=== PATIENT | female | born 1960 | race Caucasian/White ===

== ENCOUNTER 2018-10-07 10:12 | Outpatient (REF) | payer OTHER, SELFPAY ==
--- NOTE | 2018-10-07 09:00 | PAPFT_PTH ---
PATIENT: Manasa Albert LOC: [facility] U#:[id number] AGE/SX: 58/F ROOM: RE10/07/[address]: SAMARA Calvo : 1960 BED: DIS: 10/07/2018 SPEC #: [id number] RECD: 10/07/18 13:11 STATUS: JUANI RICO #: [id number] KRISHAN: 10/07/18 09:[address]: Khadijah Polanco DEPT: FA Cytology RECD BY: Ary Palmer ENTERED: 10/07/18 13:12 SP TYPE: PAPFT OTHR DR: Frank Gonsalez MD Tissues: 1 - CX/ENDOCX FOR PAP SMEARS Procedures: PAP THIN PREP/UVM Screening HPV DNA PROBE Comments: [id number]
== END 2018-10-07 10:32 ==
LOC: LBN 10:12
PROVIDERS: PCP Family Medicine; Visit Provider Nurse Practitioner Family
DX: N89.8 Other specified noninflammatory disorders of vagina (principal); Z12.4 Encounter for screening for malignant neoplasm of cervix; Z11.51 Encounter for screening for human papillomavirus (HPV)
CPT/HCPCS: 88142; 87480; 87510; 87624; 87660

== ENCOUNTER 2018-11-26 07:25 | Emergency (ER) | payer OTHER, SELFPAY ==
[2018-11-26] VITALS (16 sets, daily range): BP systolic 124–138; BP diastolic 73–84; PULSE 87–107; RESP 4–88; TEMP 37; O2SAT 90–98
--- NOTE | 2018-11-26 07:36 | W.ED.GENAD ---
Discharge Plan Disposition Patient Disposition: [facility] Discharge Details Chief Complaint: RespSymp Clinical Impression: Pneumonia, Asthma Primary Care Provider: Frank Gonsalez ED Provider: Monroe Carnes Home Meds and New Rx's Prescriptions: No Action acyclovir 800 mg tablet 800 mg PO Q4H Qty: 35 RF: 0 hydrocodone-homatropine [Hydromet] 5-1.5 mg/5 mL syrup 5 ml PO Q6H MDD 10 ml PRN (Reason: cough) Qty: 100 RF: 0 Aerochamber Plus Flow-Vu,S Msk 1 EACH spacer 1 ea Miscellaneous QID PRNRF: 0 Triumeq 1 EACH tablet 1 tab PO DAILY RF: 0 Prezcobix 1 EACH tablet 1 tab PO DAILY RF: 0 albuterol sulfate [ProAir HFA] 8.5 GM HFA aerosol inhaler 2 puff Inhalation Q4H PRN Qty: 3 RF: 1 zolpidem [Ambien] 5 MG tablet 5 mg PO HS PRNQty: 30 RF: 0 Metoprolol Succinate 50 MG TAB.ER.24H 50 mg PO DAILY Qty: 90 RF: 3 hydrochlorothiazide 25 MG tablet 1 tab PO DAILY Qty: 90 RF: 3 aspirin 325 MG tablet 325 mg PO DAILY RF: 0 Discharge Data Discharge Date/Time-TO BE ENTERED AT DEPARTURE: 11/26/18 12:03 Medical Decision Making <Calvin Babin MD - Last Filed: 11/28/18 15:17> Patient presenting with 1 week of worsening shortness of breath, wheezing. She had fever yesterday. She has history of asthma and HIV. She is not febrile here. She is hypoxic on room air with mild respiratory distress. She has been started on a DuoNeb. We will continue with [address] IV and give Solu-Medrol. She is complaining of some chest tightness which is likely all related to an asthma exacerbation. However, we will obtain EKG and troponin. Will need chest x-ray. Very likely will need admission but can re-evaluate after nebs and studies. Patient will be signed out to on coming physician, Dr. Carnes. <Monroe Carnes MD - Last Filed: 12/01/18 20:50> 8:15 -- Care signed out to me by Dr. Babin with plan to follow-up on labs, ECG, chest x-ray and reassess patient for disposition. Please see Dr. Camp's documentation regarding initial ED presentation and course. 9:45 -- Reviewed and interpreted by radiology: Mild opacities in the lower lobes may represent atelectasis or pneumonia. ECG reviewed and interpreted by me: Normal sinus rhythm 97 bpm, normal axis, no STEMI. Labs reviewed and leukocytosis noted. Hypokalemia noted. I will give K-Dur 20meq. Patient reassessed and remains with shortness of breath, tachypnea and wheeze despite 3 albuterol neb treatments. Patient notes albuterol is not helping. She did receive Solu-Medrol earlier. Decision to obtain outside hospital records. I obtained outside hospital records and reviewed CD4 count from 10/24/2018 that was noted to be 188. HIV viral load was noted to be 43 copies. Return for possible PCP pneumonia. I will initiate treatment with Bactrim IV. Patient does have a history of DVT. She is not anticoagulated. Given presentation with tachycardia, hypoxia and shortness of breath I am worried about potential PE in addition to infectious process. Will CT chest. Call placed to [facility] to request transfer. 10:21 -- Spoke with critical care at [facility]. Recommend checking abg. Agrees with CT. Recommends calling back after results for possible transfer. 10:53 -- Spoke with Dr. Irving who will accept patient in transfer. 11:20 -- Bed noted to be available. Medic called for transfer. CT of the chest interpreted by radiology:IMPRESSION: 1. No definite pulmonary embolism is seen to the level of the lobar pulmonary arterial branches bilaterally. The heterogeneous or decreased density of some small segmental and subsegmental pulmonary arterial branches may reflect inadequate enhancement, beam hardening, or motion, flow, or partial volume averaging artifact. One or more small segmental or subsegmental pulmonary emboli cannot be excluded. 2. Mild opacities in lobe right middle lobe and lingula and both lower lobes may represent atelectasis or pneumonia. Labs reviewed - ABG: pO2 63mmHg on 4L O2. pCO2 43mmHg. Will increase oxygen to 6L. -- Patient to continue bactrim en route to [facility] to receive total trimethoprim 508mg dose. HPI <Calvin Babin MD - Last Filed: 11/28/18 15:17> General Date/Time Provider Initiated Documentation: 11/26/18 07:34. Limitations to Documentation: no limitations. Information obtained by: patient. HPI Narrative: Patient presents to ED with complaints of difficulty breathing, chest tightness, wheezing. Patient does have a history of asthma. It has not bothered her for some time. She came down with a cold about a week ago. Her breathing has got progressively worse. She is been using her inhaler more recently a friend nebulizer. She is to the point where she is extremely short of breath especially with exertion, wheezing persistently, cough productive of whitish-yellow sputum. She describes tightness in her chest but not pain. She had a fever yesterday. She has nausea but no vomiting or abdominal pain. She does have a history of HIV. Counts have been good. She has had PCP pneumonia in the very distant past. She has been HIV positive since the . Related Data Home Medications Medication Instructions Recorded Confirmed Aerochamber Plus Flow-Vu,S Msk 01/04/13 10/21/18 aspirin 325 mg PO DAILY 06/24/13 11/26/18 Prezcobix 1 tab PO DAILY 10/26/16 11/26/18 Triumeq 1 tab PO DAILY 10/26/16 11/26/18 albuterol sulfate [ProAir HFA] 2 puff INHALATION Q4H PRN #3 10/26/16 11/26/18 inhaler zolpidem [Ambien] 5 mg PO HS PRN #30 tab 10/26/16 11/26/18 hydrochlorothiazide 1 tab PO DAILY #90 tab 01/25/18 11/26/18 acyclovir 800 mg tablet 800 mg PO Q4H #35 tab 10/21/18 11/26/18 hydrocodone-homatropine 5 mg-1.5 5 ml PO Q6H PRN #100 ml MDD 10 ml 10/21/18 11/26/18 mg/5 mL oral syrup Previous Rx's Medication Instructions Recorded hydrochlorothiazide 1 tab PO DAILY #90 tab 01/25/18 acyclovir 800 mg tablet 800 mg PO Q4H #35 tab 10/21/18 hydrocodone-homatropine 5 mg-1.5 5 ml PO Q6H PRN #100 ml MDD 10 ml 10/21/18 mg/5 mL oral syrup Allergies Allergy/AdvReac Type Severity Reaction Status Date / Time clindamycin Allergy Severe Verified 11/26/18 09:31 clarithromycin Allergy Mild Verified 11/26/18 09:31 halothane Allergy Mild Verified 11/26/18 09:31 Penicillins Allergy Unknown Verified 11/26/18 09:31 Opioids - Morphine Analogues AdvReac Severe Nausea Verified 11/26/18 09:31 tramadol AdvReac Severe NAUSEA, Verified 11/26/18 09:31 VOMITING diazepam AdvReac Mild HALLUCINATI Verified 11/26/18 09:31 ONS skintastic Allergy Uncoded 11/26/18 09:31 Review of Systems <Calvin Babin MD - Last Filed: 11/28/18 15:17> Review of Systems 05/22 Review of Systems completed and is negative except as stated above in HPI (Systems reviewed: Const, Eyes, ENT, Resp, CV, GI, , MSK, Skin, Neuro) PFSH <Calvin Babin MD - Last Filed: 11/28/18 15:17> Medical History HIV positive (Chronic) Hypertension (Chronic) Morbid obesity (Chronic) Mild intermittent asthma (Chronic) Surgical History Total replacement of hip (Chronic) section (Inactive) HERNIA REPAIR (Inactive) Open Carpal Tunnel release (Inactive) PROCEDURES (Inactive) Family History Mother Essential hypertension Heart disease Father Heart disease Sister No problems noted. Brother Essential hypertension Heart disease Hyperlipidemia Son Depression Asthma Daughter Depression Brother Substance abuse Grandfather Substance abuse Social History Smoking/Tobacco Use Status: Never Drug use: Never Do you feel safe in your relationship?: Yes Exam <Calvin Babin MD - Last Filed: 11/28/18 15:17> Narrative Exam Narrative: Vitals: Afebrile. Tachycardic. Room air pulse oximetry in the high 80s. On 2 L nasal cannula 97. Const: Obese female mild respiratory distress. HEENT: NC/AT. Normal facial exam. OP clear. Eyes: Normal conjunctiva and sclera. Neck: Supple. Trachea midline. Lungs: Mild respiratory distress with diffuse wheezing throughout. Cor: RRR without murmur/gallop. Good radial pulses. Tachycardic. GI: Soft, non-distended. Neuro: A+O x 3. CN grossly in tact. Good strength and no focal deficit. Ext: No C/C/E. No deformity or tenderness. Skin: Warm and dry. Sign Out <Calvin Babin MD - Last Filed: 11/28/18 15:17> Sign Out Data: Sign Out Comment: Signed out to Dr. Carnes pending labs, CXR, EKG and re-evaluation after nebs. Last updated by Calvin Babin MD at 11/26/18 08:10
[2018-11-26] MEDS: Albuterol/Ipratropium 3 ML UPD VIAL (07:38)
--- NOTE | 2018-11-26 07:45 | DI.RAD_ITS ---
SYMPTOM/DIAGNOSIS: COUGH, SOB PA AND LATERAL CHEST: Comparison is made with November 2010 The heart size is normal. There is a question of bilateral patchy opacities. No focal consolidation is seen. There is no evidence of an effusion. IMPRESSION: Question of patchy bilateral infiltrates.
--- NOTE | 2018-11-26 07:45 | ED.GENADUL_ITS ---
Discharge Plan Disposition Patient Disposition: [facility] Discharge Details Chief Complaint: RespSymp Clinical Impression: Pneumonia, Asthma Primary Care Provider: Frank Gonsalez ED Provider: Monroe Carnes Home Meds and New Rx's Prescriptions: No Action acyclovir 800 mg tablet 800 mg PO Q4H Qty: 35 RF: 0 hydrocodone-homatropine [Hydromet] 5-1.5 mg/5 mL syrup 5 ml PO Q6H MDD 10 ml PRN (Reason: cough) Qty: 100 RF: 0 Aerochamber Plus Flow-Vu,S Msk 1 EACH spacer 1 ea Miscellaneous QID PRNRF: 0 Triumeq 1 EACH tablet 1 tab PO DAILY RF: 0 Prezcobix 1 EACH tablet 1 tab PO DAILY RF: 0 albuterol sulfate [ProAir HFA] 8.5 GM HFA aerosol inhaler 2 puff Inhalation Q4H PRN Qty: 3 RF: 1 zolpidem [Ambien] 5 MG tablet 5 mg PO HS PRNQty: 30 RF: 0 Metoprolol Succinate 50 MG TAB.ER.24H 50 mg PO DAILY Qty: 90 RF: 3 hydrochlorothiazide 25 MG tablet 1 tab PO DAILY Qty: 90 RF: 3 aspirin 325 MG tablet 325 mg PO DAILY RF: 0 Discharge Data Discharge Date/Time-TO BE ENTERED AT DEPARTURE: 11/26/18 12:03 Medical Decision Making <Calvin Babin MD - Last Filed: 11/28/18 15:17> Patient presenting with 1 week of worsening shortness of breath, wheezing. She had fever yesterday. She has history of asthma and HIV. She is not febrile here. She is hypoxic on room air with mild respiratory distress. She has been started on a DuoNeb. We will continue with [address] IV and give Solu-Medrol. She is complaining of some chest tightness which is likely all related to an asthma exacerbation. However, we will obtain EKG and troponin. Will need chest x-ray. Very likely will need admission but can re- evaluate after nebs and studies. Patient will be signed out to on coming physician, Dr. Carnes. <Monroe Carnes MD - Last Filed: 12/01/18 20:50> 8:15 -- Care signed out to me by Dr. Babin with plan to follow-up on labs, ECG, chest x-ray and reassess patient for disposition. Please see Dr. Camp's documentation regarding initial ED presentation and course. 9:45 -- Reviewed and interpreted by radiology: Mild opacities in the lower lobes may represent atelectasis or pneumonia. ECG reviewed and interpreted by me: Normal sinus rhythm 97 bpm, normal axis, no STEMI. Labs reviewed and leukocytosis noted. Hypokalemia noted. I will give K-Dur 20meq. Patient reassessed and remains with shortness of breath, tachypnea and wheeze despite 3 albuterol neb treatments. Patient notes albuterol is not helping. She did receive Solu-Medrol earlier. Decision to obtain outside hospital records. I obtained outside hospital records and reviewed CD4 count from 10/24/2018 that was noted to be 188. HIV viral load was noted to be 43 copies. Return for possible PCP pneumonia. I will initiate treatment with Bactrim IV. Patient does have a history of DVT. She is not anticoagulated. Given presentation with tachycardia, hypoxia and shortness of breath I am worried about potential PE in addition to infectious process. Will CT chest. Call placed to [facility] to request transfer. 10:21 -- Spoke with critical care at [facility]. Recommend checking abg. Agrees with CT. Recommends calling back after results for possible transfer. 10:53 -- Spoke with Dr. Irving who will accept patient in transfer. 11:20 -- Bed noted to be available. Medic called for transfer. CT of the chest interpreted by radiology:IMPRESSION: 1. No definite pulmonary embolism is seen to the level of the lobar pulmonary arterial branches bilaterally. The heterogeneous or decreased density of some small segmental and subsegmental pulmonary arterial branches may reflect inadequate enhancement, beam hardening, or motion, flow, or partial volume averaging artifact. One or more small segmental or subsegmental pulmonary emboli cannot be excluded. 2. Mild opacities in lobe right middle lobe and lingula and both lower lobes may represent atelectasis or pneumonia. Labs reviewed - ABG: pO2 63mmHg on 4L O2. pCO2 43mmHg. Will increase oxygen to 6L. -- Patient to continue bactrim en route to [facility] to receive total trimethoprim 508mg dose. HPI <Calvin Babin MD - Last Filed: 11/28/18 15:17> General Date/Time Provider Initiated Documentation: 11/26/18 07:34 . Limitations to Documentation: no limitations . Information obtained by: patient . HPI Narrative: Patient presents to ED with complaints of difficulty breathing, chest tightness, wheezing. Patient does have a history of asthma. It has not bothered her for some time. She came down with a cold about a week ago. Her breathing has got progressively worse. She is been using her inhaler more recently a friend nebulizer. She is to the point where she is extremely short of breath especia lly with exertion, wheezing persistently, cough productive of whitish-yellow sputum. She describes tightness in her chest but not pain. She had a fever yesterday. She has nausea but no vomiting or abdominal pain. She does have a history of HIV. Counts have been good. She has had PCP pneumonia in the very distant past. She has been HIV positive since the . Related Data Home Medications Medication Instructions Recorded Confirmed Aerochamber Plus Flow-Vu,S Msk 01/04/13 10/21/18 aspirin 325 mg PO DAILY 06/24/13 11/26/18 Prezcobix 1 tab PO DAILY 10/26/16 11/26/18 Triumeq 1 tab PO DAILY 10/26/16 11/26/18 albuterol sulfate [ProAir HFA] 2 puff INHALATION Q4H PRN #3 10/26/16 11/26/18 inhaler zolpidem [Ambien] 5 mg PO HS PRN #30 tab 10/26/16 11/26/18 hydrochlorothiazide 1 tab PO DAILY #90 tab 01/25/18 11/26/18 acyclovir 800 mg tablet 800 mg PO Q4H #35 tab 10/21/18 11/26/18 hydrocodone-homatropine 5 mg-1.5 5 ml PO Q6H PRN #100 ml MDD 10 ml 10/21/18 11/26/18 mg/5 mL oral syrup Previous Rx's Medication Instructions Recorded hydrochlorothiazide 1 tab PO DAILY #90 tab 01/25/18 acyclovir 800 mg tablet 800 mg PO Q4H #35 tab 10/21/18 hydrocodone-homatropine 5 mg-1.5 5 ml PO Q6H PRN #100 ml MDD 10 ml 10/21/18 mg/5 mL oral syrup Allergies Allergy/AdvReac Type Severity Reaction Status Date / Time clindamycin Allergy Severe Verified 11/26/18 09:31 clarithromycin Allergy Mild Verified 11/26/18 09:31 halothane Allergy Mild Verified 11/26/18 09:31 Penicillins Allergy Unknown Verified 11/26/18 09:31 Opioids - Morphine Analogues AdvReac Severe Nausea Verified 11/26/18 09:31 tramadol AdvReac Severe NAUSEA, Verified 11/26/18 09:31 VOMITING diazepam AdvReac Mild HALLUCINATI Verified 11/26/18 09:31 ONS skintastic Allergy Uncoded 11/26/18 09:31 Review of Systems <Calvin Babin MD - Last Filed: 11/28/18 15:17> Review of Systems 05/22 Review of Systems completed and is negative except as stated above in HPI (Systems reviewed: Const, Eyes, ENT, Resp, CV, GI, , MSK, Skin, Neuro) PFSH <Calvin Babin MD - Last Filed: 11/28/18 15:17> Medical History HIV positive (Chronic) Hypertension (Chronic) Morbid obesity (Chronic) Mild intermittent asthma (Chronic) Surgical History Total replacement of hip (Chronic) section (Inactive) HERNIA REPAIR (Inactive) Open Carpal Tunnel release (Inactive) PROCEDURES (Inactive) Family History Mother Essential hypertension Heart disease Father Heart disease Sister No problems noted. Brother Essential hypertension Heart disease Hyperlipidemia Son Depression Asthma Daughter Depression Brother Substance abuse Grandfather Substance abuse Social History Smoking/Tobacco Use Status: Never Drug use: Never Do you feel safe in your relationship?: Yes Exam <Calvin Babin MD - Last Filed: 11/28/18 15:17> Narrative Exam Narrative: Vitals: Afebrile. Tachycardic. Room air pulse oximetry in the high 80s. On 2 L nasal cannula 97. Const: Obese female mild respiratory distress. HEENT: NC/AT. Normal facial exam. OP clear. Eyes: Normal conjunctiva and sclera. Neck: Supple. Trachea midline. Lungs: Mild respiratory distress with diffuse wheezing throughout. Cor: RRR without murmur/gallop. Good radial pulses. Tachycardic. GI: Soft, non-distended. Neuro: A+O x 3. CN grossly in tact. Good strength and no focal deficit. Ext: No C/C/E. No deformity or tenderness. Skin: Warm and dry. Sign Out <Calvin Babin MD - Last Filed: 11/28/18 15:17> Sign Out Data: Sign Out Comment: Signed out to Dr. Carnes pending labs, CXR, EKG and re- evaluation after nebs. Last updated by Calvin Babin MD at 11/26/18 08:10
[2018-11-26] MEDS: methylPREDNISolone SUCC 125 MG VIAL IVP (08:10)
[2018-11-26 08:13] LABS: Abs Immature Grans 0.04 k/cumm (0.0-0.09); Absolute Basophil Count 0.02 k/cumm (0.0-0.2); Absolute Eosinophil Count 0.02 k/cumm (0.0-0.7); Absolute Lymphocyte Count 3.69 k/cumm (1.2-3.4); Absolute Monocyte Count 1.08 k/cumm (0.11-0.7); Basophils % 0.2; Eosinophils % 0.2; HGB 13.2 g/dL (12.0-15.5); Immature Grans % 0.4; Lymphocytes % 32.3; Mean Corp. HGB Concentration 32.2 g/dL (32.0-36.0); Mean Corpuscular Hemoglobin 28.1 pg (27.0-33.0); Mean Corpuscular Volume 87.2 fL (80-95); Mean Platelet Volume 11.4 fL (8.0-11.0); Monocytes % 9.5; Neutrophils % 57.4; Platelet Count 149 x1000/uL (130-400); White Blood Cell Count 11.42 k/cumm (4.4-10.8)
[2018-11-26 08:18] LABS: Absolute Neutrophil Count 6.56 k/cumm (1.2-6.7)
[2018-11-26] MEDS: Albuterol 2.5 MG/3 ML INH SOLN VIAL UPD ×2 (08:20→08:50)
[2018-11-26 08:25] LABS: ALT 39 U/L (12-78); AST 35 U/L (15-37); Albumin 3.1 g/dL (3.4-5.0); Alkaline Phosphatase 99 U/L (46-116); Anion Gap 10.4 mmol/L (3-11); BUN 12 mg/dL (7-18); Bilirubin, Total 0.9 mg/dL (0.2-1.0); CO2 26.6 mmol/L (21.0-32.0); CREATININE 0.91 mg/dL (0.55-1.02); Calcium 8.3 mg/dL (8.5-10.1); Chloride 94 mmol/L (98-107); Glucose 108 mg/dL (70-100); Potassium 3.3 mmol/L (3.5-5.1); Sodium 131 mmol/L (136-145); Total Protein 8.6 g/dL (6.4-8.2)
[2018-11-26 08:27] LABS: Magnesium 1.8 mg/dL (1.8-2.4)
[2018-11-26 08:32] LABS: Troponin I < 0.02 ng/mL (0.00-0.06)
[2018-11-26 08:36] LABS: Diff Comment Agrees w/ Instrument
[2018-11-26 08:56] LABS: D-Dimer 4709 ng/mlFEU (<500)
--- NOTE | 2018-11-26 09:07 | DI.VRAD_ITS ---
EXAM: XR Chest, 2 Views EXAM DATE/TIME: 11/26/2018 7:51 AM CLINICAL HISTORY: 58 years old, female; Signs and symptoms; Cough and shortness of breath; Cough with hemorrhage TECHNIQUE: Imaging protocol: XR of the chest, 2 views. COMPARISON: CR RIGHT RIBS PA CXR-3 VIEWS 03/27/2015 10:03 PM FINDINGS: Lungs: Mild opacities in the lower lobes may represent atelectasis or pneumonia. Pleural space: Unremarkable. No pleural effusion. No pneumothorax. Heart/Mediastinum: Stable cardiac silhouette Bones/joints: Osseous structures are stable IMPRESSION: Mild opacities in the lower lobes may represent atelectasis or pneumonia. Dictated and Authenticated by: Gina Gallegos MD. Ordering:FREDDY Simpson MD
[2018-11-26] MEDS: Potassium Chloride 10 MEQ TABCR 20 MEQ PO (09:16)
--- NOTE | 2018-11-26 09:34 | DI.CT_ITS ---
SYMPTOM/DIAGNOSIS: SHORTNESS OF BREATH, TACHY, HYPOXIC, CD4 LOW CHEST CT FOR PULMONARY EMBOLISM: CT angiography was performed with multi slice acquisition and multi planar and 3D reconstruction. The exam is limited by patient body habitus and respiratory motion greater at the lung bases. No pulmonary emboli are identified however, small emboli at the lung bases cannot be entirely excluded. There are no pleural or pericardial effusions or evidence of adenopathy. There are mild patchy areas of increased density seen greatest in the left upper lobe. Additional patchy densities are seen in the left lower and right lower lobes. There is a patchy infiltrate in the medial right upper lobe. IMPRESSION: Bilateral pneumonia. No evidence of pulmonary emboli
[2018-11-26] MEDS: Omnipaque 350 MG/ML 100 ML BTL IJ (10:01)
--- NOTE | 2018-11-26 10:22 | DI.VRAD_ITS ---
EXAM: CT Angiography Chest With Contrast EXAM DATE/TIME: 11/26/2018 9:35 AM CLINICAL HISTORY: 58 years old, female; Signs and symptoms; Cough and shortness of breath; Cough with hemorrhage; Patient HX: Tachycardia, hypoxia. TECHNIQUE: Imaging protocol: Axial computed tomographic angiography images of the chest with intravenous contrast using CT angiography protocol. Coronal and sagittal reformatted images were created and reviewed. 3D rendering: MIP reconstructed images were created and reviewed. Radiation optimization: All CT scans at this facility use at least one of these dose optimization techniques: automated exposure control; mA and/or kV adjustment per patient size (includes targeted exams where dose is matched to clinical indication); or iterative reconstruction. Contrast material: OMNIPAQUE 350; Contrast volume: 100 ml; Contrast route: IV; COMPARISON: CR XR CHEST 2V PA LATERAL 11/26/2018 8:42 AM FINDINGS: Pulmonary arteries: No definite pulmonary embolism is seen to the level of the lobar pulmonary arterial branches bilaterally. The heterogeneous or decreased density of some small segmental and subsegmental pulmonary arterial branches may reflect inadequate enhancement, beam hardening, or motion, flow, or partial volume averaging artifact. One or more small segmental or subsegmental pulmonary emboli cannot be excluded. Aorta: Normal. No aortic aneurysm. No aortic dissection. Lungs: Mild opacities in lobe right middle lobe and lingula and both lower lobes may represent atelectasis or pneumonia. Pleural space: Normal. No pneumothorax. No pleural effusion. Heart: Normal. No cardiomegaly. No pericardial effusion. Lymph nodes: Unremarkable. No enlarged lymph nodes. Bones/joints: Unremarkable. No acute fracture. Soft tissues: Unremarkable. IMPRESSION: 1. No definite pulmonary embolism is seen to the level of the lobar pulmonary arterial branches bilaterally. The heterogeneous or decreased density of some small segmental and subsegmental pulmonary arterial branches may reflect inadequate enhancement, beam hardening, or motion, flow, or partial volume averaging artifact. One or more small segmental or subsegmental pulmonary emboli cannot be excluded. 2. Mild opacities in lobe right middle lobe and lingula and both lower lobes may represent atelectasis or pneumonia. Dictated and Authenticated by: Gina Gallegos MD. Ordering:FILI Childress MD
[2018-11-26 11:05] LABS: BE 2.2 mmol/L (-3-3); HCO3 27 mmol/L (22-28); pCO2 43 mmHg (34-47); pH 7.41 (7.35-7.45); pO2 63 mmHg (83-108); sO2 93 % (94-98); tCO2 24 mmol/L (22-29)
[2018-11-26 11:06] LABS: FIO2L 4 L; Site Right Radial
[2018-11-26 11:07] LABS: LDH 266 U/L (81-234)
--- NOTE | 2018-11-26 12:32 | NUR.NOTE ---
2nd bag of bactirm hanging for transport to [facility]. 3rd bag given to medic to hang when 2nd bag complete.Nursing Note:
== END 2018-11-26 12:03 | disposition short-term general hospital (02) ==
PROVIDERS: Emergency Medicine; Emergency Provider Student in an Organized Health Care Education/Training Program; PCP Family Medicine
DX: J18.9 Pneumonia, unspecified organism (principal); J45.909 Unspecified asthma, uncomplicated
CPT/HCPCS: 36415; 71275; 80053; 82805; 87040; 93005; 96365; 96375; 99285; 36600; 71046; 83605; 83615; 83735; 84484; 85025; 85379; 93010; J2930; J3490; J7613; J7620

== ENCOUNTER 2019-03-07 15:06 | Outpatient (CLI) | payer OTHER, SELFPAY ==
[2019-03-07 17:56] LABS: Abs Immature Grans 0.01 k/cumm (0.0-0.09); Absolute Basophil Count 0.01 k/cumm (0.0-0.2); Absolute Eosinophil Count 0.09 k/cumm (0.0-0.7); Absolute Monocyte Count 0.48 k/cumm (0.11-0.7); Absolute Neutrophil Count 2.24 k/cumm (1.2-6.7); Basophils % 0.2; Eosinophils % 1.8; HCT 41.6 % (36.0-46.0); HGB 12.8 g/dL (12.0-15.5); Immature Grans % 0.2; Lymphocytes % 43.7; Mean Corp. HGB Concentration 30.8 g/dL (32.0-36.0); Mean Corpuscular Hemoglobin 28.9 pg (27.0-33.0); Mean Corpuscular Volume 93.9 fL (80-95); Mean Platelet Volume 11.2 fL (8.0-11.0); Monocytes % 9.5; Neutrophils % 44.6; Platelet Count 190 x1000/uL (130-400); RBC 4.43 m/cumm (4.00-5.20); RBC Distribution Width 14.8 % (11.7-14.6); White Blood Cell Count 5.03 k/cumm (4.4-10.8)
[2019-03-07 18:05] LABS: Ferritin 84 ng/mL (8-388); TSH (W/Ref FT4) 2.62 uIU/mL (0.36-3.74)
[2019-03-07 18:16] LABS: Iron 29 ug/dL (50-175)
[2019-03-09 10:36] LABS: CD3 77 % (62-87); CD4 11 % (35-63); CD8 65 % (10-35)
[2019-03-09 14:57] LABS: HIV-1 RNA Quantification <20 copies/mL (UNDECT)
== END 2019-03-07 15:26 ==
PROVIDERS: Nurse Practitioner; PCP Family Medicine; Visit Provider Internal Medicine Infectious Disease
DX: L65.9 Nonscarring hair loss, unspecified (principal); L67.9 Hair color and hair shaft abnormality, unspecified; B20 Human immunodeficiency virus [HIV] disease
CPT/HCPCS: 36415; 87536; 82728; 83540; 84443; 85025; 86359; 86360

== ENCOUNTER 2019-09-18 21:55 | Emergency (ER) | payer OTHER, SELFPAY ==
[2019-09-18] VITALS (16 sets, daily range): BP systolic 64–152; BP diastolic 32–115; PULSE 70–155; RESP 8–42; O2SAT 86–100
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
[2019-09-18] MEDS: Normal Saline 1,000 ML 1000 ML IV (22:05)
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
[2019-09-18] MEDS: fentaNYL 100 MCG/2 ML VIAL IVP ×2 (22:32→23:44)
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
[2019-09-18 22:35] LABS: Abs Immature Grans 0.16 k/cumm (0.0-0.09); HGB 10.9 g/dL (12.0-15.5); Mean Corp. HGB Concentration 29.5 g/dL (32.0-36.0); Mean Corpuscular Hemoglobin 27.2 pg (27.0-33.0); Mean Corpuscular Volume 92.3 fL (80-95); Mean Platelet Volume 10.2 fL (8.0-11.0); Platelet Count 154 x1000/uL (130-400); RBC 4.01 m/cumm (4.00-5.20); RBC Distribution Width 15.2 % (11.7-14.6); White Blood Cell Count 17.89 k/cumm (4.4-10.8)
[2019-09-18 22:36] LABS: Absolute Lymphocyte Count 9.84 k/cumm (1.2-3.4); Absolute Monocyte Count 1.61 k/cumm (0.11-0.7); Absolute Neutrophil Count 6.44 k/cumm (1.2-6.7); Atypical Lymphocytes % 8
[2019-09-18 22:37] LABS: Diff Comment Manual Differential; Hypochromasia 1+
[2019-09-18 22:38] LABS: Polychromasia Present
[2019-09-18 22:53] LABS: ALT 39 U/L (14-59); AST 57 U/L (15-37); Albumin 2.6 g/dL (3.4-5.0); Alkaline Phosphatase 86 U/L (46-116); Anion Gap 7.8 mmol/L (3-11); BUN 21 mg/dL (7-18); Bilirubin, Total 0.3 mg/dL (0.2-1.0); CO2 29.2 mmol/L (21.0-32.0); CREATININE 0.93 mg/dL (0.55-1.02); Calcium 7.6 mg/dL (8.5-10.1); Chloride 105 mmol/L (98-107); Glucose 209 mg/dL (74-106); INR 1.1 (0.9-1.1); Magnesium 1.8 mg/dL (1.8-2.4); Potassium 3.9 mmol/L (3.5-5.1); Sodium 142 mmol/L (136-145); Total Protein 6.7 g/dL (6.4-8.2); Troponin I < 0.05 ng/Ml (<0.06)
[2019-09-18] MEDS: diphenhydrAMINE 50 MG/ML VIAL (23:02)
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
[2019-09-18 23:33] LABS: LDH 334 U/L (81-234)
[2019-09-18] MEDS: VANCOMYCIN 1,500 MG in Normal Saline 250 ML 166.6666 MG IVPB (23:45)
[2019-09-18] MEDS: Albuterol/Ipratropium 3 ML UPD VIAL (23:53)
[2019-09-19] MEDS: Omnipaque 350 MG/ML 100 ML BTL IJ (00:05)
--- NOTE | 2019-09-19 00:18 | NUR.NOTE ---
Ennis from patient's pocket totalled $324.25 counted and checked by myself and Amaury. Given to daughter, Vilma along with her pocket book, cell phone noted in front pocket of her pocket book. Patient's coat also given to daughter. No other personal belongs (clothing cut, soiled and was disposed).
--- NOTE | 2019-09-19 00:35 | NUR.NOTE ---
2226 one unit uncrossed O neg blood rapid infused in R forearm. 223 Packed cells infused and second unit started. 2235 second unit completed. see rapid transfusion record for co-sign 2228 pt increasingly difficult to arouse. tachypnea. 223 Providers reduced R tib/fib with assist and splint applied after suture 2232 temp 36.1 2344 89% O2 sats - RT placed on 15L NRB mask, HR 98, RR 36, 117/55 2255 FAST scan by provider at bedside [address] on monitor and with RT, medic, certified hyperbaric technician and RN [address] 2345 pt increasingly difficult to arouse. aware and in to reassess pt. [id number] pt transported to [facility] via [facility]. report given to RBOIN De Los Santos. Vancomycin infusing on departure.
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
== END 2019-09-19 00:10 | disposition short-term general hospital (02) ==
PROVIDERS: Physician Assistant; Emergency Provider Physician Assistant; PCP Family Medicine
DX: I95.89 Other hypotension (principal); S85.911 Laceration of unspecified blood vessel at lower leg level, right leg; S22.41XA Multiple fractures of ribs, right side, initial encounter for closed fracture; S82.251B Displaced comminuted fracture of shaft of right tibia, initial encounter for open fracture type I or II; S82.451B Displaced comminuted fracture of shaft of right fibula, initial encounter for open fracture type I or II; V43.52XA Car driver injured in collision with other type car in traffic accident, initial encounter; I10 Essential (primary) hypertension; Z21 Asymptomatic human immunodeficiency virus [HIV] infection status; J45.909 Unspecified asthma, uncomplicated
CPT/HCPCS: 27752; 36415; 36430; 74177; 80053; 86850; 86900; 86901; 86920; 94640; 96365; 96368; 96375; 96376; 99291; 99292; 70450; 71045; 72125; 72128; 72131; 73600; 83615; 83735; 84484; 85025; 85610; 85730; 86880; J1200; J3010; J3490; J7620; P9016

== ENCOUNTER 2020-01-08 14:20 | Outpatient (REF) | payer OTHER, SELFPAY ==
[2020-01-08 12:15] LABS: Bilirubin Negative (Negative); Blood Negative (Negative); Clarity Clear (Clear); Glucose Negative (Negative); Ketones Negative (Negative); Leukocyte Esterase Negative (Negative); Nitrite Negative (Negative); Specific Gravity >= 1.030 (1.005-1.025); Urobilinogen 0.2 EU/dL (Up TO 0.2); pH 5.5 (5-8)
== END 2020-01-08 14:40 ==
LOC: LBN 14:20
PROVIDERS: PCP Family Medicine; Visit Provider Internal Medicine Infectious Disease
DX: R32 Unspecified urinary incontinence (principal)
CPT/HCPCS: 81003

== ENCOUNTER 2020-04-04 21:11 | Outpatient (REF) | payer OTHER, SELFPAY ==
[2020-04-04 14:21] LABS: Abs Immature Grans 0.01 10^3/uL (0.0-0.06); Absolute Basophil Count 0.02 10^3/uL (0.0-0.2); Absolute Eosinophil Count 0.05 10^3/uL (0.0-0.7); Absolute Lymphocyte Count 2.24 10^3/uL (1.2-3.4); Absolute Monocyte Count 0.52 10^3/uL (0.1-0.8); Absolute Neutrophil Count 1.88 10^3/uL (1.2-6.7); Basophils % 0.4; Eosinophils % 1.1; HCT 43.2 % (36.0-46.0); HGB 13.1 g/dL (11.2-15.7); Immature Grans % 0.2; Lymphocytes % 47.5; MCH 27.8 pg (27.0-33.0); MCHC 30.3 % (32.0-36.0); MCV 91.7 fL (80-95); Neutrophils % 39.8; Nucleated RBC 0 %; Platelet Count 220 10^3/uL (130-400); RBC 4.71 10^6/uL (3.93-5.22); RDW 15.1 % (11.7-14.6); RDW-SD 51.8 fL; WBC 4.72 10^3/uL (4.4-10.8)
[2020-04-04 14:29] LABS: ALT 25 U/L (14-59); AST 20 U/L (15-37); Albumin 3.3 g/dL (3.4-5.0); Alkaline Phosphatase 92 U/L (46-116); Anion Gap 5.7 mmol/L (3-11); BUN 17 mg/dL (7-18); Bilirubin, Total 0.4 mg/dL (0.2-1.0); C-Reactive Protein 0.94 mg/dL (0.0-0.3); CO2 32.3 mmol/L (21.0-32.0); CREATININE 0.67 mg/dL (0.55-1.02); Calcium 8.8 mg/dL (8.5-10.1); Chloride 103 mmol/L (98-107); Glucose 75 mg/dL (74-106); Potassium 4.3 mmol/L (3.5-5.1); Sodium 141 mmol/L (136-145); Total Protein 7.6 g/dL (6.4-8.2)
[2020-04-04 14:59] LABS: ESR 26 mm/hr (0-30)
== END 2020-04-04 21:31 ==
LOC: LBN 21:11
PROVIDERS: PCP Family Medicine; Visit Provider Family Medicine
DX: B20 Human immunodeficiency virus [HIV] disease (principal)
CPT/HCPCS: 80053; 85652; 85025; 86140

== ENCOUNTER 2020-05-03 07:32 | Outpatient (CLI) | payer OTHER, MEDICAID, SELFPAY ==
[2020-05-06 16:53] LABS: Patient Race White; SARS-CoV-2 RNA Undetected (Undetected); SARS-CoV-2 Specimen Source Nasopharynx
== END 2020-05-03 07:52 ==
PROVIDERS: PCP Family Medicine; Visit Provider Family Medicine
DX: R05 Cough (principal)
CPT/HCPCS: U0003

== ENCOUNTER 2020-06-07 18:29 | Emergency (ER) | payer OTHER, SELFPAY, MEDICAID ==
[2020-06-07 18:37] VITALS: BP 165/99; PULSE 102; RESP 22; TEMP 36.6; O2SAT 94
--- NOTE | 2020-06-07 18:38 | W.ED.GENAD ---
Discharge Plan Disposition Patient Disposition: HOME Condition: Stable Discharge Details Clinical Impression: Right foot sprain Primary Care Provider: Frank Gonsalez ED Provider: Ryder Taylor Home Meds and New Rx's Prescriptions: Continued Biktarvy 50-200-25 mg tablet 1 tab PO DAILY Qty: 30 RF: 11 escitalopram oxalate 10 mg tablet 10 mg PO DAILY Qty: 30 RF: 11 lorazepam 0.5 mg tablet 0.5 mg PO BID PRN (Reason: anxiety) Qty: 30 RF: 5 (DME) Aerochamber Plus Flow-Vu,S Msk 1 EACH spacer 1 ea Miscellaneous QID RF: 0 Prezcobix 1 EACH tablet 1 tab PO DAILY RF: 0 albuterol sulfate [ProAir HFA] 8.5 GM HFA aerosol inhaler 2 puff Inhalation Q4H PRN Qty: 3 RF: 1 hydrochlorothiazide 25 mg tablet 25 mg PO DAILY Qty: 90 RF: 3 metoprolol succinate 50 mg tablet extended release 24 hr 50 mg PO DAILY Qty: 90 RF: 3 ascorbic acid (vitamin C) 500 mg capsule 500 mg PO DAILY RF: 0 ferrous sulfate 325 mg (65 mg iron) tablet 325 mg PO DAILY RF: 0 aspirin 325 MG tablet 325 mg PO DAILY RF: 0 Discharge Instructions Instructions: Foot Sprain (ED) Additional Instructions: if pain is not improving within a week follow up with your orthopedist return to the emergency department for severe worsening pain or new pain such as chest pain Medical Decision Making 59 yo female states she was doing laundry when she tripped over a run and hurt her right foot. Denies hitting head or loc and had no preceding symptoms, states it was purely mechanical trip. Has pain over distal right foot with no palpable or visible deformity. Has a leg splint on and states it is not supposed to come off for another week, had open ankle fx requiring surgical fixation last September. HAs normal pulses and sensation and can move the toes just with some discomfort. Suspect foot sprain but will xray to evaluate for fx. Is able to bear weight on the foot which is reassuring. Has no head pain, midline spine pain and no chest or abdominal tenderness so do not feel additional imaging indicated at this time xray negative for acute findings, stable exam with no new findings. ADvised to f/u with her orthopedist and return precautions given Differential Diagnosis Differential Diagnosis: fracture, contusion Imaging Data Radiologic Study: Attestation: I personally reviewed and interpreted this imaging study as follows: Imaging: X-Ray Radiologist's impression: no acute findings HPI General Mode of arrival: ambulatory. Date/Time Provider Initiated Documentation: 06/07/20 18:29. Limitations to Documentation: no limitations. Information obtained by: patient. History of Present Illness 59 year old F presents to the emergency department with the chief complaint of right foot pain, described as moderate, Patient started experiencing this hour(s) (1) and it has been constant. No relieving factors improve symptom(s), No exacerbating factors reported . Patient notes no other symptoms.. Patient did receive the following treatments prior to arrival, none Related Data Home Medications Medication Instructions Recorded Confirmed Aerochamber Plus Flow-Jaguar Rangel Msk 01/04/13 05/22/20 aspirin 325 mg PO DAILY 06/24/13 06/07/20 Prezcobix 1 tab PO DAILY 10/26/16 06/07/20 albuterol sulfate [ProAir HFA] 2 puff INHALATION Q4H PRN #3 10/26/16 06/07/20 inhaler hydrochlorothiazide 25 mg tablet 25 mg PO DAILY #90 tab 07/18/19 06/07/20 metoprolol succinate 50 mg 50 mg PO DAILY #90 tab 07/18/19 06/07/20 tablet,extended release 24 hr bictegravir 50 mg-emtricitabine 1 tab PO DAILY #30 tab 12/05/19 06/07/20 200 mg-tenofovir alafenam 25 mg tablet ascorbic acid (vitamin C) 500 mg 500 mg PO DAILY cap 12/06/19 06/07/20 capsule ferrous sulfate 325 mg (65 mg 325 mg PO DAILY 12/06/19 06/07/20 iron) tablet escitalopram oxalate 10 mg tablet 10 mg PO DAILY #30 tab 05/22/20 06/07/20 lorazepam 0.5 mg tablet 0.5 mg PO BID PRN #30 tab 05/22/20 06/07/20 Previous Rx's Medication Instructions Recorded hydrochlorothiazide 25 mg tablet 25 mg PO DAILY #90 tab 07/18/19 metoprolol succinate 50 mg 50 mg PO DAILY #90 tab 07/18/19 tablet,extended release 24 hr bictegravir 50 mg-emtricitabine 1 tab PO DAILY #30 tab 12/05/19 200 mg-tenofovir alafenam 25 mg tablet escitalopram oxalate 10 mg tablet 10 mg PO DAILY #30 tab 05/22/20 lorazepam 0.5 mg tablet 0.5 mg PO BID PRN #30 tab 05/22/20 Allergies Allergy/AdvReac Type Severity Reaction Status Date / Time clindamycin Allergy Severe Verified 06/07/20 18:44 clarithromycin Allergy Mild Verified 06/07/20 18:44 halothane Allergy Mild Verified 06/07/20 18:44 Penicillins Allergy Unknown Verified 06/07/20 18:44 amoxicillin Allergy Verified 06/07/20 18:44 Opioids - Morphine Analogues AdvReac Severe Nausea Verified 06/07/20 18:44 tramadol AdvReac Severe NAUSEA, Verified 06/07/20 18:44 VOMITING diazepam AdvReac Mild HALLUCINATI Verified 06/07/20 18:44 ONS skintastic Allergy Uncoded 06/07/20 18:44 General YARON: 1 Review of Systems All systems reviewed & are unremarkable except as noted in HPI and below Constitutional Constitutional: Denies chills, Denies fever(s) and Denies weakness Cardiovascular Cardiovascular: Denies chest pain and Denies dyspnea Respiratory Respiratory: Denies cough and Denies dyspnea Gastrointestinal Gastrointestinal: Denies abdominal pain, Denies nausea and Denies vomiting Musculoskeletal Musculoskeletal: Denies joint swelling Neurologic Neurologic: Denies weakness Psychiatric Psychiatric: Denies depression [facility] Medical History (Updated 06/07/20 @ 19:15 by Ryder Taylor MD) Alopecia Discussed with patient the need for gentle hair care, good conditioning, and gentle brushing,. At this time we will check a TSH, iron, ferritin. Will defer RPR, patient states she has not been sexually active since last RPR was checked HIV positive On HAART program. Acquired immunodeficiency syndrome diagnosied in 1999 with incident of Pneumocystis pneumonia. Followed by Dr. Rey Love in Infectious Disease down at [facility] [place]. CD4 count 321 in 2012, which is a good value. Hypertension Mild intermittent asthma Morbid obesity Surgical History section HERNIA REPAIR ABDOMINAL WALL Open Carpal Tunnel release LEFT PROCEDURES Right wrist disconnect/removal of bone Total replacement of hip 11/21/08 RIGHT HIP 09/08/11 LEFT HIP 2011 [facility] [place], B/L Family History Mother Essential hypertension Heart disease Father Heart disease Sister No problems noted. Brother Essential hypertension Heart disease Hyperlipidemia Son Depression Asthma Daughter Depression Brother Substance abuse Grandfather Substance abuse Social History Smoking/Tobacco Use Status: Never Smoking risk assessment performed?: Yes Alcohol Intake: current Alcohol Intake frequency: holidays/special occasions only Drug use: Never Substance use type: does not use Do you feel safe at home: Yes Do you feel safe in your relationship?: Yes Exam Const General: no acute distress Orientation: alert HENMT Head: normal to inspection Ears: external ears normal General nose exam: external nose normal Mouth: moist mucous membranes Eyes General: appearance normal, both eyes and all related structures Neck Neck: normal visual inspection Resp Effort & Inspection: normal respiratory effort and able to speak in complete sentences Cardio Rate: regular rate Skin General skin exam: no rashes or lesions noted Neuro General: patient alert and patient oriented x3 Extrem General: capillary refill normal Psych Mental Status: mental status grossly normal
--- NOTE | 2020-06-07 18:58 | DI.RAD_ITS ---
EXAM: XR FOOT RT COMPLETE CLINICAL HISTORY: pain s/p fall. TECHNIQUE: 2D digital imaging was performed. COMPARISON: CR RIGHT FOOT COMPLETE from 08/09/2014 FINDINGS: BONES: Since the prior examination, a orthopedic holland is in place extending from the tibia through the talus into the calcaneus. Old distal tibial and fibular fractures are noted. No definite acute fra cture or dislocation. No bony destructive lesion is seen. JOINTS: No dislocation present. SOFT TISSUE: Generalized soft tissue swelling of the foot. The foot and ankle are in a cast. IMPRESSION: No definite acute abnormality. DATA REPOSITORY: RADIATION DOSE DELIVERED:
--- NOTE | 2020-06-07 19:13 | DI.VRAD_ITS ---
PROCEDURE INFORMATION: Exam: XR Right Foot Complete Exam date and time: 06/07/2020 6:59 PM Age: 59 years old Clinical indication: Injury or trauma; Fall; Blunt trauma; Foot; Right; Injury date: 06/07/20; Prior surgery; Surgery type: Tibial rodding TECHNIQUE: Imaging protocol: XR Right foot. Views: 3 or more views. COMPARISON: 1. CR RIGHT FOOT COMPLETE 08/09/2014 7:17 PM 2. CR - XR ANKLE RT 2V 09/18/2019 10:10:08 PM FINDINGS: Bones/joints: There is generalized osteopenia. Interval placement of a tibial holland extending through the anterior calcaneus with a calcaneal screw. There are remote fractures of the distal tibia and fibula. No definite acute fracture is seen. No dislocation Soft tissues: Mild diffuse soft tissue swelling. There is overlying splint artifact. IMPRESSION: No definite acute osseous abnormality. Dictated and Authenticated by: Moustapha Sadler MD. Ordering:ROWENA Soler MD
== END 2020-06-07 19:22 | disposition home or self-care (01) ==
PROVIDERS: Emergency Provider Emergency Medicine; PCP Family Medicine
DX: S93.601A Unspecified sprain of right foot, initial encounter (principal); W01.0XXA Fall on same level from slipping, tripping and stumbling without subsequent striking against object, initial encounter; Z87.81 Personal history of (healed) traumatic fracture; Z98.890 Other specified postprocedural states; I10 Essential (primary) hypertension
CPT/HCPCS: 99283; 73630

== ENCOUNTER 2020-08-27 03:40 | Outpatient (CLI) | payer OTHER, MEDICAID, SELFPAY ==
[2020-08-27 11:19] LABS: Abs Immature Grans 0.02 10^3/uL (0.0-0.06); Absolute Basophil Count 0.03 10^3/uL (0.0-0.2); Absolute Eosinophil Count 0.03 10^3/uL (0.0-0.7); Absolute Lymphocyte Count 2.94 10^3/uL (1.2-3.4); Absolute Neutrophil Count 2.33 10^3/uL (1.2-6.7); Basophils % 0.5; Eosinophils % 0.5; HCT 42.8 % (36.0-46.0); HGB 12.9 g/dL (11.2-15.7); Immature Grans % 0.3; Lymphocytes % 49.4; MCH 27.3 pg (27.0-33.0); MCHC 30.1 % (32.0-36.0); MCV 90.5 fL (80-95); Monocytes % 10.1; Neutrophils % 39.2; Nucleated RBC 0 %; Platelet Count 199 10^3/uL (130-400); RBC 4.73 10^6/uL (3.93-5.22); RDW 15.1 % (11.7-14.6); RDW-SD 50.5 fL; WBC 5.95 10^3/uL (4.4-10.8)
[2020-08-27 11:47] LABS: ALT 26 U/L (14-59); AST 21 U/L (15-37); Albumin 3.2 g/dL (3.4-5.0); Alkaline Phosphatase 95 U/L (46-116); BUN 20 mg/dL (7-18); Bilirubin, Total 0.5 mg/dL (0.2-1.0); CREATININE 0.76 mg/dL (0.55-1.02); Calcium 8.9 mg/dL (8.5-10.1); Chloride 103 mmol/L (98-107); Glucose 102 mg/dL (74-106); Potassium 4.3 mmol/L (3.5-5.1); Sodium 139 mmol/L (136-145); Total Protein 8.7 g/dL (6.4-8.2)
[2020-08-29 15:05] LABS: HIV 1 RNA Qualitative Detected copies/mL (Undetected); HIV 1 RNA Quantitative <20 copies/mL (Undetected)
[2020-08-29 15:51] LABS: CD3 80 % (62-87); CD4 8 % (35-63); CD8 72 % (10-35)
== END 2020-08-27 04:00 ==
PROVIDERS: PCP Family Medicine; Visit Provider Internal Medicine Infectious Disease
DX: B20 Human immunodeficiency virus [HIV] disease (principal)
CPT/HCPCS: 36415; 80053; 87536; 85025; 86359; 86360

== ENCOUNTER 2020-10-04 12:41 | Outpatient (REF) | payer OTHER, MEDICAID, SELFPAY ==
[2020-10-04 11:33] LABS: Abs Immature Grans 0.01 10^3/uL (0.0-0.06); Absolute Basophil Count 0.02 10^3/uL (0.0-0.2); Absolute Eosinophil Count 0.04 10^3/uL (0.0-0.7); Absolute Lymphocyte Count 2.74 10^3/uL (1.2-3.4); Absolute Monocyte Count 0.54 10^3/uL (0.1-0.8); Absolute Neutrophil Count 2.09 10^3/uL (1.2-6.7); Basophils % 0.4; Eosinophils % 0.7; HCT 41.8 % (36.0-46.0); HGB 12.6 g/dL (11.2-15.7); Immature Grans % 0.2; Lymphocytes % 50.4; MCHC 30.1 % (32.0-36.0); MCV 89.5 fL (80-95); MPV 11.3 fL (8.0-11.0); Monocytes % 9.9; Neutrophils % 38.4; Nucleated RBC 0 %; Platelet Count 199 10^3/uL (130-400); RBC 4.67 10^6/uL (3.93-5.22); RDW 15.2 % (11.7-14.6); RDW-SD 49.5 fL; WBC 5.44 10^3/uL (4.4-10.8)
== END 2020-10-04 12:42 | disposition home or self-care (01) ==
LOC: LBN 12:41
PROVIDERS: PCP Family Medicine; Visit Provider Physical Therapy Assistant
DX: S91.001A Unspecified open wound, right ankle, initial encounter (principal)
CPT/HCPCS: 85025

== ENCOUNTER 2020-12-05 01:09 | Outpatient (CLI) | payer OTHER, SELFPAY ==
--- NOTE | 2020-12-05 08:36 | W.NUTRFU ---
Date of service: 12/05/20 Time of Service: 08:37 Nutritional Follow up NOTE: Spoke to Manasa on phone today. She reports 7 lbs weight gain in last 6 weeks since starting meal plan set up for wound healing . Reports wound is getting smaller. Manasa is concerned about weight gain since starting to eat 3 times per day, increased protein intake. Explained to Manasa that wound healing needs to be main focus at this time and that weight gain may occur. Encouraged her to continue to meet nutrient and fluid needs by following meal plan we set up to meet increased nutrient needs for wound healing. Also, encouraged her to continue with MVI, iron supplement and 1000 mg Vit C daily. Encouraged follow up prn per phone/in person. Once wound healed, Manasa to follow up on weight management strategies for weight loss. Time Spent in Nutritional Counseling and Treatment: 10
--- NOTE | 2020-12-05 11:07 | DI.US_ITS ---
APPROVED REPORT EXAM: Comprehensive 2D, Doppler, and color-flow Echocardiogram Patient Location: Out-Patient Ms Sql Developer: Hetal Chamorro RDCS (AE) Indications: Increasing shortness of breath Other Information Study Quality: Technically Difficult. Technically limited study due to body habitus. Conclusion Left Ventricle : The left ventricle is normal size. The left ventricular systolic function is normal. The left ventricular ejection fraction is within the normal range. There is normal left ventricular wall thickness. There is normal LV segmental wall motion. The left ventricular diastolic function is normal. LVEF is 58%. Right Ventricle : Right ventricle is grossly normal in size. Right ventricular systolic function is g rossly normal. The RVSP is 28.1 mmHg. Atria : The left atrium size is normal. The right atrium size is normal. Mitral Valve : Mild mitral annular calcification. Mild mitral regurgitation. No evidence of mitral va lve stenosis. Great Vessels : The aortic root is normal in size. Ascending aorta is not well visualized. Aortic arc h is normal in caliber. IVC is normal in size and collapses >50% with inspiration. Please see remainder of study for further details. Wall motion Left Ventricle The left ventricle is normal size. The left ventricular systolic function is normal. The left ventric ular ejection fraction is within the normal range. There is normal left ventricular wall thickness. T here is normal LV segmental wall motion. The left ventricular diastolic function is normal. There is no ventricular septal defect visualized. LVEF is 58%. Right Ventricle Right ventricle is grossly normal in size. Right ventricular systolic function is grossly normal. The RVSP is 28.1 mmHg. Atria The left atrium size is normal. The right atrium size is normal. The interatrial septum is intact wit h no evidence for an atrial septal defect. Aortic Valve Aortic valve is trileaflet. There is no aortic valvular stenosis. No aortic regurgitation is present. Mitral Valve Mild mitral annular calcification. No evidence of mitral valve stenosis. Mild mitral regurgitation. Tricuspid Valve The tricuspid valve is normal in structure. There is no tricuspid valve stenosis. Trace to mild tricu spid regurgitation. Pulmonic Valve Pulmonic valve is not well visualized. There is no pulmonic valvular stenosis. There is no pulmonic v alvular regurgitation. Great Vessels The aortic root is normal in size. Ascending aorta is not well visualized. Aortic arch is normal in c aliber. IVC is normal in size and collapses >50% with inspiration. Pericardium There is no pericardial effusion. 2D Dimensions IVSD d PLAX 1.05 cm F: 0.6-1.0 LV Vol A2C d MOD 130.0 mL LVPW d PLAX 1.00 cm F: 0.6 - 1.0 LV Vol A4C d MOD 122.8 mL LVID d PLAX 4.81 cm F: 3.8 - 5.2 LA vol/ BSA A2C s A-L 27.3 mL/m2 LVDs 3.25 cm F: 2.2 - 3.5 LA vol/ BSA A4C s A-L 37.2 mL/m2 Ao Root d 3.19 cm F: 2.7 - 3.3 LA Vol/ BSA Biplane s A-L 35.1 mL/m2 RA Area A4C 18.02 cm2 LA Area A4C s MOD 25.46 cm2 RA Vol/ BSA A4C s A-L 22.9 mL/m2 LA Area A2C s MOD 19.81 cm2 LV EF Teichholz 59.5 % LV EF A4C MOD 58.7 % LVEF (Zimmer's) 58.04 % F: 54 - 74 LV EF A2C MOD 57.3 % LV Volume 90.91 mL F: 46 - 106 LV EF Biplane MOD 58.0 % LV Volume Index 38.03 mL/m2 F: 29 - 61 SV 74.42 mL LV Vol Biplane MOD 128.2 mL SV Index 31.11 mL/m2 FS 31.60 % M-Mode TAPSE 3.05 cm (M/F) >1.7 LV Diastology MV E' medial 0.140 (>0.07 m/s) E/A Ratio 1.3 LV E/e MED 6.65 (<14) MV E Vmax 0.93 (0.4-1.3 m/s) MV E' lateral 0.137 (>0.1 m/s) MV A Vmax 0.70 (0.4-1.3 m/s) LV E/e LAT 6.80 (<14) MV E/A Ratio 1.26 MV E/E' medial 6.66 MV E/E' lateral 6.82 Aortic Valve LVOT Area 2.72 cm2 AoV Area Vmax 2.17 cm2 LVOT Vmax 1.20 m/s AoV Area/ BSA (Vmax) 0.91 cm2/m2 LVOT Mean Orlin. 0.80 m/s AJ Mean Orlin. 1.97 cm2 LVOT Peak Grad 5.7 mmHg AJ Mean Orlin. Index 0.82 cm2/m2 LVOT Mean Grad 3.0 mmHg LVOT VTI 0.284 m LVOT Diam s 1.85 cm AoV Vmax 1.50 m/s Velocity Ratio 0.80 AoV Mean Orlin. 1.11 m/s AoV Peak Grad 9.0 mmHg LVOT SV 77.09 mL AoV Mean Grad 5.3 mmHg AoV VTI 0.358 m AoV Area VTI 2.15 cm2 AoV Area/ BSA (VTI) 0.90 cm/m2 Mitral Valve MV DT 203 (160-240 msec) MV PHT 59 msec MV Area PHT 3.74 cm2 MV VTI 0.306 m MV VTI Annulus 0.314 m MV Area VTI 2.59 (4.0-6.0 cm2) Pulmonary Valve PV Vmax 0.95 (0.5-1.5 m/s) RVOT Peak Gr. 2.61 mmHg PV Peak Grad 3.6 mmHg RVOT Mean Gr. 1.60 mmHg PV Mean Grad 2.2 mmHg RVOT VTI 0.214 m PV VTI 0.227 m RVOT Vmax 0.81 m/s Tricuspid Valve TR Peak Grad 25.1 mmHg TR Vmax 2.51 m/s RA Pressure 3.00 mmHg RVSP (TR) 28.1 mmHg
== END 2020-12-05 01:29 ==
PROVIDERS: PCP Nurse Practitioner Family; Visit Provider Nurse Practitioner Family
DX: R06.02 Shortness of breath (principal); I34.0 Nonrheumatic mitral (valve) insufficiency; R93.9 Diagnostic imaging inconclusive due to excess body fat of patient
CPT/HCPCS: 93306

== ENCOUNTER 2021-05-09 09:36 | Outpatient (REF) | payer OTHER, SELFPAY ==
--- NOTE | 2021-05-09 09:19 | PAPFT_PTH ---
PATIENT: Manasa Albert LOC: [facility] U#:[id number] AGE/SX: 60/F ROOM: RE05/09/[address]: Areli Murphy MD : 1960 BED: DIS: 05/09/2021 SPEC #: [id number] RECD: 05/09/21 12:52 STATUS: JUANI REKarine #: [id number] KRISHAN: 05/09/21 09:[address]: Areli Murphy DEPT: PENDING SALE TO [facility] Cytology RECD BY: Ary Palmer ENTERED: 05/09/21 12:52 SP TYPE: PAPFT OT DR: Juan Miguel Bennett, TIFFANIE Tissues: 1 - CX/ENDOCX FOR PAP SMEARS Procedures: PAP THIN PREP/UVM Screening HPV DNA PROBE Comments: [id number]
== END 2021-05-09 09:37 | disposition home or self-care (01) ==
LOC: LBN 09:36
PROVIDERS: PCP Nurse Practitioner Family; Visit Provider Obstetrics & Gynecology
DX: Z12.4 Encounter for screening for malignant neoplasm of cervix (principal); Z11.51 Encounter for screening for human papillomavirus (HPV)
CPT/HCPCS: 88142; 87624

== ENCOUNTER 2021-05-26 01:40 | Outpatient (CLI) | payer OTHER, SELFPAY ==
--- NOTE | 2021-05-26 06:15 | DI.MAMMO_ITS ---
Exam(s) MAMMO SCREENING EXAM: MAMMO SCREENING CLINICAL HISTORY: screening,Z12.39. TECHNIQUE: Bilateral full field digital CC and MLO mammographic images were obtained with 3D tomosyn thesis and utilizing computer aided detection (CAD). COMPARISON: Prior mammograms dating back to 2011, the most recent being . FINDINGS: There are no new spiculated masses nor malignant appearing microcalcification groups. There is no significant architectural distortion nor skin thickening-retraction. IMPRESSION: No radiographic evidence of malignancy. BI-RADS Category 1 - Negative Breast Density - Category B - Scattered areas of fibroglandular density Breast density Category C or D implies that the patient has dense breast tissue. Dense breast tissue can make it harder to find cancer on a mammogram. Dense breast tissue is also associated with an incr eased risk of breast cancer. This information about the result of the mammogram report was provided to the patient to raise their awareness. Use this report when you speak with the patient about their risks for breast cancer, which includes their family history. At that time, you may recommend additional screening tests (Ultrasoun d or MRI) as these tests may add significant information. A negative radiographic report should not delay biopsy if a dominant or clinically suspicious mass is present. Up to ten percent of cancers are not identified on mammography. A negative report may reinforce clinical impression. Adenosis and dense breasts may obscure an underlying neoplasm. False positive reports average 6 to 10%. Patient will receive a letter notifying them of these results.
== END 2021-05-26 02:00 ==
PROVIDERS: PCP Nurse Practitioner Family; Visit Provider Nurse Practitioner Family
DX: Z12.31 Encounter for screening mammogram for malignant neoplasm of breast (principal)
CPT/HCPCS: 77063; 77067

== ENCOUNTER 2021-08-28 12:32 | Outpatient (CLI) | payer OTHER, SELFPAY ==
--- OUTSIDE RECORDS SUMMARY | 2021-08-28 12:39 | XMS_ITS ---
:1960 Author Organization [facility] Address [address] [place] [address] Care Team Providers Name Role Phone Carlos Unavailable Unavailable PROBLEMS Type Condition ICD9-CM Code NXE03-NB Code Onset Condition SNO MED Code Dates Status Problem Chronic ulcer L97.312 Active [id number] 008 of right ankle with fat layer exposed ALLERGIES No Known Allergies ENCOUNTERS Encounter Location Date Diagnosis [facility] [address] Jul, [place] [address] [facility] [address] Jul, [place] [address] [facility] [address] 25 Jun, 2020 [place] [address] [facility] [address] 19 Jun, 2020 [place] [address] [facility] [address] 12 Jun, 2020 [place] [address] [facility] [address] 05 Jun, 2020 [place] [address] [facility] [address] 29 May, 2020 [place] [address] [facility] [address] 22 May, 2020 [place] [address] [facility] [address] 15 May, 2020 [place] [address] [facility] [address] 08 May, 2020 [place] [address] [facility] [address] May, [place] [address] [facility] [address] 23 Apr, 2020 [place] [address] [facility] [address] Apr, [place] [address] [facility] [address], [place] [address] [facility] [address] 03 Apr, 2020 [place] [address] [facility] [address] [place], [place] [address] closure of s kin, sequela T81.31XS and Chr onic ulcer of right ankle with fat layer exposed L97.312 [facility] [address], [place] [address] [facility] [address], [place] [address] [facility] [address] 13 Mar, 2020 [place] [address] IMMUNIZATIONS No Known Immunizations SOCIAL HISTORY Never Assessed REASON FOR REFERRAL FUNCTIONAL STATUS PLAN OF CARE Activity Details Future Test COMPMET 20200328 Future Test CBC WITH AUTO DIFF 20200328 Future Test SED RATE 20200328 Future Test CRP-INFLAM 20200328 VITAL SIGNS MEDICATIONS Unknown Medications PROCEDURES No Known procedures RESULTS No Results REASON FOR VISIT W[facility]-Follow Up, [facility]-Follow Up, [facility]-Follow Up, [facility]-Follow Up, Wound [facility]-FollowUp, Wound [facility]-Follow Up, Wound [facility]-Follow Up, Wound CTR- Follow Up, Wound CTR-Follow Up, Wound CTR-Follow Up, Wound CTR-Follow Up, Wound CTR-Follow Up, Wound CTR-Follow Up, Wound CTR-Follow Up, Lab results, Wound CTR- Follow Up, Wound CTR-Follow Up, LABS, Wound CTR-Follow Up, Patient update on wound, Updating and clarifing orders, Wound CTR-NEW Insurance Providers [facility] Patient Patient Patient Patient Patient Subscriber Subscriber Subscriber Group Insurance Plan Plan Plan Plan ID Relationship Address Phone Name Date of ID Name Date of No Type Insurance Insurance Insurance Coverage to Subscriber Address Phone Name Dates LUI'S [address] [place] self ZAC [id number] [address] [place] [id number] S-[employer]ICAID [facility] [id number] S-MEDICAID self ZAC [id number] [facility] [address] [facility] Y [facility] [id number] SELF [address] SELF PAY self ZAC [id number] OTHER [facility] [id number] Y
[2021-08-28 15:00] VITALS: BP 152/72; PULSE 73; RESP 24; TEMP 36.2; O2SAT 91
[2021-08-28 16:55] VITALS: BP 117/66; PULSE 68; RESP 24; TEMP 36.8; O2SAT 94
== END 2021-08-28 12:33 | disposition home or self-care (01) ==
LOC: INF 12:37
PROVIDERS: Visit Provider Family Medicine
DX: U07.1 COVID-19 (principal)
CPT/HCPCS: 96365

== ENCOUNTER 2021-08-29 15:50 | Outpatient (CLI) | payer OTHER, SELFPAY ==
--- NOTE | 2021-08-29 15:45 | RT.EKG_ITS ---
APPROVED REPORT Exam: Resting ECG Reason for Exam: chest discomfort Patient Location: O HR:74 bpm ECG Measurements Heart Rate 74 AXIS WV 187 P 55 QRSd 102 QRS 50 QT 390 T 62 QTc 434 Conclusion Sinus rhythm...normal P axis, V-rate 60- 99 Normal Electrocardiogram
== END 2021-08-29 15:51 | disposition home or self-care (01) ==
LOC: DI.CM 15:50
PROVIDERS: PCP Nurse Practitioner Family; Visit Provider Nurse Practitioner Family
DX: R07.89 Other chest pain (principal)
CPT/HCPCS: 93010

== ENCOUNTER 2021-08-29 17:16 | Outpatient (CLI) | payer OTHER, SELFPAY ==
--- NOTE | 2021-08-29 16:30 | DI.RAD_ITS ---
Exam(s) XR CHEST 2V PA LATERAL EXAM: XR CHEST 2V PA LATERAL CLINICAL HISTORY: r/o pneumonia COVID U07.1 TECHNIQUE: 2D digital imaging was performed of the chest. Two images were obtained. PA and lateral views were obtained. COMPARISON: CR,XR XR PORTABLE CHEST AP from 09/18/2019 FINDINGS: MEDIASTINUM: Normal. HEART: Normal. PULMONARY VASCULATURE: Normal. LUNGS: Clear. PLEURAL SPACE: No pleural effusion or pneumothorax. BONE:Within normal limits for the patient's age. OTHER FINDINGS:Normal. IMPRESSION: No acute pulmonary findings. DATA REPOSITORY: RADIATION DOSE DELIVERED:
--- NOTE | 2021-08-29 17:38 | DI.VRAD_ITS ---
PROCEDURE INFORMATION: Exam: XR Chest Exam date and time: 08/29/2021 5:24 PM Age: 60 years old Clinical indication: Other: R/O pneumia vs covid TECHNIQUE: Imaging protocol: XR of the chest. Views: 2 views. COMPARISON: XR PORTABLE CHEST AP 09/18/2019 10:08 PM FINDINGS: Lungs: No consolidation. Pleural spaces: No sizable pleural effusion. No pneumothorax. Heart/Mediastinum: Cardiomediastinal silhouette is within normal limits. Bones/joints: No acute displaced fracture or dislocation. IMPRESSION: No acute cardiopulmonary process. Dictated and Authenticated by: Henry Harrell MD. Ordering:SHANE Quiñonez MD
== END 2021-08-29 17:36 ==
PROVIDERS: PCP Nurse Practitioner Family; Visit Provider Nurse Practitioner Family
DX: U07.1 COVID-19 (principal)
CPT/HCPCS: 71046

== ENCOUNTER 2021-08-30 09:58 | Emergency (ER) | payer OTHER, SELFPAY ==
[2021-08-30] VITALS (39 sets, daily range): BP systolic 101–136; BP diastolic 51–75; PULSE 57–81; RESP 12–36; TEMP 36.5; O2SAT 90–97
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
--- NOTE | 2021-08-30 10:45 | DI.CT_ITS ---
Exam(s) CT CHEST PE CTA EXAM: CT CHEST PE CTA CLINICAL HISTORY: cough, sob, r/o PE. TECHNIQUE: Imaging Protocol: Axial CT angiography was performed with multi-slice acquisition and mu lti-planar and/or 3D reconstructions. CONTRAST MATERIAL: Intravenous: Omnipaque 350 Contrast volume:125 mL COMPARISON: CT CT THORAX ABD/PEL CTA from 09/18/2019 CR,XR XR CHEST 2V PA LATERAL from 08/29/2021 FINDINGS: Tracheobronchial tree: Patent where visualized. Pulmonary parenchyma: No consolidation or dominant measurable mass. No architectural distortion. Pulmonary Arteries: No evidence of filling defect to suggest pulmonary emboli. Mediastinum and Ariella: No dominant adenopathy or fluid collection. The esophagus is unremarkable. Visualized thyroid gland: Unremarkable. Pleura: No effusion or pneumothorax. Heart: The heart is not dilated. Mild coronary artery calcification is present. No pericardial effus ion. Aorta: Thoracic aorta non-dilated. No evidence of dissection. Upper abdomen: There is a 1.5 x 1.7 cm peripherally calcified enhancing lesion in the splenic hilum isodense to the adjacent splenic artery. The finding is most suggestive of splenic artery aneurysm. Soft tissues: Unremarkable. Bones: Within normal limits for the patient's age. IMPRESSION: 1. No evidence of pulmonary embolism, thoracic aortic dissection or aneurysm. 2. No acute pulmonary process. 3. Stable splenic artery aneurysm. RADIATION DOSE DELIVERED: 575.73mGy.cm Total DLP DATA REPOSITORY: All CT scans at this facility are submitted to the National Radiology Data Registry (NRDR) Dose Index Registry (DIR) with the [employer] (ACR). RADIATION OPTIMIZATION: All CT scans at this facility use at least one of these dose optimization te chniques: automated exposure control; mA and/or kV adjustment per patient size (includes targeted exa ms where dose is matched to clinical indication); or iterative reconstruction.
[2021-08-30 11:03] LABS: Abs Immature Grans 0.01 10^3/uL (0.0-0.06); Absolute Basophil Count 0.01 10^3/uL (0.0-0.2); Absolute Eosinophil Count 0.06 10^3/uL (0.0-0.7); Absolute Monocyte Count 0.43 10^3/uL (0.1-0.8); Absolute Neutrophil Count 0.78 10^3/uL (1.2-6.7); Basophils % 0.3; Eosinophils % 1.7; HGB 13.4 g/dL (11.2-15.7); Immature Grans % 0.3; Lymphocytes % 64.1; MCH 28.3 pg (27.0-33.0); MCHC 30.5 % (32.0-36.0); MCV 92.8 fL (80-95); MPV 10.5 fL (8.0-11.0); Neutrophils % 21.6; Nucleated RBC 0 %; RBC 4.74 10^6/uL (3.93-5.22); RDW 15.1 % (11.7-14.6); RDW-SD 51.9 fL; WBC 3.59 10^3/uL (4.4-10.8)
[2021-08-30] MEDS: Omnipaque 350 MG/ML 50 ML BTL IJ (11:11)
[2021-08-30] MEDS: Omnipaque 350 MG/ML 100 ML BTL IJ (11:11)
[2021-08-30] MEDS: Normal Saline Flush 10 ML SYR IVP (11:13)
--- NOTE | 2021-08-30 11:15 | RT.EKG_ITS ---
APPROVED REPORT Exam: Resting ECG Reason for Exam: chest tightness Patient Location: E HR:61 bpm ECG Measurements Heart Rate 61 AXIS MA 198 P 58 QRSd 104 QRS 51 QT 433 T 55 QTc 438 Conclusion Sinus rhythm...normal P axis, V-rate 60- 99. Sinus. Normal axis. No STEMI. I have reviewed and interpreted ECG and agree with software generated interpretation.
[2021-08-30 11:19] LABS: ALT 30 U/L (14-59); AST 34 U/L (15-37); Albumin 3.5 g/dL (3.4-5.0); Alkaline Phosphatase 88 U/L (46-116); BUN 12 mg/dL (7-18); Bilirubin, Total 0.4 mg/dL (0.2-1.0); CREATININE 0.8 mg/dL (0.55-1.02); Calcium 8.6 mg/dL (8.5-10.1); Chloride 101 mmol/L (98-107); Glucose 92 mg/dL (74-106); Magnesium 1.8 mg/dL (1.8-2.4); Potassium 3.4 mmol/L (3.5-5.1); Sodium 139 mmol/L (136-145); Total Protein 8.5 g/dL (6.4-8.2); Troponin I < 50 ng/L (<or=60)
[2021-08-30 11:22] LABS: Diff Comment Agrees w/ Instrument; Platelet Count 151 10^3/uL (130-400); RBC Morphology Normal
[2021-08-30] MEDS: ACETAMINOPHEN 1,000 MG/100 ML BTL 400 MG IVPB (11:42)
[2021-08-30] MEDS: Normal Saline 1,000 ML 1000 ML IV (11:42)
[2021-08-30] MEDS: methylPREDNISolone SUCC 125 MG VIAL IVP (11:42)
[2021-08-30] MEDS: Albuterol/Ipratropium 3 ML UPD VIAL UPD (11:42)
--- NOTE | 2021-08-30 12:08 | DI.VRAD_ITS ---
PROCEDURE INFORMATION: Exam: CTA Chest With Contrast Exam date and time: 08/30/2021 10:56 AM Age: 60 years old Clinical indication: Cough and shortness of breath; Patient HX: + covid TECHNIQUE: Imaging protocol: Computed tomographic angiography of the chest with contrast. 3D rendering (Not supervised by radiologist): MIP and/or 3D reconstructed images were created by the technologist. Radiation optimization: All CT scans at this facility use at least one of these dose optimization techniques: automated exposure control; mA and/or kV adjustment per patient size (includes targeted exams where dose is matched to clinical indication); or iterative reconstruction. Contrast material: OMNIPAQUE 350; Contrast volume: 125 ml; Contrast route: INTRAVENOUS (IV); COMPARISON: CT THORAX ABD/PEL CTA 09/18/2019 11:20 PM FINDINGS: Pulmonary arteries: Normal. No pulmonary emboli. Aorta: Unremarkable. No aortic aneurysm. No aortic dissection. Lungs: Mosaic attenuation of the lung parenchyma. Pleural spaces: Unremarkable. No pneumothorax. No pleural effusion. Heart: Unremarkable. No cardiomegaly. No pericardial effusion. Lymph nodes: Unremarkable. No enlarged lymph nodes. Bones/joints: Healed fracture deformities of right ribs. No acute or suspicious osseous abnormalities. Mild degenerative changes of the midthoracic spine. Soft tissues: Unremarkable. Other findings: A number of serpiginous collateral vessels in the anterior chest wall. Stable, nonruptured, rim calcified splenic artery aneurysm is again noted, measuring 2 x 1.6 x 2 cm. IMPRESSION: 1. No evidence of pulmonary embolism. 2. Stable 2 cm patent splenic artery aneurysm. Recommend clinical assessment and follow-up. Consider referral for evaluation for endovascular therapy. 3. Mosaic attenuation of the lung parenchyma. This is a nonspecific finding which can be seen in the setting of small airways disease. Dictated and Authenticated by: Bess Wheeler MD. Ordering:COLLEEN Muller MD
[2021-08-30] MEDS: Ketorolac 30 MG/ML VIAL IVP (13:58)
[2021-08-30] MEDS: guaiFENesin/CODEINE PHOSPHATE 10 ML CUP 20 ML PO (14:18)
== END 2021-08-30 14:25 | disposition home or self-care (01) ==
PROVIDERS: Emergency Provider Physician Assistant; PCP Nurse Practitioner Family
DX: U07.1 COVID-19 (principal); R07.89 Other chest pain; R06.02 Shortness of breath
CPT/HCPCS: 36415; 71275; 80053; 93005; 96361; 96365; 96375; 99285; 83735; 84484; 85025; 93010; 99284; J0131; J1885; J2930; J3490; J7620; Q9967

== ENCOUNTER 2021-09-16 01:06 | Outpatient (CLI) | payer OTHER, SELFPAY ==
--- NOTE | 2021-09-16 09:59 | DI.CT_ITS ---
Exam(s) CT ABDOMEN PELVIS CTA EXAM: CT ABDOMEN PELVIS CTA CLINICAL HISTORY: SPLENIC ARTERY ANEURYSM, I72.8, NOTED ON CT OF 09/19/19, ? INTERVAL CHANGE. TECHNIQUE: Imaging Protocol: Axial CT angiography was performed with multi-slice acquisition and m ulti-planar and/or 3D reconstructions. CONTRAST MATERIAL: Intravenous: Omnipaque 350 Contrast volume:100 mL Oral: No COMPARISON: CT CT THORAX ABD/PEL CTA from 09/18/[address] THORACIC LUMBAR SPINE WO from 09/18/[address] CHEST PE CTA from 08/30/2021 FINDINGS: Examination compromised by patient body habitus. ABDOMEN AND PELVIS: Abdomen: Celiac axis/mesenteric arteries: No evidence of occlusion or significant stenosis. There is again see n a 1.5 x 1.8 cm peripherally calcified splenic artery aneurysm in the splenic hilum. Renal Arteries: No evidence of occlusion or significant stenosis. There is a single renal artery perf using each kidney. Aorta: No evidence of occlusion or significant stenosis. No aneurysm or dissection. Pelvis: Iliac Arteries: No evidence of occlusion or significant stenosis. Common Femoral Arteries: No evidence of occlusion or significant stenosis. ABDOMEN: Lung bases: No focal consolidating infiltrates. Liver: Normal density. No measurable mass. Portal, Superior Mesenteric, and Splenic Veins: Unremarkable. Gallbladder and Biliary Tract: No radiodense calculus or dilation. Pancreas: Normal density, no abnormal calcifications or inflammatory process. Spleen: Normal. Adrenals: No masses seen. Kidneys: Normal size, contour and axis. No radiodense stones or obstructive uropathy. No masses seen. Bowel: No obstruction or bowel wall thickening. No evidence of appendicitis. Peritoneal Cavity: No ascites, collection or mesenteric inflammatory response. No free air. Lymph Nodes: There again seen enlarged bilateral inguinal lymph nodes. Unchanged compared to 09/18/19. Bones: The patient has bilateral total hip replacements. Age-appropriate degenerative changes are se en in the spine. Soft Tissues: Unremarkable. PELVIS: Bladder: The urinary bladder is poorly visualized secondary to artifact from the patient's bilateral total hip replacements. Reproductive Organs: Unremarkable as visualized. Portions of the reproductive organs are obscured by artifact from the bilateral total hip replacements. Lymph Nodes: Please see above. Bones: Within normal limits. IMPRESSION: 1. Stable 1.5 x 1.8 cm splenic artery aneurysm. 2. No evidence of aneurysm or dissection of the abdominal aorta. RADIATION DOSE DELIVERED: 957.55mGy.cm Total DLP DATA REPOSITORY: All CT scans at this facility are submitted to the National Radiology Data Registry (NRDR) Dose Index Registry (DIR) with the [employer] (ACR). RADIATION OPTIMIZATION: All CT scans at this facility use at least one of these dose optimization te chniques: automated exposure control; mA and/or kV adjustment per patient size (includes targeted exa ms where dose is matched to clinical indication); or iterative reconstruction.
[2021-09-16] MEDS: Omnipaque 350 MG/ML 100 ML BTL IJ (10:13)
== END 2021-09-16 01:26 ==
PROVIDERS: PCP Nurse Practitioner Family; Visit Provider Internal Medicine Infectious Disease
DX: I72.8 Aneurysm of other specified arteries (principal); R59.0 Localized enlarged lymph nodes; Z96.643 Presence of artificial hip joint, bilateral
CPT/HCPCS: 80048; 74174; 85025; J3490

== ENCOUNTER 2021-11-05 03:02 | Outpatient (CLI) | payer OTHER, SELFPAY ==
[2021-11-05 11:43] LABS: Abs Immature Grans 0.02 10^3/uL (0.0-0.06); Absolute Basophil Count 0.02 10^3/uL (0.0-0.2); Absolute Eosinophil Count 0.07 10^3/uL (0.0-0.7); Absolute Lymphocyte Count 2.57 10^3/uL (1.2-3.4); Absolute Monocyte Count 0.67 10^3/uL (0.1-0.8); Absolute Neutrophil Count 3.06 10^3/uL (1.2-6.7); Basophils % 0.3; Eosinophils % 1.1; HCT 42.3 % (36.0-46.0); HGB 12.8 g/dL (11.2-15.7); Immature Grans % 0.3; Lymphocytes % 40.1; MCH 28.9 pg (27.0-33.0); MCHC 30.3 % (32.0-36.0); MCV 95.5 fL (80-95); MPV 10.4 fL (8.0-11.0); Monocytes % 10.5; Neutrophils % 47.7; Nucleated RBC 0 %; Platelet Count 204 10^3/uL (130-400); RBC 4.43 10^6/uL (3.93-5.22); RDW 14.8 % (11.7-14.6); RDW-SD 52.1 fL; WBC 6.41 10^3/uL (4.4-10.8)
[2021-11-05 13:05] LABS: Anion Gap 3.8 mmol/L (3-11); BUN 26 mg/dL (7-18); CO2 33.2 mmol/L (21.0-32.0); CREATININE 0.7 mg/dL (0.55-1.02); Calcium 8.8 mg/dL (8.5-10.1); Chloride 104 mmol/L (98-107); Glucose 87 mg/dL (74-106); Potassium 4.4 mmol/L (3.5-5.1); Sodium 141 mmol/L (136-145)
[2021-11-06 13:31] LABS: HIV 1 RNA Qualitative Undetected copies/mL (Undetected)
[2021-11-06 13:52] LABS: 4/8 Ratio 0.15 (>=0.90); Absolute CD3 2017 Cells/uL (840-2,669); Absolute CD8 1770 Cells/uL (154-1,097); CD3 73 % (56-84); CD4 10 % (31-64); CD8 64 % (9-39)
== END 2021-11-05 03:03 | disposition home or self-care (01) ==
LOC: LBO 03:02
PROVIDERS: Nurse Practitioner Family; PCP Nurse Practitioner Family; Visit Provider Internal Medicine Infectious Disease
DX: U07.1 COVID-19 (principal); B20 Human immunodeficiency virus [HIV] disease
CPT/HCPCS: 36415; 80048; 87536; 85025; 86359; 86360

== ENCOUNTER 2021-11-12 14:20 | Emergency (ER) | payer OTHER, SELFPAY ==
[2021-11-12 14:21] VITALS: BP 155/90; PULSE 95; RESP 22; TEMP 37.1; O2SAT 95
[2021-11-12 14:38] VITALS: BP 120/63
--- NOTE | 2021-11-12 14:45 | DI.RAD_ITS ---
Exam(s) XR HIP LT COMPLETE AP PELVIS EXAM: XR HIP LT COMPLETE AP PELVIS CLINICAL HISTORY: left si pain. TECHNIQUE: 2D digital imaging was performed. COMPARISON: CR RIGHT HIP COMPLETE from 10/30/2008 FINDINGS: 3 views There are now bilateral hip prostheses including a single cerclage wire associated with the left pros thesis at the trochanteric level. No fractures nor loosening. No obvious radiographic evidence of o steomyelitis. IMPRESSION: DATA REPOSITORY: RADIATION DOSE DELIVERED:
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
[2021-11-12] MEDS: Acetaminophen 325 MG TAB 650 MG PO (15:11)
[2021-11-12] MEDS: Ketorolac 15 MG/ML VIAL IVP (15:12)
[2021-11-12 15:13] LABS: Abs Immature Grans 0.02 10^3/uL (0.0-0.06); Absolute Basophil Count 0.03 10^3/uL (0.0-0.2); Absolute Eosinophil Count 0.11 10^3/uL (0.0-0.7); Absolute Lymphocyte Count 2.15 10^3/uL (1.2-3.4); Absolute Monocyte Count 0.48 10^3/uL (0.1-0.8); Basophils % 0.6; HCT 41.9 % (36.0-46.0); HGB 12.9 g/dL (11.2-15.7); Immature Grans % 0.4; Lymphocytes % 39.9; MCH 28.8 pg (27.0-33.0); MCHC 30.8 % (32.0-36.0); MCV 93.5 fL (80-95); MPV 10.4 fL (8.0-11.0); Monocytes % 8.9; Neutrophils % 48.2; Nucleated RBC 0 %; Platelet Count 186 10^3/uL (130-400); RBC 4.48 10^6/uL (3.93-5.22); RDW 14.4 % (11.7-14.6); RDW-SD 49.6 fL; WBC 5.39 10^3/uL (4.4-10.8)
[2021-11-12 15:17] LABS: Bilirubin Negative (Negative); Blood Trace-intact (Negative); Clarity Clear (Clear); Glucose Negative (Negative); Ketones Negative (Negative); Leukocyte Esterase Negative (Negative); Nitrite Negative (Negative); Specific Gravity >= 1.030 (1.005-1.025); Urobilinogen 0.2 EU/dL (Up TO 0.2)
[2021-11-12 15:27] LABS: ALT 30 U/L (14-59); AST 25 U/L (15-37); Albumin 3.5 g/dL (3.4-5.0); Alkaline Phosphatase 102 U/L (46-116); Anion Gap 8.1 mmol/L (3-11); BUN 26 mg/dL (7-18); Bilirubin, Total 0.4 mg/dL (0.2-1.0); C-Reactive Protein 0.97 mg/dL (0.0-0.3); CO2 30.9 mmol/L (21.0-32.0); CREATININE 1.2 mg/dL (0.55-1.02); Calcium 8.6 mg/dL (8.5-10.1); Chloride 103 mmol/L (98-107); Estimated GFR 45.98 (mL/min/1.73m2); Glucose 115 mg/dL (74-106); Potassium 3.8 mmol/L (3.5-5.1); Sodium 142 mmol/L (136-145); Total Protein 8.2 g/dL (6.4-8.2)
[2021-11-12 15:28] LABS: RBC 0-2 HPF (0-2)
[2021-11-12 15:29] LABS: Bacteria Few HPF (Negative); C & S Indicated? No/Sq. Contamination; Casts Negative LPF (Negative); Crystals Negative HPF (Negative); Epithelial Cells Few HPF (Negative); Mucus Trace (Negative)
[2021-11-12 16:56] VITALS: BP 128/68; PULSE 72; RESP 18; TEMP 36.8; O2SAT 96
[2021-11-12] MEDS: Ondansetron O.D.T. 4 MG TABEF, 3 TABS/BTL PO (17:02)
[2021-11-12] MEDS: Cyclobenzaprine 10 MG TAB, 3 TABS/BTL PO (17:03)
== END 2021-11-12 17:03 | disposition home or self-care (01) ==
PROVIDERS: Physician Assistant; Emergency Provider Physician Assistant; PCP Nurse Practitioner Family
DX: M53.3 Sacrococcygeal disorders, not elsewhere classified (principal); R79.82 Elevated C-reactive protein (CRP)
CPT/HCPCS: 36415; 80053; 96374; 99284; 73502; 81003; 81015; 85025; 86140; 99283; J1885

== ENCOUNTER 2021-11-13 10:49 | Observation (INO) | payer OTHER, SELFPAY ==
[2021-11-13 10:52] VITALS: BP 160/74; PULSE 81; RESP 22; TEMP 36.2; O2SAT 93
--- NOTE | 2021-11-13 11:13 | DI.MRI_ITS ---
Exam(s) MR LUMBAR SPINE WO/W EXAM: MR LUMBAR SPINE WO/W CLINICAL HISTORY: hiv hx, low cd4 count, pain in SI joint and lumbar. TECHNIQUE: Multiplanar multisequence MRI of the Lumbar Spine was performed. CONTRAST MATERIAL: IV Contrast: 20 mL of Dotarem contrast administered. COMPARISON: No exams were available for comparison FINDINGS: Bones: The last intervertebral disc space is designated the L5/S1 level for the numbering purpose of this examination. The vertebral body heights are well maintained. Alignment is satisfactory. The sig nal characteristics are unremarkable. Cord: The conus tip ends at the L1 level. It is of normal size and signal intensity. T12-L1: No disc herniations or bulges are present. No central spinal canal or neural foraminal stenos is. L1-2: No disc herniations or bulges are present. No central spinal canal or neural foraminal stenosis . L2-3: No disc herniations or bulges are present. No central spinal canal or neural foraminal stenosis . L3-4: There is a mild diffuse disc bulge there are hypertrophic changes of the facets and ligamentum flavum. These result in mild narrowing of the central spinal canal. No significant neural foraminal stenosis. L4-5: There is a small left paracentral disc herniation with extrusion posterior to the L4 vertebral body. It does appear to cause left lateral recess stenosis compressing the left L4 nerve root. Ther e is a diffuse disc bulge and degenerative changes of the facets. The findings do cause mild narrowi ng of the central spinal canal. There is mild left neural foraminal stenosis. No significant right neural foraminal stenosis. L5-S1: No disc herniations or bulges are present. No central spinal canal or neural foraminal stenosi s.There are mild degenerative changes of the facets. Soft tissues: The visualized SI joints and sacrum are well maintained. The paraspinal soft tissues ar e unremarkable. There is no evidence of suspicious enhancement. IMPRESSION: 1. No findings to suggest spondylo discitis in the lumbar spine. 2. Normal appearance of the sacroiliac joints. 3. Multilevel degenerative changes in the lumbar spine. Please see the above discussion for complete details. 4. Small left paracentral disc herniation at L4-L5 causing left lateral recess stenosis and compressi ng the left L4 nerve root. 5. Results of this exam have been verbally communicated with provider. DATA REPOSITORY:
[2021-11-13] MEDS: fentaNYL 100 MCG/2 ML VIAL 50 MCG IVP (11:39)
[2021-11-13] MEDS: Orphenadrine 60 MG/2 ML VIAL IVP (11:40)
[2021-11-13] MEDS: Normal Saline Flush 10 ML SYR IVP ×2 (13:02→17:24)
[2021-11-13] MEDS: Gadoterate meglumine 20 ML VIAL IVP (13:03)
[2021-11-13 13:33] LABS: Abs Immature Grans 0.02 10^3/uL (0.0-0.06); Absolute Basophil Count 0.02 10^3/uL (0.0-0.2); Absolute Eosinophil Count 0.07 10^3/uL (0.0-0.7); Absolute Lymphocyte Count 1.96 10^3/uL (1.2-3.4); Absolute Monocyte Count 0.45 10^3/uL (0.1-0.8); Absolute Neutrophil Count 2.37 10^3/uL (1.2-6.7); Basophils % 0.4; Eosinophils % 1.4; HCT 39.9 % (36.0-46.0); HGB 12.5 g/dL (11.2-15.7); Immature Grans % 0.4; Lymphocytes % 40.1; MCH 29.3 pg (27.0-33.0); MCHC 31.3 % (32.0-36.0); MCV 93.7 fL (80-95); MPV 10.2 fL (8.0-11.0); Monocytes % 9.2; Neutrophils % 48.5; Nucleated RBC 0 %; RBC 4.26 10^6/uL (3.93-5.22); RDW 14.4 % (11.7-14.6); RDW-SD 49.6 fL; WBC 4.89 10^3/uL (4.4-10.8)
[2021-11-13] MEDS: MORPHine 4 MG/ML SYR IVP (13:41)
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
[2021-11-13 13:48] LABS: ALT 26 U/L (14-59); AST 23 U/L (15-37); Albumin 3.4 g/dL (3.4-5.0); Alkaline Phosphatase 95 U/L (46-116); Anion Gap 4.8 mmol/L (3-11); BUN 25 mg/dL (7-18); Bilirubin, Total 0.5 mg/dL (0.2-1.0); C-Reactive Protein 0.78 mg/dL (0.0-0.3); CO2 31.2 mmol/L (21.0-32.0); CREATININE 0.7 mg/dL (0.55-1.02); Calcium 8.7 mg/dL (8.5-10.1); Chloride 105 mmol/L (98-107); Glucose 98 mg/dL (74-106); Potassium 3.6 mmol/L (3.5-5.1); Sodium 141 mmol/L (136-145); Total Protein 7.7 g/dL (6.4-8.2)
[2021-11-13 14:20] LABS: Platelet Count 162 10^3/uL (130-400)
[2021-11-13 14:32] LABS: Source Nasal/Nares
[2021-11-13 15:16] LABS: COVID-19 PCR Negative (Negative)
[2021-11-13 15:58] VITALS: BP 135/80; PULSE 74; RESP 19; TEMP 36.5; O2SAT 96
[2021-11-13] MEDS: Acetaminophen 325 MG TAB PO (16:06)
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
[2021-11-13] MEDS: Enoxaparin 60 MG/0.6 ML SYR SC (17:24)
[2021-11-13] MEDS: Ketorolac 15 MG/ML VIAL IVP ×2 (17:24→23:42)
[2021-11-13] MEDS: LORazepam 2 MG/ML VIAL 0.5 MG IVP (18:45)
[2021-11-13] MEDS: HYDROmorphone 2 MG/ML SYR 0.5 MG IVP (18:46)
[2021-11-13 19:15] VITALS: BP 115/75; PULSE 65; RESP 19; TEMP 36.2; O2SAT 93
[2021-11-13] MEDS: Cyclobenzaprine 10 MG TAB PO (19:59)
[2021-11-13] MEDS: Acetaminophen 325 MG TAB 650 MG PO (19:59)
[2021-11-13 23:20] VITALS: BP 117/63; PULSE 66; RESP 19; TEMP 36.2; O2SAT 93
--- NOTE | 2021-11-14 | DI.RAD_ITS ---
Exam(s) XR PORTABLE CHEST AP EXAM: XR PORTABLE CHEST AP CLINICAL HISTORY: productive cough. TECHNIQUE: 2D digital imaging was performed. COMPARISON: CR,XR XR CHEST 2V PA LATERAL from 08/29/2021 FINDINGS: Single AP portable view. Heart size is upper normal. The mediastinum is not widened. Lungs are clear. No infiltrates nor obvious pleural effusions. IMPRESSION: No acute pulmonary findings on this single AP portable view of the chest. DATA REPOSITORY: RADIATION DOSE DELIVERED: All CT scans at this facility use at least one of these dose optimization techniques: automated exposure control; mA and/or kV adjustment per patient size (includes targeted e xams where dose is matched to clinical indication); or iterative reconstruction.
[2021-11-14] MEDS: HYDROmorphone 2 MG/ML SYR 0.5 MG IVP ×4 (01:18→21:07)
[2021-11-14 03:30] VITALS: BP 105/65; PULSE 64; RESP 19; TEMP 36.3; O2SAT 93
[2021-11-14] MEDS: Ketorolac 15 MG/ML VIAL IVP ×3 (05:59→15:50)
[2021-11-14] MEDS: Lidocaine 5% Patch 2 PATCH TP (06:00)
[2021-11-14] MEDS: Enoxaparin 60 MG/0.6 ML SYR SC ×2 (06:00→18:11)
[2021-11-14 06:48] LABS: Platelet Count 166 10^3/uL (130-400)
[2021-11-14 07:29] VITALS: BP 117/83; PULSE 67; RESP 18; TEMP 36.2; O2SAT 93
[2021-11-14] MEDS: Normal Saline Flush 10 ML SYR IVP ×4 (08:55→21:07)
[2021-11-14] MEDS: hydroCHLOROthiazide 25 MG TAB 37.5 MG PO (08:55)
[2021-11-14] MEDS: Aspirin 325 MG TAB PO (08:55)
[2021-11-14] MEDS: Ascorbic Acid 500 MG TAB PO (08:56)
[2021-11-14] MEDS: Cyclobenzaprine 10 MG TAB PO ×3 (08:56→19:23)
[2021-11-14] MEDS: Metoprolol CR 50 MG TABCR PO (08:56)
[2021-11-14] MEDS: Acetaminophen 325 MG TAB 650 MG PO ×4 (08:57→19:21)
[2021-11-14] MEDS: amLODIPine 5 MG TAB PO (08:58)
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
--- NOTE | 2021-11-14 10:45 | NUR.NOTE ---
Nursing Note: Antivirals that patient brought to the pharmacy were administered at 1000. Patient has an aqua k ordered , she wcan not use it untio the pain patch is removed.
--- NOTE | 2021-11-14 10:54 | PT.INIE ---
PT Notes Visit Reasons: Intractable Back Pain,Ambulatory Dysfunction, Physical Therapy Inpatient Initial Evaluation Date: 11/14/21 Referring Doctor: Ivette Rodriguez MD PT Orders: PT CONSULT: Limited Ability Precautions: Fall. Standard. Patient Profile/Admitting Diagnosis: Manasa is a 61 yo female with insidious onset of left gluteal and left lateral hip pain that started 11/12/21. She denies fall or recent activity to aggravate it. Pain increases with standing and walking. Can find positional relief short term. She denies numbness or tingling. No symptoms traveling outside of left lateral hip pain. Not having pain in back. Hips x-rays were unremarkable. Lumbar MRI shows disc bulge at L4/5 causing compression to left L4 nerve root. PMHX: See EMR Social History/Home Situation: Lives in home, has ramp to enter, laundry in basement; otherwise independent at baseline, usually walks with trekking poles in community Equipment Owned/DME: trekking poles, FWW, 4WW, wheelchair Subjective: Cleared by nursing to see patient and patient is agreeable to PT. Patient is sitting up in chair at time of consult. Objective: General Observation: Patient sitting with mild discomfort in chair Mental Status: A&O x3 Pain: 4/10 at rest, 7/10 with activity ROM: Right Upper Extremity: Shoulder Flexion WFL. Shoulder abduction WFL. Elbow flexion WFL. Wrist flexion WFL. Opening and closing of hand WFL. Left Upper Extremity: Shoulder Flexion WFL. Shoulder abduction WFL. Elbow flexion WFL. Wrist flexion WFL. Opening and closing of hand WFL. Right Lower Extremity: Hip flexion WFL. Hip abduction WFL. Knee flexion WFL. Ankle dorsiflexion and plantarflexion limited due to right ankle fusion history. Left Lower Extremity: Hip flexion WFL. Hip abduction WFL. Knee flexion WFL. Ankle dorsiflexion WFL. Ankle plantarflexion WFL. Strength: Right Upper Extremity: Shoulder flexors 5/5. Shoulder abductors 5/5. Elbow flexors 5/5. Elbow extensors 5/5. Button Breaker Operator strong. Left Upper Extremity: Shoulder flexors 5/5. Shoulder abductors 5/5. Elbow flexors 5/5. Elbow extensors 5/5. Button Breaker Operator strong. Right Lower Extremity: Hip flexors 5/5. Hip abductors 5/5. Knee flexors 5/5. Knee extensors 5/5. Ankle dorsiflexors and plantarflexors limited due to right ankle fusion history. Left Lower Extremity: Hip flexors 5/5. Hip abductors 5/5. Knee flexors 5/5. Knee extensors 5/5. Ankle dorsiflexors 5/5. Ankle plantarflexors 5/5. Sensation: Intact as to pain and pressure on bilateral lower extremities. Bed Mobility/Transfers: Sit to stand: Supervision Stand to sit: Supervision Gait: Ambulated several steps in room with FWW, supervision - increased pain with walking Balance: Static Sitting: Normal Dynamic Sitting: Normal Static Standing: Good Dynamic Standing: Fair Special Tests: Mobility Limitations Standardized Measure [facility] 6 clicks Basic Mobility Inpatient Short Form: Raw Score: 14 CMS Score: 61.29% Therapeutic Exercise (18482): 20 minutes This PT instructed patient in clinical findings and correlation of her left L4 nerve root involvement with her symptoms. The location of pain is within the typical L4 dermatome. Symptoms increase with extension or closing tasks and improve with flexion or opening. Informed Consent/Education: Patient instructed in purpose of PT consult and plan of care. Assessment: Patient presents with clinical signs and symptoms consistent with current/admitting diagnoses that have resulted to mobility limitations, gait instability, generalized weakness, and impairment of motor control as demonstrated by the following impairment level findings: 1. Decreased strength to core muscle groups 2. Impaired standing balance 3. Impaired activity tolerance Impairments are contributing to the following functional limitations: 1. Decreased independence with bed mobility skills 2. Increased effort with transfers 3. Inability to safely ambulate without more restrictive assistive device 4. Increase completion time for mobility ADL performance 5. Increased fall risk Patient is assessed as a Low complexity based on the following: History: 61 year old female with impairment level findings, functional limitations, and past medical history as indicated above Examination: Demonstrable impairment in strength, balance, and mobility level with underlying impairments and functional limitations as documented above Presentation: Stable Decision Making: Low complexity Manasa is not at her baseline of functional mobility secondary to pain she is experiencing in left lateral hip. Symptoms increase with lumbar extension or lumbar closing tasks, while getting some relief from flexion and opening of the lumbar region. Her pain is in left lateral hip along the L4 dermatome. This does seem to correlate with L4 nerve pain rather than a muscular contributor. She was given stretching to focus on lumbar flexion in seated. Patient is safe to return home when medically cleared, particularly if pain is better managed. Goals: Goals x1 week 1. Supine-Sit: independent 2. Sit-Supine: independent 3. Sit-Stand: independent 4. Stand-Sit: independent 5. Bed-Chair: independent 6. Chair-Bed: independent 7. Independent gait on level surface with use of least restrictive device for at least 300 feet without report of pain nor dyspnea 8. Independent with home exercise program 9. Good static and dynamic standing balance/tolerance Plan of Care/Treatment Plan: 1-2x/day, 7 days/week x 1 week. Plan of care has been reviewed with the BODY AND FENDER WORKER providing the service under Physical Therapy direction. Initiate Physical Therapy intervention for strengthening, bed mobility, transfers, gait, stairs, balance training, and use of assistive device. Discharge Plan DISCHARGE RECOMMENDATIONS: Home with outpatient PT services TREATMENT CODE/TIME: 10:10-10:55 (45 minutes), [id number], [id number] Thank you for the opportunity to participate in the care of this patient. Rosalba Roberts, PT, DPT, OCS [facility] [place], [place]
[2021-11-14 11:50] VITALS: BP 120/77; PULSE 66; RESP 17; TEMP 36.6; O2SAT 95
--- NOTE | 2021-11-14 15:28 | W.PM.PROGNOT ---
Date of Service Date of service: 11/14/21 Time of Service: 15:28 Assessment and Plan Assessment and plan (1) Herniation of intervertebral disc between L4 and L5: Status: Acute Assessment and plan: Continue scheduled NSAIDs, tylenol, muscle relaxants, heat, lidocaine patch, prn dilaudid and ativan, as well as working with PT. (2) Intractable back pain: Status: Acute Assessment and plan: As above (3) Acute bronchitis: Status: Acute Assessment and plan: start azithromycin given description of the sputum in addition to mucinex, IS/acapella. (4) CHRISTIANA (obstructive sleep apnea): Status: Chronic Assessment and plan: Continue CPAP (5) HIV (human immunodeficiency virus infection): Status: Chronic Assessment and plan: Continue HAART (6) DVT prophylaxis: Status: Acute Assessment and plan: SC enoxaparin (7) Discharge planning issues: Status: Acute Assessment and plan: Full code Anticipate discharge home tomorrow with home health services. Subjective Subjective Interval history since last seen: I just don't want you to think that I am drug seeking. I hate opioids. And I was feeling so good this morning, I thought I would be able to go home and I didn't even want to take the dilaudid, but now my pain is 7/10 and I am afraid to move. Describes cough productive of yellow sputum. I'm at a tail end of a cold. Denies dizziness, chest pain, nausea. In the past, has successfully used azithromycin for respiratory infections without reaction. States leg swelling is normal and she usually uses compression wraps at home. Usually uses CPAP at home, but did not use it last night. She is tearful and apologetic about her anxiety. Exam Narrative Exam Narrative: General: Pleasant anxious and tearful obese female who is very uncomfortable in bed HEENT: EOMI, MMM Heart: RRR, no m/r/g Lungs: CTAB Abdomen: soft, nontender, nondistended Extremities: 3+ BLE edema, appears chronic, with chronic venous stasis dermatitis Objective Last Vital Signs Temp 36.6 C 11/14/21 11:50 Pulse 66 11/14/21 11:50 Resp 17 11/14/21 11:50 BP 120/77 11/14/21 11:50 Pulse Ox 95 11/14/21 11:50 Laboratory Results - last 24 hr 11/13/21 11/14/21 14:19 06:30 Plt Count 166 COVID-19 Source Cancelled SARS-CoV-2 (PCR) Cancelled
[2021-11-14] MEDS: LORazepam 2 MG/ML VIAL 0.5 MG IVP (15:51)
[2021-11-14] MEDS: Azithromycin 250 MG TAB 500 MG PO (15:52)
[2021-11-14] MEDS: guaiFENesin 600 MG TABCR PO ×2 (15:52→19:22)
[2021-11-14 16:00] VITALS: BP 121/70; PULSE 68; RESP 17; TEMP 36.7; O2SAT 93
--- NOTE | 2021-11-14 16:06 | PT.INTREAT ---
Date of service: 11/14/21 Time of Service: 15:28 PT Notes Visit Reasons: Intractable Back Pain,Ambulatory Dysfunction, Inpatient Physical Therapy Treatment Note [facility] Date: 11/14/2021 PRECAUTIONS: WBAT B, Activity as tolerated, back pain SUBJECTIVE: Manasa is pleasant and agreeable to participating in PT. She states that she continues to have pain in her left buttock with walking and extension movements. She would like to go home. OBJECTIVE: Following discussion with nursing, patient is cleared to be independent with in room ambulation and transfers with FWW. PAIN: Patient c/o L-sided buttock pain with gait training and positions that promote back extension BED MOBILITY/TRANSFERS Supine-sit: I Sit-supine: I Sit-stand: I Stand-sit: I Bed-Chair: I Chair-bed: I GAIT Assistive Device: Standard pull-up walker Weight bearing: WBAT Assist: I Distance: 15' + 10' + 5' Deviation: Increased pain in L buttock, trunk anteroflexed THEREX: Patient was instructed in multiple trunk flexion/opening promoting stretches, which she tolerates well. TOILETING: Patient toileted independently ASSESSMENT: Patient tolerated session well with c/o increasing L buttock pain with gait training and positions promoting back extension. She demonstrates independence with in-room ambulation and transfers at this time. PLAN: Continue with stretches for relief of L-sided buttock pain. TREATMENT CODE/TIME: 33 minutes; [id number], [id number] (15:28)
[2021-11-14] MEDS: Lidocaine Patch Removal 2 EACH TD (18:11)
[2021-11-14 19:15] VITALS: BP 104/68; PULSE 74; RESP 17; TEMP 36.7; O2SAT 92
[2021-11-14] MEDS: Ketorolac 15 MG/ML VIAL 30 MG IVP (21:08)
[2021-11-14 23:05] VITALS: BP 123/76; PULSE 75; RESP 17; TEMP 36.7; O2SAT 93
[2021-11-15] MEDS: LORazepam 2 MG/ML VIAL 0.5 MG IVP (01:49)
[2021-11-15] MEDS: Normal Saline Flush 10 ML SYR IVP ×2 (01:50→10:22)
[2021-11-15] MEDS: Ketorolac 15 MG/ML VIAL 30 MG IVP (03:34)
[2021-11-15 03:53] VITALS: BP 155/83; PULSE 75; RESP 20; TEMP 36.4; O2SAT 94
[2021-11-15] MEDS: Lidocaine 5% Patch 2 PATCH TP (05:23)
[2021-11-15] MEDS: Enoxaparin 60 MG/0.6 ML SYR SC (05:23)
[2021-11-15 07:38] LABS: Abs Immature Grans 0.01 10^3/uL (0.0-0.06); Absolute Basophil Count 0.03 10^3/uL (0.0-0.2); Absolute Eosinophil Count 0.08 10^3/uL (0.0-0.7); Absolute Lymphocyte Count 1.91 10^3/uL (1.2-3.4); Absolute Monocyte Count 0.52 10^3/uL (0.1-0.8); Absolute Neutrophil Count 1.32 10^3/uL (1.2-6.7); Basophils % 0.8; Eosinophils % 2.1; HGB 11.3 g/dL (11.2-15.7); Immature Grans % 0.3; Lymphocytes % 49.4; MCH 28.3 pg (27.0-33.0); MCHC 30.5 % (32.0-36.0); MCV 92.5 fL (80-95); MPV 10.9 fL (8.0-11.0); Monocytes % 13.4; Nucleated RBC 0 %; Platelet Count 166 10^3/uL (130-400); RDW 14.4 % (11.7-14.6); RDW-SD 48.8 fL; WBC 3.87 10^3/uL (4.4-10.8)
[2021-11-15 08:11] LABS: Anion Gap 4.9 mmol/L (3-11); BUN 21 mg/dL (7-18); CO2 32.1 mmol/L (21.0-32.0); CREATININE 0.7 mg/dL (0.55-1.02); Calcium 8.4 mg/dL (8.5-10.1); Chloride 104 mmol/L (98-107); Glucose 86 mg/dL (74-106); Magnesium 1.8 mg/dL (1.8-2.4); Potassium 3.7 mmol/L (3.5-5.1); Sodium 141 mmol/L (136-145)
[2021-11-15 10:14] VITALS: BP 136/77; PULSE 78; RESP 20; TEMP 36.9; O2SAT 93
[2021-11-15] MEDS: Aspirin 325 MG TAB PO (10:19)
[2021-11-15] MEDS: Metoprolol CR 50 MG TABCR PO (10:19)
[2021-11-15] MEDS: guaiFENesin 600 MG TABCR PO (10:20)
[2021-11-15] MEDS: Cyclobenzaprine 10 MG TAB PO (10:20)
[2021-11-15] MEDS: Azithromycin 250 MG TAB PO (10:20)
[2021-11-15] MEDS: amLODIPine 5 MG TAB PO (10:20)
[2021-11-15] MEDS: Ascorbic Acid 500 MG TAB PO (10:21)
[2021-11-15] MEDS: Acetaminophen 325 MG TAB 650 MG PO ×2 (10:21→13:27)
[2021-11-15] MEDS: hydroCHLOROthiazide 25 MG TAB 37.5 MG PO (10:28)
[2021-11-15 12:07] VITALS: BP 142/83; PULSE 74; RESP 18; TEMP 36.9; O2SAT 93
--- NOTE | 2021-11-15 12:26 | PT.INTREAT ---
PT Notes Visit Reasons: Intractable Back Pain,Ambulatory Dysfunction, Inpatient Physical Therapy Treatment Note [facility] Date: 11/15/21 SUBJECTIVE: Manasa states that she is ready to go home. She is finding it difficult to be any longer and feels as though she is safe enough to return home. OBJECTIVE: [] PAIN: 09/18 BED MOBILITY/TRANSFERS Rolling L/R: I Supine-sit:I Sit-supine: I Sit-stand: I Stand-sit: I Bed-Chair: I Chair-bed: I GAIT Assistive Device: FWW Weight bearing: WBAT Assist: I in room, S in mills Distance: 200' THEREX: performed seated lumbopelvic stretches as well as some standing extensions. ASSESSMENT: tolerated session very well. Very independent and safe with transfers and mobility. No c/o increased pain with ambulation today. I feel she is safe to return home, She has currently met all goals with exception of ambulation of 300' PLAN: will continue to progress ambulation distance to tolerance following PT POC> TREATMENT CODE/TIME: 30 min [id number], [id number]
[2021-11-15 12:54] VITALS: BP 128/83; PULSE 69; RESP 16; TEMP 36.4; O2SAT 96
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
--- NOTE | 2021-11-15 20:16 | PDOC.CMDIS ---
- If Service Date Differs Date of service: 11/15/21 Time of Service: 20:16 LACE Index Scoring Tool - Questions: Length of Stay (in days): 2 Acuity (Admit via E.D.?): Yes E.D. Visits: 3 - Answers: Total Score: 8 Risk of Readmission: Low Risk Care Management Discharge Reason for Hospitalization: Intractable back pain, ambulatory dysfunction Discharge Plan: Manasa will return home with no new services. Her family will drive her home via private vehicle. She will follow up with her PCP and discharge plan of care. Patient/Family Education Needs: Review discharge instructions and limitations, discussion of self care needs including ask me three.
--- NOTE | 2021-11-17 17:10 | INDS_ITS ---
Date of service: 11/17/21 Time of Service: 17:10 PT Notes Visit Reasons: Intractable Back Pain,Ambulatory Dysfunction, Physical Therapy Inpatient Discharge Summary Date: 11/17/21 Dates of service: 11/14/2021 through 11/15/2021 This is a clinical summary of care provided for the duration of dates listed above. No charge was made in the completion of this documentation. Referring Doctor: Ivette Rodriguez MD PT Orders: PT CONSULT: Limited Ability Precautions: Fall. Standard. Patient Profile/Admitting Diagnosis:?Manasa is a 61 yo female with insidious onset of left gluteal and left lateral hip pain that started 11/12/21. She denies fall or recent activity to aggravate it. Pain increases with standing and walking. Can find positional relief short term. She denies numbness or tingling. No symptoms traveling outside of left lateral hip pain. Not having pain in back. Hips x-rays were unremarkable. Lumbar MRI shows disc bulge at L4/5 causing compression to left L4 nerve root.? PMHX: See EMR Social History/Home Situation: Lives in home, has ramp to enter, laundry in basement; otherwise independent at baseline, usually walks with trekking poles in community Equipment Owned/DME: trekking poles, FWW, 4WW, wheelchair Subjective: NT. See most recent [facility] notes. Objective:? General Observation: NT. See most recent [facility] notes. Mental Status: NT. See most recent [facility] notes. Pain: NT. See most recent [facility] notes. ROM: Right Upper Extremity: Shoulder Flexion WFL. Shoulder abduction WFL. Elbow flexion WFL. Wrist flexion WFL. Opening and closing of hand WFL. Left Upper Extremity: Shoulder Flexion WFL. Shoulder abduction WFL. Elbow flexion WFL. Wrist flexion WFL. Opening and closing of hand WFL. Right Lower Extremity: Hip flexion WFL. Hip abduction WFL. Knee flexion WFL. Ankle dorsiflexion and plantarflexion limited due to right ankle fusion history. Left Lower Extremity: Hip flexion WFL. Hip abduction WFL. Knee flexion WFL. Ankle dorsiflexion WFL. Ankle plantarflexion WFL. Strength: Right Upper Extremity: Shoulder flexors 5/5. Shoulder abductors 5/5. Elbow flexors 5/5. Elbow extensors 5/5. Carpenter Helper Maintenance strong. Left Upper Extremity: Shoulder flexors 5/5. Shoulder abductors 5/5. Elbow flexors 5/5. Elbow extensors 5/5. Carpenter Helper Maintenance strong. Right Lower Extremity: Hip flexors 5/5. Hip abductors 5/5. Knee flexors 5/5. Knee extensors 5/5. Ankle dorsiflexors and plantarflexors limited due to right ankle fusion history. Left Lower Extremity: Hip flexors 5/5. Hip abductors 5/5. Knee flexors 5/5. Knee extensors 5/5. Ankle dorsiflexors 5/5. Ankle plantarflexors 5/5. Sensation:?Intact as to pain and pressure on bilateral lower extremities. Bed Mobility/Transfers: Sit to stand: Independent Stand to sit: Independent Gait:?Ambulated several steps in room with FWW, supervision - increased pain with walking Balance:? Static Sitting: Normal Dynamic Sitting: Normal Static Standing: Good Dynamic Standing: Fair Assessment: Manasa is not at her baseline of functional mobility secondary to pain she is exp eriencing in left lateral hip. Symptoms increase with lumbar extension or lumbar closing tasks, while getting some relief from flexion and opening of the lumbar region. Her pain is in left lateral hip along the L4 dermatome. This does seem to correlate with L4 nerve pain rather than a muscular contributor. She was given stretching to focus on lumbar flexion in seated. Patient is safe to return home when medically cleared, particularly if pain is better managed. Patient presents with clinical signs and symptoms consistent with current/admitting diagnoses that have resulted to mobility limitations, gait instability, generalized weakness, and impairment of motor control as demonstrated by the following impairment level findings: 1. Decreased strength to core muscle groups 2. Impaired standing balance 3. Impaired activity tolerance Impairments are contributing to the following functional limitations: 1. Decreased independence with bed mobility skills 2. Increased effort with transfers 3. Inability to safely ambulate without more restrictive assistive device 4. Increase completion time for mobility ADL performance 5. Increased fall risk Patient is assessed as a Low complexity based on the following: History: 61 year old female with impairment level findings, functional limitations, and past medical history as indicated above Examination: Demonstrable impairment in strength, balance, and mobility level with underlying impairments and functional limitations as documented above Presentation: Stable Decision Making: Low complexity Goals: Goals x1 week 1. Supine-Sit: independent MET 2. Sit-Supine: independent MET 3. Sit-Stand: independent MET 4. Stand-Sit: independent MET 5. Bed-Chair: independent MET 6. Chair-Bed: independent MET 7. Independent gait on level surface with use of least restrictive device for at least 300 feet without report of pain nor dyspnea NOT MET 8. Independent with home exercise program NOT MET 9. Good static and dynamic standing balance/tolerance NOT MET Discharge Plan DISCHARGE RECOMMENDATIONS: Home with outpatient PT services TREATMENT CODE/TIME:AK Thank you for the opportunity to participate in the care of this patient. Tali Bond PT, DPT, CLT [facility] [place], [place]
== END 2021-11-15 14:51 | disposition home or self-care (01) ==
LOC: ER 14:38 → MS 15:43
PROVIDERS: Admitting Provider Internal Medicine; Emergency Provider Physician Assistant; PCP Nurse Practitioner Family; Visit Provider Internal Medicine
DX: M51.16 Intervertebral disc disorders with radiculopathy, lumbar region (principal); M54.59 Other low back pain; Z20.822 Contact with and (suspected) exposure to COVID-19; I10 Essential (primary) hypertension; G47.33 Obstructive sleep apnea (adult) (pediatric); B20 Human immunodeficiency virus [HIV] disease; F41.1 Generalized anxiety disorder; F32.A Depression, unspecified; R26.2 Difficulty in walking, not elsewhere classified; E66.01 Morbid (severe) obesity due to excess calories; Z68.43 Body mass index [BMI] 50.0-59.9, adult; J45.20 Mild intermittent asthma, uncomplicated; J20.9 Acute bronchitis, unspecified; R60.0 Localized edema
CPT/HCPCS: 36415; 72158; 80048; 80053; 87635; 96372; 96374; 96375; 96376; 97110; 97161; 97530; 99285; J2360; 71045; 83735; 85025; 85049; 86140; 99220; 99226; 99239; G0378; J1170; J1650; J1885; J2060; J2270; J3010; J3490

== ENCOUNTER 2022-01-15 22:50 | Outpatient (REF) | payer OTHER, SELFPAY | END 2022-01-15 22:51 | disposition home or self-care (01) | LOC: LBN 22:50 | PROVIDERS: PCP Nurse Practitioner Family; Visit Provider Physician Assistant | DX: N39.0 Urinary tract infection, site not specified (principal) | CPT/HCPCS: 87086 ==

== ENCOUNTER 2022-02-03 12:07 | Outpatient (CLI) | payer OTHER, SELFPAY ==
[2022-02-05 14:34] LABS: HIV 1 RNA Qualitative Undetected copies/mL (Undetected)
== END 2022-02-03 12:08 | disposition home or self-care (01) ==
LOC: LBO 12:11
PROVIDERS: PCP Nurse Practitioner Family; Visit Provider Internal Medicine Infectious Disease
DX: B20 Human immunodeficiency virus [HIV] disease (principal)
CPT/HCPCS: 36415; 87536

== ENCOUNTER 2022-04-27 03:50 | Emergency (ER) | payer OTHER, SELFPAY ==
[2022-04-27 03:54] VITALS: BP 180/86; PULSE 95; RESP 18; TEMP 36.9; O2SAT 91
[2022-04-27 04:02] VITALS: RESP 22
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
[2022-04-27] MEDS: Doxycycline Hyclate 100 MG CAP PO (04:18)
== END 2022-04-27 04:23 | disposition home or self-care (01) ==
PROVIDERS: Emergency Provider Emergency Medicine; PCP Nurse Practitioner Family
DX: S81.801D Unspecified open wound, right lower leg, subsequent encounter (principal); B20 Human immunodeficiency virus [HIV] disease; Z79.899 Other long term (current) drug therapy; V89.2XXD Person injured in unspecified motor-vehicle accident, traffic, subsequent encounter
CPT/HCPCS: 99283; 99284

== ENCOUNTER 2022-06-29 21:34 | Emergency (ER) | payer OTHER, SELFPAY ==
[2022-06-29 21:37] VITALS: BP 184/77; PULSE 88; RESP 23; TEMP 36.8; O2SAT 94
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
--- NOTE | 2022-06-29 22:15 | DI.CT_ITS ---
Exam(s) CT LUMBAR SPINE WO EXAM: CT LUMBAR SPINE WO CLINICAL HISTORY: L hip pain, L thigh numbness, r/o disc herniation. TECHNIQUE: Imaging Protocol: Axial computed tomography images with coronal and sagittal reformatted images were created and reviewed COMPARISON: CT CT THORACIC LUMBAR SPINE WO from 09/18/2019 MR MR LUMBAR SPINE WO/W from 11/13/2021 FINDINGS: Bones: The last intervertebral disc space is designated the L5/S1 level for the numbering purpose of this examination. There are endplate osteophytes at multiple levels of the lumbar spine. The disc h eights are well maintained. Alignment is satisfactory. No fracture is seen. T12-L1: No disc herniations or bulges are present. No central spinal canal or neural foraminal steno sis. L1-2: No disc herniations or bulges are present. No central spinal canal or neural foraminal stenosi s. L2-3: No disc herniations or bulges are present. No central spinal canal or neural foraminal stenosi s. L3-4: There is a mild diffuse disc bulge. There are degenerative changes of the facets. There is r esultant mild narrowing of the central spinal canal. There is also mild bilateral neural foraminal s tenosis. L4-5: There is a diffuse disc bulge. There are degenerative changes of the facets. There is mild n arrowing of the central spinal canal. Mild to moderate left neural foraminal stenosis is seen. No s ignificant right neural foraminal stenosis is present. L5-S1: No disc herniations or bulges are present. No central spinal canal or neural foraminal stenos is. There are degenerative changes of the facets. Soft Tissues: The visualized SI joints and sacrum are will maintained. The paraspinal soft tissues a re unremarkable. There does appear to be 1.8 x 2 cm peripherally calcified splenic artery aneurysm. IMPRESSION: 1. Degenerative changes in the lumbar spine as described resulting in central spinal canal and neural foraminal stenosis at L3-4 and L4-L5. 2. Peripherally calcified 1.8 x 2 cm probable splenic artery aneurysm. RADIATION DOSE DELIVERED: Total DLP Total DLP DATA REPOSITORY: All CT scans at this facility are submitted to the National Radiology Data Registry (NRDR) Dose Index Registry (DIR) with the [employer] (ACR). RADIATION OPTIMIZATION: All CT scans at this facility use at least one of these dose optimization te chniques: automated exposure control; mA and/or kV adjustment per patient size (includes targeted exa ms where dose is matched to clinical indication); or iterative reconstruction.
[2022-06-29] MEDS: predniSONE 20 MG TAB 60 MG PO (22:40)
[2022-06-29] MEDS: Ketorolac 60 MG/2 ML VIAL IM (22:42)
--- NOTE | 2022-06-29 23:00 | DI.CT_ITS ---
Exam(s) CT PELVIC WO EXAM: CT PELVIC WO CLINICAL HISTORY: L hip pain, r/o fracture, assess hardware. TECHNIQUE: Imaging Protocol: Axial computed tomography images with coronal and sagittal reformatted images were created and reviewed. COMPARISON: CT CT THORACIC LUMBAR SPINE WO from 09/18/[address] THORAX ABD/PEL CTA from 09/18/[address] CHEST PE CTA from 08/30/[address] ABDOMEN PELVIS CTA from 09/16/2021 CR XR HIP LT COMPLETE AP PELVIS from 11/12/2021 FINDINGS: Examination is limited due to a hardware artifact from the patient's bilateral total hip replacements . Bones: The osseous structures and articular surfaces are intact. The patient has bilateral total hi p arthroplasties. Bony alignment is satisfactory. No cellulitic or osteomyelitic changes are identi fied. No lytic or sclerotic lesions are identified. Soft Tissues: Note is made of diverticulosis in the sigmoid colon. There is a 5.3 x 2.3 cm ovoid sof t tissue mass in the right inguinal region. The acuity of this finding is uncertain. This area was not definitely included on prior examinations. IMPRESSION: 1. Examination limited by artifact from the bilateral total hip replacements. 2. No definite acute fracture or dislocation. 3. 5.3 x 2.3 cm ovoid soft tissue mass in the right inguinal region. This area was not imaged on moises or examinations although a small portion may be visualized on the CT scan from 09/16/2021. This may re present an enlarged lymph node. Ultrasound may be considered for further evaluation. 4. Colonic diverticula. No evidence of acute diverticulitis. RADIATION DOSE DELIVERED: Total DLP Total DLP DATA REPOSITORY: All CT scans at this facility are submitted to the National Radiology Data Registry (NRDR) Dose Index Registry (DIR) with the [employer] (ACR). RADIATION OPTIMIZATION: All CT scans at this facility use at least one of these dose optimization te chniques: automated exposure control; mA and/or kV adjustment per patient size (includes targeted exa ms where dose is matched to clinical indication); or iterative reconstruction.
--- NOTE | 2022-06-29 23:40 | DI.VRAD_ITS ---
PROCEDURE INFORMATION: Exam: CT Pelvis Without Contrast; Skeletal Exam date and time: 06/29/2022 11:03 PM Age: 61 years old Clinical indication: Other: L hip pain, R/O fracture, assess hardware TECHNIQUE: Imaging protocol: Computed tomography of the pelvis without contrast. Exam focused on the skeleton. Radiation optimization: All CT scans at this facility use at least one of these dose optimization techniques: automated exposure control; mA and/or kV adjustment per patient size (includes targeted exams where dose is matched to clinical indication); or iterative reconstruction. COMPARISON: CT ABDOMEN PELVIS CTA 09/16/2021 9:44 AM FINDINGS: Stomach and bowel: Colonic diverticula. Bones/joints: Bilateral hip prostheses with intact hardware. No acute fracture. Soft tissues: Unremarkable. IMPRESSION: No acute finding. Dictated and Authenticated by: Ryder Garcia MD. Ordering:COLLEEN Muller MD
--- NOTE | 2022-06-29 23:53 | NUR.NOTE ---
Nursing Note: Pt ambulated with steady gait to restroom. Pt states pain is still there in the leg but isn't as bad as when she got here.
--- NOTE | 2022-06-29 23:54 | DI.VRAD_ITS ---
PROCEDURE INFORMATION: Exam: CT Lumbar Spine Without Contrast Exam date and time: 06/29/2022 10:56 PM Age: 61 years old Clinical indication: L hip pain, lt thigh numbness, R/O disc herniation TECHNIQUE: Imaging protocol: Computed tomography of the lumbar spine without contrast. Radiation optimization: All CT scans at this facility use at least one of these dose optimization techniques: automated exposure control; mA and/or kV adjustment per patient size (includes targeted exams where dose is matched to clinical indication); or iterative reconstruction. COMPARISON: MR LUMBAR SPINE WO/W 11/13/2021 12:02 PM FINDINGS: Bones/joints: No acute fracture. Normal alignment. Spinal canal stenosis noted at L3-L4 and L4-L5. No severe spinal canal stenosis. Vasculature: There is a round 2 cm peripherally calcified structure in the region of the splenic vasculature, possibly a splenic artery aneurysm. Soft tissues: Unremarkable. IMPRESSION: 1. No acute fracture. 2. Degenerative changes most prominent at L3-L4 and L4-L5 with spinal canal stenosis. 3. Possible splenic artery aneurysm. Correlate with prior clinical history. Dictated and Authenticated by: Yumi Guerrero MD. Ordering:COLLEEN Muller MD
[2022-06-30 00:51] VITALS: BP 149/77; PULSE 90; RESP 22; O2SAT 97
== END 2022-06-30 00:33 | disposition home or self-care (01) ==
PROVIDERS: Emergency Provider Emergency Medicine; PCP Nurse Practitioner Family
DX: S76.012A Strain of muscle, fascia and tendon of left hip, initial encounter (principal); X50.1XXA Overexertion from prolonged static or awkward postures, initial encounter; I10 Essential (primary) hypertension; R20.0 Anesthesia of skin; Z96.643 Presence of artificial hip joint, bilateral
CPT/HCPCS: 96372; 99284; 72131; 72192; 99283; J1885; J7512

== ENCOUNTER 2022-09-08 01:50 | Outpatient (CLI) | payer OTHER, SELFPAY ==
--- NOTE | 2022-09-08 12:00 | DI.MAMMO_ITS ---
Exam(s) MAMMO SCREENING EXAM: MAMMO SCREENING CLINICAL HISTORY: screening TECHNIQUE: Mammograms were interpreted according to the usual protocol including computer analysis w [employer] CAD system, tomosynthesis and C-view imaging. COMPARISON: 2015 through 2020 FINDINGS: The breasts are composed of mainly fatty density , Breast Density category A. No suspicious masses or suspicious microcalcifications are seen. No skin thickening or abnormal axillary lymph nodes are seen. There has been no significant change from prior exams. IMPRESSION: BI-RADS Category 1, Negative mammogram Yearly screening mammography is recommended. Breast Density - Category A, fatty density. A negative radiographic report should not delay biopsy if a dominant or clinically suspicious mass is present. Up to ten percent of cancers are not identified on mammography. A negative report may reinforce clinical impression. Adenosis and dense breasts may obscure an underlying neoplasm. False positive reports average 6 to 10%. Patient will receive a letter notifying them of these results.
== END 2022-09-08 02:10 ==
PROVIDERS: PCP Nurse Practitioner Family; Visit Provider Obstetrics & Gynecology
DX: Z12.31 Encounter for screening mammogram for malignant neoplasm of breast (principal)
CPT/HCPCS: 77063; 77067

== ENCOUNTER 2022-09-08 03:17 | Outpatient (CLI) | payer OTHER, SELFPAY ==
[2022-09-08 12:25] LABS: Abs Immature Grans 0.02 10^3/uL (0.0-0.06); Absolute Basophil Count 0.01 10^3/uL (0.0-0.2); Absolute Eosinophil Count 0.05 10^3/uL (0.0-0.7); Absolute Lymphocyte Count 2.23 10^3/uL (1.2-3.4); Absolute Monocyte Count 0.69 10^3/uL (0.1-0.8); Absolute Neutrophil Count 3.15 10^3/uL (1.2-6.7); Basophils % 0.2; Eosinophils % 0.8; HGB 12.8 g/dL (11.2-15.7); Immature Grans % 0.3; Lymphocytes % 36.3; MCH 27.6 pg (27.0-33.0); MCHC 30.5 % (32.0-36.0); MCV 91 fL (80-95); MPV 10.1 fL (8.0-11.0); Monocytes % 11.2; Neutrophils % 51.2; Platelet Count 191 10^3/uL (130-400); RBC 4.64 10^6/uL (3.93-5.22); RDW 14.6 % (11.7-14.6); RDW-SD 48.5 fL; WBC 6.15 10^3/uL (4.4-10.8)
[2022-09-08 12:48] LABS: ALT 28 U/L (14-59); AST 27 U/L (15-37); Albumin 3.4 g/dL (3.4-5.0); Alkaline Phosphatase 95 U/L (46-116); Anion Gap 7.3 mmol/L (3-11); BUN 20 mg/dL (7-18); Bilirubin, Total 0.5 mg/dL (0.2-1.0); CO2 29.7 mmol/L (21.0-32.0); CREATININE 0.9 mg/dL (0.55-1.02); Calcium 9.1 mg/dL (8.5-10.1); Chloride 104 mmol/L (98-107); Estimated GFR 73.64 (mL/min/1.73m2); Glucose 101 mg/dL (74-106); Potassium 3.7 mmol/L (3.5-5.1); Sodium 141 mmol/L (136-145)
[2022-09-09 15:53] LABS: 4/8 Ratio 0.14 (>=0.90); Absolute CD3 2024 Cells/uL (840-2669); Absolute CD8 1781 Cells/uL (154-1097); CD3 75 % (56-84); CD4 9 % (31-64); CD8 66 % (9-39)
[2022-09-10 14:21] LABS: HIV 1 RNA Qualitative Detected copies/mL (Undetected); HIV 1 RNA Quantitative 902 copies/mL (Undetected)
== END 2022-09-08 03:18 | disposition home or self-care (01) ==
LOC: LBO 03:17
PROVIDERS: PCP Nurse Practitioner Family; Visit Provider Internal Medicine Infectious Disease
DX: B20 Human immunodeficiency virus [HIV] disease (principal)
CPT/HCPCS: 36415; 80053; 87536; 85025; 86359; 86360

== ENCOUNTER 2022-11-06 02:06 | Outpatient (CLI) | payer OTHER, SELFPAY ==
[2022-11-09 13:36] LABS: HIV 1 RNA Qualitative Undetected copies/mL (Undetected)
== END 2022-11-06 02:07 | disposition home or self-care (01) ==
LOC: LBO 02:07
PROVIDERS: PCP Nurse Practitioner Family; Visit Provider Internal Medicine Infectious Disease
DX: B20 Human immunodeficiency virus [HIV] disease (principal)
CPT/HCPCS: 36415; 87536

== ENCOUNTER 2023-02-19 14:14 | Outpatient (CLI) | payer OTHER, SELFPAY ==
--- NOTE | 2023-02-19 13:52 | DI.RAD_ITS ---
Exam(s) XR CHEST 2V PA LATERAL EXAM: XR CHEST 2V PA LATERAL CLINICAL HISTORY: cough r/o pneumonia, R05.9. TECHNIQUE: 2D digital imaging was performed. COMPARISON: CR XR PORTABLE CHEST AP from 11/14/2021 FINDINGS: 2 views: Heart size is upper normal. The mediastinum is not widened. Mild increased markings in both lungs but without Chanel B lines. No airspace pulmonary edema. No p leural effusions. Subtle increased density in the right infrahilar region more evident than on prior studies. This measures approximately 2 x 1.5 cm. No pleural effusions. IMPRESSION: Possible subtle nodular infiltrate right infrahilar region. Close follow-up recommended. DATA REPOSITORY: RADIATION DOSE DELIVERED:
== END 2023-02-19 14:34 ==
LOC: DI 14:14
PROVIDERS: PCP Nurse Practitioner Family; Visit Provider Physician Assistant
DX: R05.9 Cough, unspecified (principal); R92.8 Other abnormal and inconclusive findings on diagnostic imaging of breast
CPT/HCPCS: 71046

== ENCOUNTER 2023-08-07 20:11 | Observation (INO) | payer OTHER, SELFPAY ==
[2023-08-07] VITALS (73 sets, daily range): BP systolic 123–190; BP diastolic 50–85; PULSE 80–117; RESP 5–35; TEMP 37.2–39.5; O2SAT 85–94
--- NOTE | 2023-08-07 20:15 | RT.EKG_ITS ---
APPROVED REPORT Exam: Resting ECG Reason for Exam: SOB/Tachy Patient Location: E HR:99 bpm ECG Measurements Heart Rate 99 AXIS PA 151 P 33 QRSd 107 QRS 69 QT 343 T 42 QTc 440 Conclusion Sinus rhythm normal axis non specific ST chnages
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
[2023-08-07 20:48] LABS: BE (Venous) 8 mmol/L (-2-3); HCO3 (Venous) 33 mmol/L (23-28); O2 Sat (Venous) 76 %; TCO2 (Venous) 30 mmol/L (24-29); pCO2 (Venous) 59 mmHg (41-51); pH (Venous) 7.36 (7.31-7.41); pO2 (Venous) 41 mmHg
[2023-08-07 20:49] LABS: Abs Immature Grans 0.03 10^3/uL (0.0-0.06); Absolute Basophil Count 0.01 10^3/uL (0.0-0.2); Absolute Eosinophil Count 0.01 10^3/uL (0.0-0.7); Absolute Lymphocyte Count 1.01 10^3/uL (1.2-3.4); Absolute Monocyte Count 0.52 10^3/uL (0.1-0.8); Absolute Neutrophil Count 4.42 10^3/uL (1.2-6.7); Basophils % 0.2; Eosinophils % 0.2; HCT 43.7 % (36.0-46.0); HGB 13.5 g/dL (11.2-15.7); Immature Grans % 0.5; Lymphocytes % 16.8; MCH 27.8 pg (27.0-33.0); MCHC 30.9 % (32.0-36.0); MCV 90 fL (80-95); MPV 10.5 fL (8.0-11.0); Monocytes % 8.7; Neutrophils % 73.6; Platelet Count 181 10^3/uL (130-400); RBC 4.85 10^6/uL (3.93-5.22); RDW 15.6 % (11.7-14.6); RDW-SD 51.5 fL
[2023-08-07 20:54] LABS: Lactate 1.2 mmol/L (0.6-1.4)
--- NOTE | 2023-08-07 21:06 | DI.RAD_ITS ---
Exam(s) XR PORTABLE CHEST AP EXAM: XR PORTABLE CHEST AP CLINICAL HISTORY: SOB, Hypoxia TECHNIQUE: 2D digital imaging was performed. COMPARISON: CR XR CHEST 2V PA LATERAL from 02/19/2023 FINDINGS: Exam is limited by under penetration and leads overlying the chest. LUNGS: Grossly clear. No pleural abnormality seen. HEART: Enlarged. AORTA: Normal diameter. BONES: Unremarkable for age. Soft tissues: Unremarkable. IMPRESSION: Limited exam. No acute findings. DATA REPOSITORY: RADIATION DOSE DELIVERED:
[2023-08-07 21:17] LABS: ALT 22 U/L (14-59); AST 24 U/L (15-37); Albumin 3.5 g/dL (3.4-5.0); Alkaline Phosphatase 85 U/L (46-116); Anion Gap 8.1 mmol/L (3-11); BUN 13 mg/dL (7-18); Bilirubin, Total 0.5 mg/dL (0.2-1.0); CO2 31.9 mmol/L (21.0-32.0); CREATININE 0.9 mg/dL (0.55-1.02); Calcium 8.7 mg/dL (8.5-10.1); Chloride 98 mmol/L (98-107); Estimated GFR 73.19 (mL/min/1.73m2); Glucose 114 mg/dL (74-106); Magnesium 1.6 mg/dL (1.8-2.4); NT-proBNP 348 pg/mL (<300); Potassium 4.1 mmol/L (3.5-5.1); Sodium 138 mmol/L (136-145); Total Protein 8.7 g/dL (6.4-8.2); Troponin I < 50 ng/L (<or=60)
[2023-08-07] MEDS: ACETAMINOPHEN 1,000 MG/100 ML BTL 400 MG IVPB (21:20)
[2023-08-07 21:25] LABS: COVID-19 PCR Negative (Negative); Influenza A PCR Positive (Negative); Influenza B PCR Negative (Negative); RSV PCR Negative (Negative)
[2023-08-07 21:27] LABS: Source Nasopharynx
--- NOTE | 2023-08-07 21:45 | DI.CT_ITS ---
Exam(s) CT CHEST PE CTA EXAM: CT CHEST PE CTA CLINICAL HISTORY: Elevated Dimer, SOB, Hemoptosis. TECHNIQUE: Imaging Protocol: Axial CT angiography was performed with multi-slice acquisition and mu lti-planar reconstructions as well as axial, coronal and sagittal MIP reconstructions. CONTRAST MATERIAL: Intravenous: Omnipaque 350 Contrast volume:100 ml COMPARISON: CT CT CHEST PE CTA from 08/30/[address] P[facility] WO from 06/29/2022 CR,XR XR PORTABLE CHEST AP from 08/07/2023 FINDINGS: Pulmonary Arteries: No evidence of filling defect to suggest pulmonary emboli. Tracheobronchial tree: Patent where visualized. Mediastinum and Ariella: No dominant adenopathy or fluid collection. Pulmonary parenchyma: Mildly limited by respiratory motion. No consolidation or dominant measurable mass. Pleura: No effusion or pneumothorax. Heart: The heart is not dilated. No coronary artery calcifications are seen. Aorta: Thoracic aorta non-dilated. No aneurysm. No dissection. Upper abdomen: Fatty liver. Splenic artery aneurysm again noted. Bones: Unremarkable for age. Tubes, Catheters, and Lines: None Soft tissues: Varices in the subcutaneous fat of the anterior abdominal wall. IMPRESSION: No evidence of pulmonary embolism. No acute abnormality. RADIATION DOSE DELIVERED: Total DLP DATA REPOSITORY: All CT scans at this facility are submitted to the National Radiology Data Registry (NRDR) Dose Index Registry (DIR) with the [employer] (ACR). RADIATION OPTIMIZATION: All CT scans at this facility use at least one of these dose optimization te chniques: automated exposure control; mA and/or kV adjustment per patient size (includes targeted exa ms where dose is matched to clinical indication); or iterative reconstruction.
[2023-08-07 21:51] LABS: D-Dimer 2257 ng/mlFEU (<500)
[2023-08-07] MEDS: methylPREDNISolone SUCC 125 MG VIAL IVP (22:10)
[2023-08-07] MEDS: Albuterol/Ipratropium 3 ML UPD VIAL UPD (22:10)
--- NOTE | 2023-08-07 22:28 | DI.VRAD_ITS ---
PROCEDURE INFORMATION: Exam: XR Chest Exam date and time: 08/07/2023 8:59 PM Age: 62 years old Clinical indication: Other: SOB, hypoxia TECHNIQUE: Imaging protocol: Radiologic exam of the chest. Views: 1 view. COMPARISON: CR XR CHEST 2V PA LATERAL 02/19/2023 1:42 PM FINDINGS: Lungs: Unremarkable. No consolidation. Pleural spaces: Unremarkable. No pleural effusion. No pneumothorax. Heart/Mediastinum: Unremarkable. No cardiomegaly. Bones/joints: Degenerative changes. IMPRESSION: No acute findings. Dictated and Authenticated by: Roberto Brown MD. Ordering:SANDHYA Estrada MD
[2023-08-07] MEDS: Omnipaque 350 MG/ML 100 ML BTL IJ (22:29)
[2023-08-07] MEDS: Normal Saline - Diluent 50 ML VIAL IJ (22:30)
--- NOTE | 2023-08-07 22:43 | DI.VRAD_ITS ---
PROCEDURE INFORMATION: Exam: CTA Chest With Contrast Exam date and time: 08/07/2023 10:12 PM Age: 62 years old Clinical indication: Shortness of breath and other: Elevated d dimer TECHNIQUE: Imaging protocol: Computed tomographic angiography of the chest with contrast. Exam focused on the arteries. 3D rendering (Not supervised by radiologist): MIP and/or 3D reconstructed images were created by the technologist. Contrast material: OMNIPAQUE 350; Contrast volume: 100 ml; Contrast route: INTRAVENOUS (IV); COMPARISON: CT CHEST PE CTA 08/30/2021 11:08 AM FINDINGS: Pulmonary arteries: Main pulmonary artery normal in caliber. No pulmonary artery filling defects. Aorta: No aortic aneurysm or dissection. Celiac trunk and mesenteric arteries: Rim calcified 17 mm distal splenic artery aneurysm, unchanged. Veins: Subcutaneous venous varicosities. Lungs: No dense parenchymal consolidation. Pleural spaces: No pneumothorax or pleural effusion. Heart: Heart normal in size. Heart RV/LV ratio: 1.0. Coronary arteries: No coronary artery calcification. Lymph nodes: No adenopathy. Liver: There is diffuse decrease in hepatic parenchymal density, consistent with mild fatty infiltration. Bones/joints: The spine demonstrates moderate degenerative changes at multiple levels. Soft tissues: Unremarkable. IMPRESSION: 1. No pulmonary artery embolism demonstrated. 2. 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 Consider referral for endovascular treatment. Dictated and Authenticated by: Roberto Brown MD. Ordering:SANDHYA Estrada MD
[2023-08-07 23:15] LABS: BE 6 mmol/L (-2-3); HCO3 30 mmol/L (22-26); pCO2 49 mmHg (35-45); pO2 65 mmHg (80-105); sO2 94 % (95-98); tCO2 28 mmol/L (23-27)
[2023-08-07 23:18] LABS: FIO2 87 %; Site Left Radial
[2023-08-07 23:51] LABS: Troponin I < 50 ng/L (<or=60)
[2023-08-07] MEDS: Ibuprofen 600 MG TAB PO (23:58)
[2023-08-08] VITALS (14 sets, daily range): BP systolic 133–138; BP diastolic 78–86; PULSE 70–84; RESP 14–29; TEMP 36–37.2; O2SAT 85–94
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
[2023-08-08 06:42] LABS: HCT 44.4 % (36.0-46.0); HGB 13.6 g/dL (11.2-15.7); MCH 27.5 pg (27.0-33.0); MCHC 30.6 % (32.0-36.0); MCV 90 fL (80-95); MPV 10.5 fL (8.0-11.0); Platelet Count 177 10^3/uL (130-400); RBC 4.95 10^6/uL (3.93-5.22); RDW 15.5 % (11.7-14.6); RDW-SD 51.3 fL; WBC 4.03 10^3/uL (4.4-10.8)
--- NOTE | 2023-08-08 08:24 | RESPIRATORY ---
Spoke with patient about her CHRISTIANA diagnosis and she advised she had her machine in her bag. Pt has [employer] AirSense 10 Auto Max 18, Min 8 DME: [facility]
[2023-08-08] MEDS: Enoxaparin 40 MG/0.4 ML SYR SC (08:57)
[2023-08-08] MEDS: amLODIPine 5 MG TAB PO (08:58)
[2023-08-08] MEDS: hydroCHLOROthiazide 25 MG TAB 37.5 MG PO (08:58)
[2023-08-08] MEDS: Metoprolol CR 50 MG TABCR PO (08:59)
[2023-08-08] MEDS: Oseltamivir 75 MG CAP PO (08:59)
[2023-08-08] MEDS: Normal Saline Flush 10 ML SYR IVP (08:59)
[2023-08-08] MEDS: Acetaminophen 325 MG TAB 650 MG PO ×2 (08:59→12:12)
[2023-08-08] MEDS: Aspirin 325 MG TAB PO (09:00)
[2023-08-08] MEDS: Albuterol HFA 8 GM 60 PUFF INH IH (09:38)
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
[2023-08-08] MEDS: Albuterol/Ipratropium 3 ML UPD VIAL UPD (12:49)
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
--- NOTE | 2023-08-08 13:00 | PHA.REVIEW2 ---
Pharmacy Admission Review Admission Clinical Review Admission Pharmacy Review: (Updated 08/08/23 @ 00:46 by Luiz Orta MD) Hypoxia (Acute) Influenza A (Acute) clindamycin Allergy (Severe, Verified 08/07/23 20:32) bee venom protein (honey bee) Allergy (Intermediate, Verified 08/07/23 20:32) dizziness, vomiting and swelling clarithromycin Allergy (Mild, Verified 08/07/23 20:32) halothane Allergy (Mild, Verified 08/07/23 20:32) Penicillins Allergy (Unknown, Verified 08/07/23 20:32) amoxicillin Allergy (Verified 08/07/23 20:32) Opioids - Morphine Analogues Adverse Reaction (Severe, Verified 08/07/23 20:32) Nausea,vomiting tramadol Adverse Reaction (Severe, Verified 08/07/23 20:32) NAUSEA, VOMITING diazepam Adverse Reaction (Mild, Verified 08/07/23 20:32) HALLUCINATIONS skintastic Allergy (Uncoded 08/07/23 20:32) Resuscitation Status Full Code Height 5 ft 3 in Weight 152.407 kg Pharmacy Admission Review Renal Dosing Renal Dosing: BUN 13 mg/dL (7-18) 08/07/23 20:39 Creatinine 0.9 mg/dL (0.55-1.02) 08/07/23 20:39 Medications needing adjustments: Reviewed (crcl = 87, no adjustments needed) Anticoagulation Anticoagulation: Hgb 13.6 g/dL (11.2-15.7) 08/08/23 06:12 Hct 44.4 % (36.0-46.0) 08/08/23 06:12 Plt Count 177 10^3/uL (130-400) 08/08/23 06:12 Creatinine 0.9 mg/dL (0.55-1.02) 08/07/23 20:39 DVT Prophylaxis: Reviewed Medications: Enoxaparin (40 mg daily) Therapeutic Anticoagulation: N/A Opiate Usage Evaluate Pain Scale/Pains Meds: N/A (not on opiates) Relevant Labs Relevant Labs: Sodium 138 mmol/L (136-145) 08/07/23 20:39 Potassium 4.1 mmol/L (3.5-5.1) 08/07/23 20:39 Chloride 98 mmol/L (98-107) 08/07/23 20:39 Magnesium 1.6 mg/dL (1.8-2.4) L 08/07/23 20:39 Electrolytes, C-Reactive P, ESR: Reviewed DM Control DM Control: Reviewed Cardiac Review Cardiac Review: Troponin I < 50 ng/L (<or=60) 08/07/23 23:28 NT-Pro-B Natriuret Pep 348 pg/mL (<300) H 08/07/23 20:39 BP, HR, EF%: Reviewed QTc Review QTc: Reviewed IV to PO Switch IV Medications: Reviewed Home Meds Home Med List reviewed: Reviewed
--- NOTE | 2023-08-08 13:37 | PDOC.CMDIS ---
Date of service: 08/08/23 Time of Service: 13:37 LACE Index Scoring Tool Questions: Length of Stay (in days): 1 Was the patient admitted via the E.D.?: Yes E.D. Visits: 0 Answers: Total Score: 4 Risk of Readmission: Low Risk Care Management Discharge Plan Reason for Hospitalization: Acute hypoxic respiratory failure Discharge Plan: Manasa will return home today with no new services. Her daughter, Vilma, will drive her home via private vehicle. She will follow up with her PCP and discharge plan of care. She is happy to be going home. Patient/Family Education Needs: Review discharge instructions and limitations, discussion of self care needs including ask me three
== END 2023-08-08 13:40 | disposition home or self-care (01) | DRG 194 ==
LOC: ER 08-08 01:27 → MS 08-08 12:55
PROVIDERS: Admitting Provider Student in an Organized Health Care Education/Training Program; Emergency Provider Registered Nurse Emergency; PCP Nurse Practitioner Family; Visit Provider Student in an Organized Health Care Education/Training Program
DX: J10.1 Influenza due to other identified influenza virus with other respiratory manifestations (principal); B20 Human immunodeficiency virus [HIV] disease; Z68.43 Body mass index [BMI] 50.0-59.9, adult; G89.29 Other chronic pain; R09.02 Hypoxemia; E66.01 Morbid (severe) obesity due to excess calories; J45.20 Mild intermittent asthma, uncomplicated; M15.9 Polyosteoarthritis, unspecified; R26.9 Unspecified abnormalities of gait and mobility; F41.1 Generalized anxiety disorder; F32.A Depression, unspecified; R32 Unspecified urinary incontinence; G47.33 Obstructive sleep apnea (adult) (pediatric); M54.9 Dorsalgia, unspecified; Z96.643 Presence of artificial hip joint, bilateral; M51.26 Other intervertebral disc displacement, lumbar region; Z79.899 Other long term (current) drug therapy; I11.0 Hypertensive heart disease with heart failure; I50.9 Heart failure, unspecified
CPT/HCPCS: 00123; 36415; 71275; 80053; 82805; 85027; 87040; 87637; 93005; 94640; 96365; 96372; 96375; 99285; J1650; 71045; 83605; 83735; 83880; 84484; 85025; 85379; 93010; 94664; 94760; 99235; J0131; J2930; J3490; J7620

== ENCOUNTER 2023-08-31 03:39 | Outpatient (CLI) | payer OTHER, SELFPAY ==
[2023-08-31 08:19] LABS: Abs Immature Grans 0.03 10^3/uL (0.0-0.06); Absolute Basophil Count 0.02 10^3/uL (0.0-0.2); Absolute Eosinophil Count 0.06 10^3/uL (0.0-0.7); Absolute Lymphocyte Count 2.79 10^3/uL (1.2-3.4); Absolute Monocyte Count 0.55 10^3/uL (0.1-0.8); Absolute Neutrophil Count 2.65 10^3/uL (1.2-6.7); Basophils % 0.3; HCT 42.4 % (36.0-46.0); HGB 12.8 g/dL (11.2-15.7); Immature Grans % 0.5; Lymphocytes % 45.7; MCH 27.4 pg (27.0-33.0); MCHC 30.2 % (32.0-36.0); MCV 91 fL (80-95); MPV 10.2 fL (8.0-11.0); Neutrophils % 43.5; Platelet Count 208 10^3/uL (130-400); RBC 4.68 10^6/uL (3.93-5.22); RDW 15.8 % (11.7-14.6); RDW-SD 52.5 fL
[2023-08-31 09:28] LABS: ALT 21 U/L (14-59); AST 15 U/L (15-37); Albumin 2.9 g/dL (3.4-5.0); Alkaline Phosphatase 76 U/L (46-116); Anion Gap 3.5 mmol/L (3-11); BUN 21 mg/dL (7-18); Bilirubin, Total 0.5 mg/dL (0.2-1.0); CO2 32.5 mmol/L (21.0-32.0); CREATININE 0.9 mg/dL (0.55-1.02); Calcium 8.5 mg/dL (8.5-10.1); Calculated LDL 90 mg/dL (<100); Chloride 105 mmol/L (98-107); Cholesterol 154 mg/dL (<200); Estimated GFR 73.19 (mL/min/1.73m2); Glucose 106 mg/dL (74-106); HDL Cholesterol 55 mg/dL (40-60); Potassium 4.2 mmol/L (3.5-5.1); Sodium 141 mmol/L (136-145); TSH (W/Ref FT4) 5.06 uIU/mL (0.36-3.74); Total Protein 7.9 g/dL (6.4-8.2); Triglyceride 49 mg/dL (<150)
[2023-08-31 09:49] LABS: FREE T4 0.77 ng/dL (0.76-1.46)
[2023-09-01 14:22] LABS: 4/8 Ratio 0.17 (>=0.90); Absolute CD3 2214 Cells/uL (840-2669); Absolute CD8 1907 Cells/uL (154-1097); CD3 70 % (56-84); CD4 10 % (31-64); CD8 60 % (9-39)
[2023-09-02 11:19] LABS: HIV 1 RNA Qualitative Undetected copies/mL (Undetected)
== END 2023-08-31 03:40 | disposition home or self-care (01) ==
LOC: LBO 03:39
PROVIDERS: PCP Nurse Practitioner Family; Visit Provider Nurse Practitioner Family
DX: Z13.220 Encounter for screening for lipoid disorders (principal); Z13.29 Encounter for screening for other suspected endocrine disorder
CPT/HCPCS: 36415; 80053; 80061; 87536; 84439; 84443; 85025; 86359; 86360

== ENCOUNTER 2024-01-10 05:23 | Outpatient (CLI) | payer OTHER, SELFPAY ==
--- NOTE | 2024-01-10 10:24 | W.NUTRFU ---
Date of service: 01/10/24 Time of Service: 09:00 Nutrition Note NOTE: Received referral for Manasa to come in for nutrition visit focused on her weight mgt goal of healthy weight loss. She has considered bariatric surgery but at this time reports she is less interested in it and would like to focus on what she can do with her own efforts. Her weight at her visit with provider on 12/29/23 was 352pounds and she reports her weight yesterday (weighs herself periodically) at 325pounds. She attended the virtual presentation I made to [facility] on HIV and Nutrition and started working on decreasing her added sugar, getting more protein, and reinvesting herself in an activity goal she has had, which is to walk the length of [address] (where she lives) - she reports progress with her walking more now than where she was at this time last year. Manasa does not current take any nutrition supplements. She is in the middle when it comes to picky eating - won't eat beans and some seafood choices and certain veggies. Along with her main achievement of lowering her added sugar intake, and being more aware of how much and where common sources for her are, she has been working on drinking more water and is very choosy with the way water tastes - averages a good 32-48oz daily currently. Has not drank soda in 5 years. Has 2 cups of coffee on an average day and switched her creamer to zero sugar. Diet recall: She reports yesterday was a bad day and was out a lot. B: cheese omelet with sausage with small cornbread and coffee L: Burger with lettuce and tomato and ate 1/2 of the bun with about 2 cups of fries D: nothing due to thinking she had too much at lunch and had a v8 juice. We discussed the big impact lowering her added sugar intake is having and reviewed 3 more tips and goals 1. aim for total carb intake of ~220g per day. we reviewed fiber, added sugar, starches all are included in this and reviewed counting carbs and serving sizes for 15 grams 2. aim for ~110g protein minimum daily and include at all meals and might think of 1-2 protein rich snacks to help achieve this goal. try to include more plant protein 3. aim for veggies throughout the day - include at least 1 serving at all meals and pair with protein choice for 1-2 snacks per day. We reviewed some menu planning strategies. Manasa will come back in february for a 30 minute follow up Time Spent in Nutritional Counseling and Treatment: 45 min
== END 2024-01-10 05:24 | disposition home or self-care (01) ==
LOC: DS 05:24
PROVIDERS: PCP Nurse Practitioner Family; Visit Provider Dietitian, Registered
DX: E66.01 Morbid (severe) obesity due to excess calories (principal)
CPT/HCPCS: 00123; 97802

== ENCOUNTER 2024-09-12 00:25 | Outpatient (CLI) | payer OTHER, SELFPAY ==
--- NOTE | 2024-09-12 06:45 | DI.CT_ITS ---
Exam(s) CT ABDOMEN PELVIS CTA EXAM: CT ABDOMEN PELVIS CTA CLINICAL HISTORY: f/u splenic artery aneurysm,i72.8. TECHNIQUE: Imaging Protocol: Axial CT angiography was performed with multi-slice acquisition and m ulti-planar and/or 3D reconstructions. CONTRAST MATERIAL: Intravenous: Omnipaque 350 Contrast volume:100 ml Oral: no COMPARISON: CT CT CHEST PE CTA from 11/26/[address] THORACIC LUMBAR SPINE WO from 09/18/[address] THORAX ABD/PEL CTA from 09/18/[address] ABDOMEN PELVIS CTA from 09/16/[address] PELVIC WO from 06/29/[address] CHEST PE CTA from 08/07/2023 FINDINGS: Vascular Structures: Splenic artery: Stable 15 x 18 millimeter peripherally calcified splenic artery aneurysm near the spl enic hilum. Celiac Empire:No evidence of stenosis. SMA: No evidence of stenosis. Renal Arteries: No evidence of stenosis. 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 Aorta: No aneurysm. No dissection. No significant stenosis. Iliac Arteries: No evidence of stenosis. Common Femoral Arteries: No evidence of stenosis. Soft Tissues:Unremarkable. Lung bases:No acute findings. Liver: Normal size. Normal density. No measurable mass. Gallbladder and biliary tract: No evidence of calculi. No gallbladder wall thickening. No biliary di lation. Pancreas: Normal density, no abnormal calcifications or inflammatory process. Spleen: Normal. Kidneys: Normal size, contour and axis. No obstructive uropathy. No masses seen. No evidence of calcu li. Adrenal glands: No masses seen. Bladder: No gross wall thickening. No evidence of calculi. No evidence of mass. Bowel: No obstruction or bowel wall thickening. Mild sigmoid diverticulosis. Peritoneal cavity: No ascites. No focal collection. No mesenteric inflammatory response. Bones: No acute findings. Bilateral hip prostheses. Lymph nodes: Enlarged bilateral pelvic sidewall and bilateral inguinal lymph nodes are again noted. The largest is in the right inguinal region measuring 4.8 cm in in long axis. Reproductive: Unremarkable. IMPRESSION: Stable splenic artery aneurysm. Enlarged bilateral inguinal lymph and pelvic nodes which appears stable. The largest is on the right and measures 4.8 cm in the long axis. RADIATION DOSE DELIVERED: 971.57mGy.cm Total DLP DATA REPOSITORY: All CT scans at this facility are submitted to the National Radiology Data Registry (NRDR) Dose Index Registry (DIR) with the [employer] (ACR). RADIATION OPTIMIZATION: All CT scans at this facility use at least one of these dose optimization te chniques: automated exposure control; mA and/or kV adjustment per patient size (includes targeted exa ms where dose is matched to clinical indication); or iterative reconstruction.
[2024-09-12 13:20] LABS: Abs Immature Grans 0.01 10^3/uL (0.0-0.06); Absolute Basophil Count 0.02 10^3/uL (0.0-0.2); Absolute Eosinophil Count 0.09 10^3/uL (0.0-0.7); Absolute Lymphocyte Count 2.52 10^3/uL (1.2-3.4); Absolute Monocyte Count 0.54 10^3/uL (0.1-0.8); Absolute Neutrophil Count 2.36 10^3/uL (1.2-6.7); Basophils % 0.4 %; Eosinophils % 1.6 %; HCT 43.3 % (36.0-46.0); Immature Grans % 0.2 %; Lymphocytes % 45.5 %; MCH 27.7 pg (27.0-33.0); MCV 92 fL (80-95); MPV 10.5 fL (8.0-11.0); Monocytes % 9.7 %; Neutrophils % 42.6 %; Platelet Count 202 10^3/uL (130-400); RDW 14.7 % (11.7-14.6); RDW-SD 50.1 fL; WBC 5.54 10^3/uL (4.4-10.8)
[2024-09-12 13:34] LABS: ALT 22 U/L (14-59); AST 22 U/L (15-37); Albumin 3.3 g/dL (3.4-5.0); Alkaline Phosphatase 84 U/L (46-116); BUN 17 mg/dL (7-18); Bilirubin, Total 0.37 mg/dL (0.2-1.0); CREATININE 0.9 mg/dL (0.55-1.02); Calcium 8.9 mg/dL (8.5-10.1); Chloride 104 mmol/L (98-107); Estimated GFR 72.73 (mL/min/1.73m2); Glucose 93 mg/dL (74-106); Potassium 4.6 mmol/L (3.5-5.1); Sodium 144 mmol/L (136-145); Total Protein 8.8 g/dL (6.4-8.2)
[2024-09-12 13:46] LABS: Calculated LDL 93 mg/dL (<100); Cholesterol 169 mg/dL (<200); HDL Cholesterol 63 mg/dL (40-60); Triglyceride 68 mg/dL (<150)
[2024-09-12] MEDS: Normal Saline - Diluent 50 ML VIAL IJ (13:54)
--- NOTE | 2024-09-12 15:03 | DI.MAMMO_ITS ---
Exam(s) MAMMO SCREENING EXAM: MAMMO SCREENING CLINICAL HISTORY: screening,z12.39 TECHNIQUE: Mammograms were interpreted according to the usual protocol including computer analysis w [employer] CAD system, tomosynthesis and C-view imaging. COMPARISON: 2015 through 2022 FINDINGS: The breasts are composed of mainly fatty density , Breast Density category A. No suspicious masses or suspicious microcalcifications are seen. No skin thickening or abnormal axillary lymph nodes are seen. There has been no significant change from prior exams. IMPRESSION: BI-RADS Category 1, Negative mammogram Yearly screening mammography is recommended. Breast Density - Category A, fatty density. A negative radiographic report should not delay biopsy if a dominant or clinically suspicious mass is present. Up to ten percent of cancers are not identified on mammography. A negative report may reinforce clinical impression. Adenosis and dense breasts may obscure an underlying neoplasm. False positive reports average 6 to 10%. Patient will receive a letter notifying them of these results.
[2024-09-13 14:45] LABS: 4/8 Ratio 0.19 (>=0.90); Absolute CD3 1891 Cells/uL (840-2669); Absolute CD8 1601 Cells/uL (154-1097); CD3 71 % (56-84); CD4 11 % (31-64); CD8 60 % (9-39)
[2024-09-14 13:31] LABS: HIV 1 RNA Qualitative Undetected Copys/mL (Undetected)
== END 2024-09-12 00:45 ==
LOC: DI 00:25
PROVIDERS: PCP Nurse Practitioner Family; Visit Provider Nurse Practitioner Family
DX: Z13.220 Encounter for screening for lipoid disorders (principal); Z13.1 Encounter for screening for diabetes mellitus; I72.8 Aneurysm of other specified arteries; Z12.31 Encounter for screening mammogram for malignant neoplasm of breast
CPT/HCPCS: 77063; 77067; 80053; 80061; 87536; 74174; 83036; 85025; 86359; 86360

== ENCOUNTER 2024-12-24 12:59 | Inpatient (IN) | payer OTHER, SELFPAY ==
[2024-12-24] VITALS (66 sets, daily range): BP systolic 164–216; BP diastolic 65–108; PULSE 79–111; RESP 11–34; TEMP 36.6–37.1; O2SAT 72–96
--- NOTE | 2024-12-24 13:30 | DI.RAD_ITS ---
Exam(s) XR TIB/FIB RT EXAM: XR TIB/FIB RT CLINICAL HISTORY: Wound. TECHNIQUE: 2D digital imaging was performed of the right tibia and fibula. Five images were obtained . AP and lateral views were obtained. COMPARISON: CR,XR XR ANKLE RT 2V from 09/18/2019 CR,XR XR FOOT RT COMPLETE from 06/07/2020 FINDINGS: BONES: There is an intramedullary holland in the distal tibia traversing the tibial talar joint into the calcaneus. There is lucency seen about the orthopedic hardware in the calcaneus which may represent loosening or infection. The tibial talar joint is fused. There is resection of the distal fibula. No bony destructive lesion is seen. No acute fracture or dislocation. SOFT TISSUE: There is a soft tissue defect in the lateral lower leg which may be postsurgical or refl ect an ulcer. No destructive changes are present adjacent to this defect to suggest an osteomyelitis radiographically. Significant soft tissue calcifications are seen in the lower leg. There is also marked soft tissue swelling of the lower leg. IMPRESSION: 1. There is marked soft tissue swelling of the right lower extremity with a defect in the skin on the lateral lower leg consistent with the patient's wound/ulcer. 2. No destructive changes are seen in the adjacent tibia and fibula to suggest acute osteomyelitis. 3. Intramedullary holland traversing the tibial talar joint. There is lucency about the orthopedic hardw are in the calcaneus suggesting loosening or possible infection. DATA REPOSITORY: RADIATION DOSE DELIVERED:
--- NOTE | 2024-12-24 13:45 | DI.CT_ITS ---
Exam(s) CT LOWER EXTREMITY RT W EXAM: CT LOWER EXTREMITY RT W CLINICAL HISTORY: Non-healing wound w maggots. TECHNIQUE: Imaging Protocol: Axial computed tomography images with coronal and sagittal reformatted images were created and reviewed. CONTRAST MATERIAL: Intravenous: Omnipaque 350. Contrast Volume: 100 ML COMPARISON: CR XR TIB/FIB RT from 12/24/2024 FINDINGS: Bones: There is an intramedullary holland in the distal tibia traversing the tibial talar joint and exte nding into the calcaneus. There lucency seen around the orthopedic hardware in the calcaneus. There are postsurgical changes with resection of the distal fibula. There are degenerative changes seen i n the knee characterized by joint space narrowing and osteophytes. The findings are most marked in t he lateral femoral tibial and patellofemoral joint. There is fusion of the tibial talar joint. No e rosive changes are seen in the distal tibia and fibula adjacent to the skin defect laterally to sugge st osteomyelitis in this area. Soft Tissues: There is a soft tissue defect in the lateral leg measuring 3.8 AP by 6.6 cm low cranioc audad. This may represent an area of ulceration. There is significant edema seen in the soft tissue s of the lower leg with skin thickening consistent with cellulitis. Dystrophic calcifications are pr esent throughout the soft tissues. No focal fluid collection is seen to suggest an abscess. There i s marked atrophy of the muscles of the lower leg and calf. Enhancement: No focal fluid collection is seen to suggest an abscess. IMPRESSION: 1. Postsurgical changes of the tibial talar fusion. There is lucency seen around the orthopedic hard mcfarland in the calcaneus. This may represent loosening or infection. 2. Large skin defect at the lateral aspect of the lower leg which may represent an ulcer. Please cor relate clinically. 3. Diffuse edema and skin thickening in the lower leg consistent with cellulitis. No focal fluid col lection is seen to suggest an abscess. The adjacent tibia and fibula show no evidence to suggest acu te osteomyelitis. 4. Diffuse muscular fatty atrophy in the lower leg. RADIATION DOSE DELIVERED: 655.2mGy.cm Total DLP 655.2mGy.cm Total DLP DATA REPOSITORY: All CT scans at this facility are submitted to the National Radiology Data Registry (NRDR) Dose Index Registry (DIR) with the [employer] (ACR). RADIATION OPTIMIZATION: All CT scans at this facility use at least one of these dose optimization te chniques: automated exposure control; mA and/or kV adjustment per patient size (includes targeted exa ms where dose is matched to clinical indication); or iterative reconstruction.
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
[2024-12-24 14:10] LABS: Lactate 1.1 mmol/L (<or=2.0)
[2024-12-24 14:14] LABS: Abs Immature Grans 0.04 10^3/uL (0.0-0.06); Absolute Basophil Count 0.04 10^3/uL (0.0-0.2); Absolute Eosinophil Count 0.06 10^3/uL (0.0-0.7); Absolute Lymphocyte Count 2.57 10^3/uL (1.2-3.4); Absolute Monocyte Count 0.73 10^3/uL (0.1-0.8); Absolute Neutrophil Count 3.47 10^3/uL (1.2-6.7); Basophils % 0.6 %; Eosinophils % 0.9 %; HCT 42.7 % (36.0-46.0); HGB 12.5 g/dL (11.2-15.7); Immature Grans % 0.6 %; Lymphocytes % 37.2 %; MCH 26.7 pg (27.0-33.0); MCHC 29.3 % (32.0-36.0); MCV 91 fL (80-95); Monocytes % 10.6 %; Neutrophils % 50.1 %; Platelet Count 166 10^3/uL (130-400); RBC 4.68 10^6/uL (3.93-5.22); RDW 15.7 % (11.7-14.6); RDW-SD 52.5 fL; WBC 6.91 10^3/uL (4.4-10.8)
[2024-12-24 14:29] LABS: ALT 14 U/L (14-59); AST 20 U/L (15-37); Albumin 2.5 g/dL (3.4-5.0); Alkaline Phosphatase 75 U/L (46-116); Anion Gap 5.9 mmol/L (3-11); BUN 18 mg/dL (7-18); Bilirubin, Total 0.3 mg/dL (0.2-1.0); C-Reactive Protein 1.38 mg/dL (<or=0.5); CO2 28.1 mmol/L (21.0-32.0); CREATININE 0.7 mg/dL (0.55-1.02); Calcium 7.5 mg/dL (8.5-10.1); Chloride 108 mmol/L (98-107); Estimated GFR 97.72 (mL/min/1.73m2); Glucose 88 mg/dL (74-106); Magnesium 1.3 mg/dL (1.8-2.4); Potassium 3.2 mmol/L (3.5-5.1); Sodium 142 mmol/L (136-145); Total Protein 7.5 g/dL (6.4-8.2)
[2024-12-24 15:08] LABS: Procalcitonin < 0.10 ng/mL
[2024-12-24] MEDS: Normal Saline - Diluent 50 ML VIAL IJ (15:44)
[2024-12-24] MEDS: Omnipaque 350 MG/ML 100 ML BTL IJ (15:45)
[2024-12-24] MEDS: cefTRIAXone 2 GM/50 ML BAG IVPB (16:01)
[2024-12-24] MEDS: MAGNESIUM SULFATE 1 GM/100 ML BAG IV_INF (16:39)
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
[2024-12-24] MEDS: Potassium Chloride 20 MEQ TABCR 40 MEQ PO (18:33)
[2024-12-24] MEDS: LORazepam 20 MG/10 ML VIAL IVP (18:34)
--- NOTE | 2024-12-24 20:24 | NUR.NOTE ---
Mag shows as still running upon assuming care of pt, no Mag actually running at this time, JOSEPHJ
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
[2024-12-24] MEDS: VANCOMYCIN 1,500 MG in Normal Saline 250 ML 166.6666 MG IVPB (23:33)
[2024-12-24] MEDS: Normal Saline Flush 10 ML SYR IVP (23:41)
[2024-12-24] MEDS: Water,Injection,Sterile 10 ML VIAL (23:53)
--- NOTE | 2024-12-25 | DI.MRI_ITS ---
Exam(s) MR LOWER EXTREMITY RT WO/W EXAM: MR LOWER EXTREMITY RT WO/W CLINICAL HISTORY: ulcer, cellulitis, possible osteomyelitis. TECHNIQUE: Multiplanar multisequence MRI was performed. CONTRAST MATERIAL: IV Contrast: 20 mL of Dotarem contrast administered. COMPARISON: Plain films and CT 24 Dec 2024 FINDINGS: Exam limited by motion and patient body habitus. Also limited by metallic artifact from hardware. BONES: No evidence of fracture. Ankle fusion hardware with intramedullary holland in tibia through calca neus. Screws in talus and calcaneus. No visible surrounding fluid or abnormal signal. SOFT TISSUES: Diffuse marked subcutaneous edema. Lateral soft tissue open wound. No drainable colle ction. IMPRESSION: No evidence of osteomyelitis. Soft tissue wound and significant edema. No evidence of abscess DATA REPOSITORY:
[2024-12-25] MEDS: VANCOMYCIN 1,500 MG in Normal Saline 250 ML 166.6666 MG IVPB (01:30)
[2024-12-25] MEDS: Water,Injection,Sterile 10 ML VIAL (01:33)
[2024-12-25 04:30] LABS: Abs Immature Grans 0.02 10^3/uL (0.0-0.06); Absolute Basophil Count 0.02 10^3/uL (0.0-0.2); Absolute Eosinophil Count 0.05 10^3/uL (0.0-0.7); Absolute Monocyte Count 0.41 10^3/uL (0.1-0.8); Basophils % 0.4 %; Eosinophils % 0.9 %; HCT 38.8 % (36.0-46.0); HGB 11.5 g/dL (11.2-15.7); Immature Grans % 0.4 %; Lymphocytes % 18.9 %; MCH 27.1 pg (27.0-33.0); MCHC 29.6 % (32.0-36.0); MCV 91 fL (80-95); MPV 10.3 fL (8.0-11.0); Monocytes % 7.7 %; Neutrophils % 71.7 %; Platelet Count 159 10^3/uL (130-400); RBC 4.25 10^6/uL (3.93-5.22); RDW 15.7 % (11.7-14.6)
[2024-12-25 04:48] LABS: Anion Gap 1.5 mmol/L (3-11); BUN 15 mg/dL (7-18); CO2 34.5 mmol/L (21.0-32.0); CREATININE 0.7 mg/dL (0.55-1.02); Calcium 8.4 mg/dL (8.5-10.1); Chloride 103 mmol/L (98-107); Estimated GFR 97.72 (mL/min/1.73m2); Glucose 144 mg/dL (74-106); Magnesium 1.7 mg/dL (1.8-2.4); Potassium 4.3 mmol/L (3.5-5.1); Sodium 139 mmol/L (136-145)
[2024-12-25 05:10] LABS: Vancomycin, Random 27.8 ug/mL
[2024-12-25] MEDS: Ibuprofen 600 MG TAB PO (06:53)
[2024-12-25 08:14] VITALS: BP 146/65; PULSE 83; RESP 24; TEMP 37; O2SAT 93
[2024-12-25 08:44] VITALS: O2SAT 93
--- NOTE | 2024-12-25 08:45 | RESPIRATORY ---
Pt advised she has not worn her home BiPAP since winter time as she is sleeping in a new room and there isn't really a place to set it up.
[2024-12-25] MEDS: hydroCHLOROthiazide 25 MG TAB 37.5 MG PO (09:17)
[2024-12-25] MEDS: Aspirin 325 MG TAB PO (09:21)
[2024-12-25] MEDS: Metoprolol CR 50 MG TABCR PO (09:21)
[2024-12-25] MEDS: Acetaminophen 325 MG TAB 650 MG PO ×4 (09:22→19:58)
[2024-12-25] MEDS: Normal Saline Flush 10 ML SYR IVP ×3 (09:24→19:59)
[2024-12-25] MEDS: amLODIPine 5 MG TAB PO (09:25)
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
[2024-12-25] MEDS: LORazepam 20 MG/10 ML VIAL IVP (10:33)
[2024-12-25] MEDS: Gadoterate meglumine 20 ML VIAL IVP (11:07)
[2024-12-25] MEDS: MAGNESIUM SULFATE 1 GM/100 ML BAG IV_INF (12:03)
--- NOTE | 2024-12-25 14:16 | NUR.NOTE ---
Nursing Note: Reviewed documentation with Nikki Anderson, student RAMIN. Agreet with assessment.
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
[2024-12-25 15:39] LABS: Vancomycin, Random 12.8 ug/mL
--- NOTE | 2024-12-25 16:23 | W.PM.PROGNOT ---
Date of Service Date of service: 12/25/24 Time of Service: 16:23 Assessment and Plan Assessment and plan (1) Cellulitis of right ankle: Status: Acute Assessment and plan: -afebrile with normal WBCs, inflammatory markers not overly elevated -there is a large ulcer lateral RLE -CT does not conclusively show osteomyelitis, ortho who have accepted her for transfer pending bed availability-accepting is Dr. Monroe -- will benefit from surgical debridement and possible wound vac continue vanc with dosing per pharmacy -MRI No evidence of osteomyelitis. Soft tissue wound and significant edema. No evidence of abscess (2) Chronic pain: Status: Chronic Assessment and plan: -continue usual medication regimen (3) HIV positive: Status: Chronic Assessment and plan: -10/03 labs with undectable viral load, CD 4 low -followed by ID -continue usual medications, pt has them with her (4) Hypertension: Status: Chronic Assessment and plan: -continue amlodipine, HCTZ and metoprolol -also on torsemide presumably for LE edema, will hold for now (5) Morbid obesity: Status: Chronic Assessment and plan: -wt of 163 kg BMI 63.8 (6) Mild intermittent asthma: Status: Chronic Assessment and plan: -prn albuterol Subjective Subjective Patient reports: no new complaints Exam Const General: no acute distress Nutritional Appearance: obese Resp Auscultation: clear to auscultation bilaterally Cardio Rate: regular rate Rhythm: regular rhythm Heart Sounds: S1 normal and S2 normal GI Palpation: soft Auscultation: normal bowel sounds Skin Lesions: lesion noted (large ulcer lateral RLE) Extrem Right lower extremity: edema (thigh edematous) Psych Appearance: grossly normal Affect: anxious affect Objective Last Vital Signs Temp 37.0 C 12/25/24 08:14 Pulse 83 12/25/24 08:14 Resp 24 12/25/24 08:14 BP 146/65 H 12/25/24 08:14 Pulse Ox 93 12/25/24 08:44 Laboratory Results - last 24 hr 12/25/24 12/25/24 04:22 15:00 WBC 5.30 RBC 4.25 Hgb 11.5 Hct 38.8 MCV 91 MCH 27.1 MCHC 29.6 L RDW 15.7 H Plt Count 159 MPV 10.3 Immature Gran % 0.4 Neutrophils % 71.7 Lymphocytes % 18.9 Monocytes % 7.7 Eosinophils % 0.9 Basophils % 0.4 Nucleated RBC % 0.0 Absolute Neutrophils 3.80 Absolute Lymphocytes 1.00 L Absolute Monocytes 0.41 Absolute Eosinophils 0.05 Absolute Basophils 0.02 Sodium 139 Potassium 4.3 D Chloride 103 Carbon Dioxide 34.5 H Anion Gap 1.5 L BUN 15 Creatinine 0.7 Est GFR (CKD-EPI 2020) 97.72 Glucose 144 H Calcium 8.4 L Magnesium 1.7 L Vancomycin Trough Cancelled Random Vancomycin 27.8 12.8 PAWSS Have you Been Recently Intoxicated or Drunk Within the Last 30 days?: No Have you Ever Experienced Previous Episodes of Alcohol Withdrawal?: No Have you ever Experienced Withdrawal Seizures?: No Have you ever Experienced Delirium Tremens(DT)s?: No Have you ever undergone Alcohol Rehabilitation Treatment (i.e, inpt ot outpatient treatment programs)?: No Have you ever Experienced Blackouts?: No Have you ever Combined Alcohol with other Downers within the last 90 days?: No Have you ever Combined Alcohol with any other Substance of Abuse during the last 90 days?: No Positive Blood Alcohol level on Presentation? [PCS.BAL]: No Evidence of Increased Autonomic Activity (i.e. HR>120, tremor, sweating, agitation, nausea)?: No Result: 0 Time Spent with Patient Time Spent with Patient: 25-34 minutes Time was spent: preparing to see the patient(eg.review tests), ordering medications,tests, procedures, referring, communicating with other health career representative, indepentently interpreting results, counseling the patient and care coordination
[2024-12-25 17:00] LABS: Lab Add On Test DONE
[2024-12-25] MEDS: VANCOMYCIN 2,000 MG in Normal Saline 500 ML 250 MG IVPB (17:01)
[2024-12-25 17:08] LABS: HCG Qual (Serum) Negative
[2024-12-25] MEDS: Enoxaparin 40 MG/0.4 ML SYR SC (19:58)
[2024-12-25 20:00] VITALS: BP 162/77; PULSE 76; RESP 17; TEMP 36.6; O2SAT 89
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
[2024-12-26 07:10] LABS: Abs Immature Grans 0.02 10^3/uL (0.0-0.06); Absolute Basophil Count 0.01 10^3/uL (0.0-0.2); Absolute Eosinophil Count 0.09 10^3/uL (0.0-0.7); Absolute Lymphocyte Count 1.34 10^3/uL (1.2-3.4); Absolute Monocyte Count 0.49 10^3/uL (0.1-0.8); Absolute Neutrophil Count 2.33 10^3/uL (1.2-6.7); Basophils % 0.2 %; Eosinophils % 2.1 %; HCT 39.7 % (36.0-46.0); HGB 11.4 g/dL (11.2-15.7); Immature Grans % 0.5 %; Lymphocytes % 31.3 %; MCH 26.8 pg (27.0-33.0); MCHC 28.7 % (32.0-36.0); MCV 93 fL (80-95); MPV 10.2 fL (8.0-11.0); Monocytes % 11.4 %; Neutrophils % 54.5 %; Platelet Count 148 10^3/uL (130-400); RBC 4.26 10^6/uL (3.93-5.22); RDW 15.9 % (11.7-14.6); RDW-SD 53.9 fL; WBC 4.28 10^3/uL (4.4-10.8)
[2024-12-26 07:27] LABS: Anion Gap 2.9 mmol/L (3-11); BUN 17 mg/dL (7-18); C-Reactive Protein 2.35 mg/dL (<or=0.5); CO2 35.1 mmol/L (21.0-32.0); CREATININE 0.9 mg/dL (0.55-1.02); Calcium 8.6 mg/dL (8.5-10.1); Chloride 104 mmol/L (98-107); Estimated GFR 72.28 (mL/min/1.73m2); Glucose 116 mg/dL (74-106); Magnesium 1.9 mg/dL (1.8-2.4); Potassium 4.1 mmol/L (3.5-5.1); Sodium 142 mmol/L (136-145)
[2024-12-26] MEDS: Acetaminophen 325 MG TAB 650 MG PO ×4 (08:04→20:33)
[2024-12-26] MEDS: Metoprolol CR 50 MG TABCR PO (08:04)
[2024-12-26] MEDS: Aspirin 325 MG TAB PO (08:04)
[2024-12-26] MEDS: amLODIPine 5 MG TAB PO (08:05)
[2024-12-26 08:06] VITALS: BP 137/67; PULSE 73; RESP 19; TEMP 36.8; O2SAT 91
[2024-12-26] MEDS: hydroCHLOROthiazide 25 MG TAB 37.5 MG PO (08:06)
[2024-12-26] MEDS: Normal Saline Flush 10 ML SYR IVP ×3 (08:10→20:33)
--- NOTE | 2024-12-26 08:46 | CMPROGNOTE_ITS ---
Date of service: 12/26/24 Time of Service: 13:23 Care Management Progress Note Progress Note Text Progress Note Text: Manasa was sitting up in bed and visiting with someone, when CM met with her. Per report, she has been accepted at [facility] [place] but is awaiting a bed at this time. Manasa was tearful and states that she has anxiety surrounding not understand her medical plan. Manasa states that she is feeling frustrated, and feels like the transfer to [facility] [place] has not been explained well to her. She states that she would like to speak to the provider, CM communicated this with the provider. CM will continue to follow. Discharge Potential Discharge Needs: PCP F/U Appt and Surgical F/U Appt Anticipated Barriers to Discharge: None Identified Patient/Family Education Needs: Review discharge instructions, discuss Ask Me Three Transportation: Private vehicle Plan: Manasa requires treatment at a tertiary hospital and is being transferred to [facility] [place], pending bed availability. CM will follow. Social Determinants of Health Screening Social Determinants of health last assessed in clinic: 12/26/24 Will the Patient Participate in the Screening?: Yes Do you worry about having a steady place to live?: yes What is your living situation today?: I have housing today, but am worried about losing it Problems where you live: no known problems In the past 12 months, have you had to go without electric, gas, oil or water in your home?: no 1. Within the past 12 months, we worried whether our food would run out before we got money to buy more.: Never true 2. Within the past 12 months, the food we bought just didn't last and we didn't have money to get more.: Never true Has lack of transportation kept you from medical appointments or from doing things needed for daily living?: no Has anyone in your life made you feel unsafe or unsupported?: no How hard is it for you to pay for the very basics like food, housing, medical care, and heating? Would you say it is:: Not hard at all Do you want help finding or keeping work or a job?: I do not need or want help If for any reason you need help with day-to-day activities such as bathing, preparing meals, shopping, managing finances, etc., do you get the help you need?: I get all the help I need How often do you feel lonely or isolated from those around you?: Often Do you speak a language other than Kazakh at home?: No Does the patient want assistance with any of the above?: No Health Related Social Needs Health related social needs: housing instability, housed, with risk of homelessness (Z59.811) and feeling lonely/isolated (Z60.8) Health related social needs details: lonley as getting older
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
[2024-12-26] MEDS: LORazepam 1 MG TAB PO (14:23)
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
--- NOTE | 2024-12-26 18:13 | W.PM.PROGNOT ---
Date of Service Date of service: 12/26/24 Time of Service: 18:13 Assessment and Plan Assessment and plan (1) Cellulitis of right ankle: Status: Acute Assessment and plan: -afebrile with normal WBCs, inflammatory markers not overly elevated 2.35 -there is a large ulcer lateral RLE -CT does not conclusively show osteomyelitis, - ortho who have accepted her for transfer pending bed availability-accepting is Dr. Monroe -- will benefit from surgical debridement and possible wound vac - called and bed is still pending - patient kept up to date. - continue vanc with dosing per pharmacy - MRI No evidence of osteomyelitis. Soft tissue wound and significant edema. No evidence of abscess (2) Chronic pain: Status: Chronic Assessment and plan: -continue usual medication regimen (3) HIV positive: Status: Chronic Assessment and plan: -10/03 labs with undectable viral load, CD 4 low -followed by ID -continue usual medications, pt has them with her (4) Hypertension: Status: Chronic Assessment and plan: -continue amlodipine, HCTZ and metoprolol -also on torsemide presumably for LE edema, will hold for now (5) Morbid obesity: Status: Chronic Assessment and plan: -wt of 163 kg BMI 63.8 (6) Mild intermittent asthma: Status: Chronic Assessment and plan: -prn albuterol (7) Anxiety: Status: Chronic Assessment and plan: Lorazepam oral prn Subjective Subjective Patient reports: no new complaints, tolerating liquids well, tolerating a regular diet, voiding w/o difficulty, bowel movement and afebrile; denies diarrhea, nausea, vomiting or shortness of breath Interval history since last seen: Patient is very anxious and is concerned she will have her right lower leg amputated. Explained she is accepted at [facility] and they are the experts and will formulate a plan for her when she gets there. She voiced understanding, but states with the hx of TBI she gets confused. Exam Const General: no acute distress Nutritional Appearance: obese Resp Auscultation: clear to auscultation bilaterally Cardio Rate: regular rate Rhythm: regular rhythm Heart Sounds: S1 normal and S2 normal GI Palpation: soft Auscultation: normal bowel sounds Skin Lesions: lesion noted (large ulcer lateral RLE) Extrem Right lower extremity: edema (thigh edematous) Psych Appearance: grossly normal Affect: anxious affect Objective Last Vital Signs Temp 36.8 C 12/26/24 08:06 Pulse 73 12/26/24 08:06 Resp 19 12/26/24 08:06 BP 137/67 12/26/24 08:06 Pulse Ox 91 L 12/26/24 08:06 Laboratory Results - last 24 hr 12/26/24 06:44 WBC 4.28 L RBC 4.26 Hgb 11.4 Hct 39.7 MCV 93 MCH 26.8 L MCHC 28.7 L RDW 15.9 H Plt Count 148 MPV 10.2 Immature Gran % 0.5 Neutrophils % 54.5 Lymphocytes % 31.3 Monocytes % 11.4 Eosinophils % 2.1 Basophils % 0.2 Nucleated RBC % 0.0 Absolute Neutrophils 2.33 Absolute Lymphocytes 1.34 Absolute Monocytes 0.49 Absolute Eosinophils 0.09 Absolute Basophils 0.01 Sodium 142 Potassium 4.1 Chloride 104 Carbon Dioxide 35.1 H Anion Gap 2.9 L BUN 17 Creatinine 0.9 Est GFR (CKD-EPI 2020) 72.28 Glucose 116 H Calcium 8.6 Magnesium 1.9 C-Reactive Protein 2.35 H PAWSS Have you Been Recently Intoxicated or Drunk Within the Last 30 days?: No Have you Ever Experienced Previous Episodes of Alcohol Withdrawal?: No Have you ever Experienced Withdrawal Seizures?: No Have you ever Experienced Delirium Tremens(DT)s?: No Have you ever undergone Alcohol Rehabilitation Treatment (i.e, inpt ot outpatient treatment programs)?: No Have you ever Experienced Blackouts?: No Have you ever Combined Alcohol with other Downers within the last 90 days?: No Have you ever Combined Alcohol with any other Substance of Abuse during the last 90 days?: No Positive Blood Alcohol level on Presentation? [PCS.BAL]: No Evidence of Increased Autonomic Activity (i.e. HR>120, tremor, sweating, agitation, nausea)?: No Result: 0 Time Spent with Patient Time Spent with Patient: 25-34 minutes Time was spent: preparing to see the patient(eg.review tests), ordering medications,tests, procedures, referring, communicating with other health health care facility administrator, indepentently interpreting results, counseling the patient and care coordination
[2024-12-26 19:27] VITALS: BP 123/62; PULSE 77; RESP 17; TEMP 36.6; O2SAT 90
[2024-12-26] MEDS: Enoxaparin 40 MG/0.4 ML SYR SC (20:33)
[2024-12-26 20:45] VITALS: O2SAT 90
[2024-12-27 05:30] VITALS: TEMP 36.4
[2024-12-27 06:03] VITALS: BP 176/81; PULSE 77; RESP 24; TEMP 36.4; O2SAT 94
[2024-12-27] MEDS: LORazepam 1 MG TAB PO ×2 (06:15→23:18)
[2024-12-27] MEDS: Benzonatate 100 MG CAP PO (06:47)
[2024-12-27 07:30] VITALS: BP 146/55; PULSE 84; RESP 18; TEMP 37.4; O2SAT 89
[2024-12-27 07:34] LABS: Abs Immature Grans 0.02 10^3/uL (0.0-0.06); Absolute Basophil Count 0.03 10^3/uL (0.0-0.2); Absolute Eosinophil Count 0.11 10^3/uL (0.0-0.7); Absolute Lymphocyte Count 1.83 10^3/uL (1.2-3.4); Absolute Monocyte Count 0.62 10^3/uL (0.1-0.8); Absolute Neutrophil Count 2.33 10^3/uL (1.2-6.7); Basophils % 0.6 %; Eosinophils % 2.2 %; HCT 41.1 % (36.0-46.0); HGB 12.1 g/dL (11.2-15.7); Immature Grans % 0.4 %; MCHC 29.4 % (32.0-36.0); MCV 92 fL (80-95); MPV 10.8 fL (8.0-11.0); Monocytes % 12.6 %; Neutrophils % 47.2 %; Platelet Count 168 10^3/uL (130-400); RBC 4.48 10^6/uL (3.93-5.22); RDW 15.6 % (11.7-14.6); RDW-SD 52.4 fL; WBC 4.94 10^3/uL (4.4-10.8)
[2024-12-27 07:59] LABS: Anion Gap 1.2 mmol/L (3-11); BUN 17 mg/dL (7-18); CO2 35.8 mmol/L (21.0-32.0); CREATININE 0.8 mg/dL (0.55-1.02); Calcium 8.9 mg/dL (8.5-10.1); Chloride 102 mmol/L (98-107); Estimated GFR 83.26 (mL/min/1.73m2); Glucose 118 mg/dL (74-106); Magnesium 1.7 mg/dL (1.8-2.4); Potassium 4.3 mmol/L (3.5-5.1); Sodium 139 mmol/L (136-145)
--- NOTE | 2024-12-27 08:26 | PDOC.CMPRO ---
Date of service: 12/27/24 Time of Service: 08:26 Care Management Progress Note Progress Note Text Progress Note Text: Manasa was awake and lying in bed when CM met with her. She is pleasant and easily engages in conversation. [facility] been following and the plan was to transfer pending bed availability is no longer needed; per provider, she does not have cellulites or osteo and debridement is no longer needed. Manasa is agreeable to discharge home with outpatient follow up. Manasa drives and does not feel [facility] services will be needed; PT and wound consults are pending, CM will follow. Discharge Potential Discharge Needs: PCP F/U Appt Anticipated Barriers to Discharge: None Identified Patient/Family Education Needs: Review discharge instructions, discuss Ask Me Three Transportation: Private vehicle Plan: Transfer to tertiary care is no longer needed. Manasa is not homebound and would prefer clinic visits over home visits, if coordination is possible, consults are pending (wound and PT). Anticipate, Manasa will discharge home via private vehicle when medically ready for discharge. Manasa will follow up with her PCP and discharge plan of care as directed. CM will continue to follow. Social Determinants of Health Screening Social Determinants of health last assessed in clinic: 12/27/24 Will the Patient Participate in the Screening?: Yes Do you worry about having a steady place to live?: yes What is your living situation today?: I have housing today, but am worried about losing it Problems where you live: no known problems In the past 12 months, have you had to go without electric, gas, oil or water in your home?: no 1. Within the past 12 months, we worried whether our food would run out before we got money to buy more.: Never true 2. Within the past 12 months, the food we bought just didn't last and we didn't have money to get more.: Never true Has lack of transportation kept you from medical appointments or from doing things needed for daily living?: no Has anyone in your life made you feel unsafe or unsupported?: no How hard is it for you to pay for the very basics like food, housing, medical care, and heating? Would you say it is:: Not hard at all Do you want help finding or keeping work or a job?: I do not need or want help If for any reason you need help with day-to-day activities such as bathing, preparing meals, shopping, managing finances, etc., do you get the help you need?: I get all the help I need How often do you feel lonely or isolated from those around you?: Often Do you speak a language other than Sierra Leonean at home?: No Does the patient want assistance with any of the above?: No Health Related Social Needs Health related social needs: housing instability, housed, with risk of homelessness (Z59.811) and feeling lonely/isolated (Z60.8) Health related social needs details: pipoley as getting older
--- NOTE | 2024-12-27 09:10 | W.PM.PROGNOT ---
Date of Service Date of service: 12/27/24 Time of Service: 13:00 Assessment and Plan Assessment and plan (1) Cellulitis of right ankle: Status: Acute Assessment and plan: -afebrile with normal WBCs, will check CRP again tomorrow -there is a large ulcer lateral RLE - not bleeding, good granulation -CT does not conclusively show osteomyelitis, MRI No evidence of osteomyelitis. Soft tissue wound and significant edema. No evidence of abscess - ortho who have accepted her for transfer called and we reviewed, they now do not feel she needs to be transferred and can receive care she needs here - surgical consult and wound care consult ordered; patient made aware that transfer is off. - continue vanc with dosing per pharmacy - (2) Chronic pain: Status: Chronic Assessment and plan: -continue usual medication regimen (3) HIV positive: Status: Chronic Assessment and plan: -10/03 labs with undectable viral load, CD 4 low -followed by ID -continue usual medications, pt has them with her (4) Hypertension: Status: Chronic Assessment and plan: -continue amlodipine, HCTZ and metoprolol -also on torsemide presumably for LE edema, will hold for now (5) Morbid obesity: Status: Chronic Assessment and plan: -wt of 163 kg BMI 63.8 (6) Mild intermittent asthma: Status: Chronic Assessment and plan: -prn albuterol (7) Anxiety: Status: Chronic Assessment and plan: Lorazepam oral prn Subjective Subjective Patient reports: no new complaints, feels better, tolerating liquids well, tolerating a regular diet, voiding w/o difficulty and afebrile; denies diarrhea, nausea or shortness of breath Interval history since last seen: Manasa is feeling better. Exam Const General: no acute distress Nutritional Appearance: obese Resp Auscultation: clear to auscultation bilaterally Cardio Rate: regular rate Rhythm: regular rhythm Heart Sounds: S1 normal and S2 normal GI Palpation: soft Auscultation: normal bowel sounds Skin Lesions: lesion noted (large ulcer lateral RLE) Extrem Right lower extremity: edema (thigh edematous) Psych Appearance: grossly normal Affect: anxious affect Objective Last Vital Signs Temp 37.4 C 12/27/24 07:30 Pulse 84 12/27/24 07:30 Resp 18 12/27/24 07:30 BP 146/55 H 05/21/25 07:30 Pulse Ox 89 L 12/27/24 07:30 Laboratory Results - last 24 hr 12/27/24 07:05 WBC 4.94 RBC 4.48 Hgb 12.1 Hct 41.1 MCV 92 MCH 27.0 MCHC 29.4 L RDW 15.6 H Plt Count 168 MPV 10.8 Immature Gran % 0.4 Neutrophils % 47.2 Lymphocytes % 37.0 Monocytes % 12.6 Eosinophils % 2.2 Basophils % 0.6 Nucleated RBC % 0.0 Absolute Neutrophils 2.33 Absolute Lymphocytes 1.83 Absolute Monocytes 0.62 Absolute Eosinophils 0.11 Absolute Basophils 0.03 Sodium 139 Potassium 4.3 Chloride 102 Carbon Dioxide 35.8 H Anion Gap 1.2 L BUN 17 Creatinine 0.8 Est GFR (CKD-EPI 2020) 83.26 Glucose 118 H Calcium 8.9 Magnesium 1.7 L PAWSS Have you Been Recently Intoxicated or Drunk Within the Last 30 days?: No Have you Ever Experienced Previous Episodes of Alcohol Withdrawal?: No Have you ever Experienced Withdrawal Seizures?: No Have you ever Experienced Delirium Tremens(DT)s?: No Have you ever undergone Alcohol Rehabilitation Treatment (i.e, inpt ot outpatient treatment programs)?: No Have you ever Experienced Blackouts?: No Have you ever Combined Alcohol with other Downers within the last 90 days?: No Have you ever Combined Alcohol with any other Substance of Abuse during the last 90 days?: No Positive Blood Alcohol level on Presentation? [PCS.BAL]: No Evidence of Increased Autonomic Activity (i.e. HR>120, tremor, sweating, agitation, nausea)?: No Result: 0 Time Spent with Patient Time Spent with Patient: 35-49 minutes Time was spent: preparing to see the patient(eg.review tests), ordering medications,tests, procedures, referring, communicating with other health career development facilitator, indepentently interpreting results, counseling the patient and care coordination
[2024-12-27] MEDS: hydroCHLOROthiazide 25 MG TAB 37.5 MG PO (09:29)
[2024-12-27] MEDS: Acetaminophen 325 MG TAB 650 MG PO ×3 (09:29→20:47)
[2024-12-27] MEDS: Aspirin 325 MG TAB PO (09:29)
[2024-12-27] MEDS: Metoprolol CR 50 MG TABCR PO (09:30)
[2024-12-27] MEDS: MAGNESIUM SULFATE 1 GM/100 ML BAG IV_INF (09:30)
[2024-12-27] MEDS: amLODIPine 5 MG TAB PO (09:30)
[2024-12-27] MEDS: Normal Saline Flush 10 ML SYR IVP ×2 (09:31→20:48)
[2024-12-27 12:56] LABS: Vancomycin, Random 26.5 ug/mL
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
[2024-12-27] MEDS: VANCOMYCIN/WATER (PEG) 1.5 GM/300 ML BAG IV (16:30)
[2024-12-27 19:47] VITALS: BP 143/75; PULSE 74; RESP 18; TEMP 36.3; O2SAT 93
[2024-12-27] MEDS: Enoxaparin 40 MG/0.4 ML SYR SC (20:47)
[2024-12-27] MEDS: Ibuprofen 600 MG TAB PO (23:17)
[2024-12-28 03:17] VITALS: O2SAT 91
[2024-12-28] MEDS: VANCOMYCIN/WATER (PEG) 1.5 GM/300 ML BAG IV (04:10)
[2024-12-28] MEDS: Normal Saline Flush 10 ML SYR IVP ×4 (04:11→21:06)
[2024-12-28] MEDS: LORazepam 1 MG TAB PO (04:30)
[2024-12-28] MEDS: Ibuprofen 600 MG TAB PO (04:54)
[2024-12-28 06:55] LABS: Abs Immature Grans 0.01 10^3/uL (0.0-0.06); Absolute Basophil Count 0.02 10^3/uL (0.0-0.2); Absolute Eosinophil Count 0.11 10^3/uL (0.0-0.7); Absolute Lymphocyte Count 1.79 10^3/uL (1.2-3.4); Absolute Monocyte Count 0.54 10^3/uL (0.1-0.8); Absolute Neutrophil Count 2.05 10^3/uL (1.2-6.7); Basophils % 0.4 %; Eosinophils % 2.4 %; HCT 41.2 % (36.0-46.0); HGB 11.7 g/dL (11.2-15.7); Immature Grans % 0.2 %; Lymphocytes % 39.6 %; MCH 26.5 pg (27.0-33.0); MCHC 28.4 % (32.0-36.0); MCV 93 fL (80-95); MPV 10.3 fL (8.0-11.0); Monocytes % 11.9 %; Neutrophils % 45.5 %; Platelet Count 162 10^3/uL (130-400); RBC 4.41 10^6/uL (3.93-5.22); RDW 15.8 % (11.7-14.6); RDW-SD 54.3 fL; WBC 4.52 10^3/uL (4.4-10.8)
[2024-12-28 07:28] LABS: BUN 22 mg/dL (7-18); C-Reactive Protein 1.52 mg/dL (<or=0.5); CREATININE 0.9 mg/dL (0.55-1.02); Chloride 103 mmol/L (98-107); Estimated GFR 72.28 (mL/min/1.73m2); Glucose 133 mg/dL (74-106); Magnesium 1.9 mg/dL (1.8-2.4); Potassium 4.3 mmol/L (3.5-5.1); Sodium 141 mmol/L (136-145)
[2024-12-28 08:12] VITALS: BP 131/71; BP 135/85; BP 153/90; PULSE 67; PULSE 74; RESP 25; TEMP 36.3; O2SAT 82
[2024-12-28 08:45] VITALS: O2SAT 91
--- NOTE | 2024-12-28 08:51 | PDOC.CMDIS ---
Date of service: 12/28/24 Time of Service: 08:51 LACE Index Scoring Tool Questions: Length of Stay (in days): 4 - 6 Was the patient admitted via the E.D.?: Yes E.D. Visits: 1 Answers: Total Score: 8 Risk of Readmission: Low Risk Care Management Discharge SDOH Health Related Social Needs: Health related social needs housing instability, housed, with risk of homelessness (Z59.811), feeling lonely/isolated (Z60.8) Health related social needs details lonley as getting older Health related social needs details: lonley as getting older
[2024-12-28 08:58] VITALS: RESP 22; O2SAT 93
[2024-12-28] MEDS: hydroCHLOROthiazide 25 MG TAB 37.5 MG PO (08:59)
[2024-12-28] MEDS: amLODIPine 5 MG TAB PO (08:59)
[2024-12-28] MEDS: Metoprolol CR 50 MG TABCR PO (09:00)
[2024-12-28] MEDS: Acetaminophen 325 MG TAB 650 MG PO ×4 (09:00→20:09)
[2024-12-28] MEDS: Aspirin 325 MG TAB PO (09:00)
--- NOTE | 2024-12-28 09:43 | W.PM.PROGNOT ---
Date of Service Date of service: 12/28/24 Time of Service: 11:57 Assessment and Plan Assessment and plan (1) Cellulitis of right ankle: Status: Acute Assessment and plan: -afebrile with normal WBCs, CRP 1.52 from 2.35 -Large ulcer lateral RLE - serous drainage -not bleeding, good granulation -Wound consult pending -MRI No evidence of osteomyelitis or abscess - ortho no longer recommend transfer- can receive care she needs here - patient aware - Surgical consult and wound care consult ordered - Transtioning from [facility] Bactrim - Blood Cx negative X 72 hours - (2) Chronic pain: Status: Chronic Assessment and plan: -Ongoing home medication regimen (3) Hypoxic respiratory failure: Status: Acute Assessment and plan: New oxygen requirement of 2l/min via [place] On torsemide at home- not reordered during stay RLL crackles heard Lasix 40 mg IVP then ongoing trial to wean oxygen (4) HIV positive: Status: Chronic Assessment and plan: as previously noted -10/03 labs with undectable viral load, CD 4 low -followed by ID -continue usual medications, as per own meds (5) Hypertension: Status: Chronic Assessment and plan: -Ongoing amlodipine, HCTZ and metoprolol -Torsemide presumably for LE edema, was held - might resume in AM as per Point 3 (6) Morbid obesity: Status: Chronic Assessment and plan: -wt of 163 kg BMI 63.8 Counseled re : weight management and oriented to discuss GLP-1 inhibitors with PCP Nutrition consult (7) Mild intermittent asthma: Status: Chronic Assessment and plan: -continue prn albuterol (8) Anxiety: Status: Chronic Assessment and plan: Ongoing Lorazepam oral prn Discussed with Dr. Denis Exam Const General: cooperative and disheveled Nutritional Appearance: obese Resp Auscultation: crackles on the right at the base and diminished lung sounds on the left in the lower lung ambriz Cardio Rate: regular rate Rhythm: regular rhythm Heart Sounds: S1 normal and S2 normal Pulses: brachial pulses present and dorsalis pedis present GI Inspection: large pannus and obesity Palpation: soft Auscultation: normal bowel sounds Skin General skin exam: other (right lower ext with small serous lesion) Lesions: lesion noted (large ulcer lateral RLE) Neuro General: patient alert, patient awake, patient oriented x3 and no focal motor deficits Extrem General: normal exam except as noted, no pedal edema (right ) and no calf tenderness Right lower extremity: edema Details: pitting, 2+ and 3+ and foot Details: normal capillary refill and normal to inspection Psych Appearance: grossly normal Affect: anxious affect Objective Last Vital Signs Temp 36.3 C L 12/28/24 08:12 Pulse 74 12/28/24 08:12 Resp 22 12/28/24 08:58 BP 131/71 12/28/24 08:12 Pulse Ox 93 12/28/24 08:58 Laboratory Results - last 24 hr 12/27/24 12/28/24 12:25 06:42 WBC 4.52 RBC 4.41 Hgb 11.7 Hct 41.2 MCV 93 MCH 26.5 L MCHC 28.4 L RDW 15.8 H Plt Count 162 MPV 10.3 Immature Gran % 0.2 Neutrophils % 45.5 Lymphocytes % 39.6 Monocytes % 11.9 Eosinophils % 2.4 Basophils % 0.4 Nucleated RBC % 0.0 Absolute Neutrophils 2.05 Absolute Lymphocytes 1.79 Absolute Monocytes 0.54 Absolute Eosinophils 0.11 Absolute Basophils 0.02 Sodium 141 Potassium 4.3 Chloride 103 Carbon Dioxide 39.0 H Anion Gap -1.0 L BUN 22 H Creatinine 0.9 Est GFR (CKD-EPI 2020) 72.28 Glucose 133 H Calcium 9.0 Magnesium 1.9 C-Reactive Protein 1.52 H Random Vancomycin 26.5 PAWSS Have you Been Recently Intoxicated or Drunk Within the Last 30 days?: No Have you Ever Experienced Previous Episodes of Alcohol Withdrawal?: No Have you ever Experienced Withdrawal Seizures?: No Have you ever Experienced Delirium Tremens(DT)s?: No Have you ever undergone Alcohol Rehabilitation Treatment (i.e, inpt ot outpatient treatment programs)?: No Have you ever Experienced Blackouts?: No Have you ever Combined Alcohol with other Downers within the last 90 days?: No Have you ever Combined Alcohol with any other Substance of Abuse during the last 90 days?: No Positive Blood Alcohol level on Presentation? [PCS.BAL]: No Evidence of Increased Autonomic Activity (i.e. HR>120, tremor, sweating, agitation, nausea)?: No Result: 0 Time Spent with Patient Time Spent with Patient: >50 minutes Time was spent: preparing to see the patient(eg.review tests), obtaining and/or reviewing separately otained hiistory, ordering medications,tests, procedures, referring, communicating with other health care transition manager, indepentently interpreting results, counseling the patient and care coordination
--- NOTE | 2024-12-28 09:57 | PDOC.CMPRO ---
Date of service: 12/28/24 Time of Service: 09:57 Care Management Progress Note Progress Note Text Progress Note Text: Manasa was awake and lying in bed when CM met with her; she was wiping tears from her eyes and feeling overwhelmed by everything that is going on. Manasa verbalizes that she would like to better understand her plan of care and be informed when changes are made. Manasa suffered a TBI in 2019 and asks that information be presented to her slowly, so she has extra time to process. Her primary nurse Emily and Hospitalist Patrica joined the conversation at the perfect time and Manasa was able to share her concerns surrounding her TBI and the impact it's made on her ability to understand and process information. The hospitalist was very receptive melissa- reviewed her assessment and plan and Manasa was able to verbalize understanding and appeared more relaxed. Priscilla is planning to discharge home when medically ready for discharge. PT, surgical and wound consults are pending. Manasa's community vp ad products and planning is no longer in practice and pt expressed interest in finding a new therapist; on the other hand she is hesitant because starting over rekindles past events and its very hard for her. CM suggested that she talk with her PCP about seeing their Behavioral Health practitioner. CM provided pt with a prayer shawl, adult coloring book and puzzle book to help her pass the time and will continue to follow her admission to [facility]. Discharge Potential Discharge Needs: PCP F/U Appt and Other (Behavioral Health Specialist) Anticipated Barriers to Discharge: None Identified Patient/Family Education Needs: Review discharge instructions, discuss Ask Me Three Transportation: Private vehicle Plan: Manasa has a new supplemental O2 requirement and is being diuresed. Manasa is planning to discharge home on PO abx medically ready for discharge. Manasa will transport via private vehicle (located in the parking lot) and follow up with her PCP and discharge plan of care as directed. Manasa is not homebound and would prefer clinic visits over home visits, if coordination is possible, consults are pending (wound and PT). PCP referral to their Behavioral Health Specialist may be beneficial after discharge. CM will continue to follow. Social Determinants of Health Screening Social Determinants of health last assessed in clinic: 12/28/24 Will the Patient Participate in the Screening?: Yes Do you worry about having a steady place to live?: yes What is your living situation today?: I have housing today, but am worried about losing it Problems where you live: no known problems In the past 12 months, have you had to go without electric, gas, oil or water in your home?: no 1. Within the past 12 months, we worried whether our food would run out before we got money to buy more.: Never true 2. Within the past 12 months, the food we bought just didn't last and we didn't have money to get more.: Never true Has lack of transportation kept you from medical appointments or from doing things needed for daily living?: no Has anyone in your life made you feel unsafe or unsupported?: no How hard is it for you to pay for the very basics like food, housing, medical care, and heating? Would you say it is:: Not hard at all Do you want help finding or keeping work or a job?: I do not need or want help If for any reason you need help with day-to-day activities such as bathing, preparing meals, shopping, managing finances, etc., do you get the help you need?: I get all the help I need How often do you feel lonely or isolated from those around you?: Often Do you speak a language other than Swedish at home?: No Does the patient want assistance with any of the above?: No Health Related Social Needs Health related social needs: housing instability, housed, with risk of homelessness (Z59.811) and feeling lonely/isolated (Z60.8) Health related social needs details: lonley as getting older
[2024-12-28 10:26] LABS: BE (Venous) 11 mmol/L (-2-3); HCO3 (Venous) 36 mmol/L (23-28); O2 Sat (Venous) 97 %; TCO2 (Venous) 33 mmol/L (24-29); pCO2 (Venous) 58 mmHg (41-51); pO2 (Venous) 83 mmHg
[2024-12-28 13:17] LABS: Vancomycin, Random 23.1 ug/mL
[2024-12-28] MEDS: Furosemide 20 MG/2 ML VIAL 40 MG IVP (13:44)
[2024-12-28] MEDS: Sulfameth/Trimeth DS TAB 1 TAB PO ×2 (14:35→21:06)
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
[2024-12-28 19:57] VITALS: BP 137/66; PULSE 76; RESP 22; TEMP 36.5; O2SAT 94
[2024-12-28] MEDS: Enoxaparin 40 MG/0.4 ML SYR SC (21:06)
[2024-12-28] MEDS: Refresh PLUS Eye Drops 0.4ml OU (21:06)
[2024-12-29] MEDS: Benzonatate 100 MG CAP PO (00:39)
[2024-12-29] MEDS: LORazepam 1 MG TAB PO ×2 (00:39→11:24)
[2024-12-29] MEDS: Ibuprofen 600 MG TAB PO (00:40)
[2024-12-29] MEDS: Refresh PLUS Eye Drops 0.4ml OU (00:41)
[2024-12-29 06:26] LABS: Abs Immature Grans 0.01 10^3/uL (0.0-0.06); Absolute Basophil Count 0.02 10^3/uL (0.0-0.2); Absolute Eosinophil Count 0.13 10^3/uL (0.0-0.7); Absolute Lymphocyte Count 2.07 10^3/uL (1.2-3.4); Absolute Neutrophil Count 2.16 10^3/uL (1.2-6.7); Basophils % 0.4 %; Eosinophils % 2.7 %; HCT 39.4 % (36.0-46.0); HGB 11.5 g/dL (11.2-15.7); Immature Grans % 0.2 %; Lymphocytes % 42.3 %; MCH 26.8 pg (27.0-33.0); MCHC 29.2 % (32.0-36.0); MCV 92 fL (80-95); MPV 10.5 fL (8.0-11.0); Monocytes % 10.2 %; Neutrophils % 44.2 %; Platelet Count 162 10^3/uL (130-400); RBC 4.29 10^6/uL (3.93-5.22); RDW 15.7 % (11.7-14.6); WBC 4.89 10^3/uL (4.4-10.8)
[2024-12-29 06:40] LABS: Anion Gap -0.2 mmol/L (3-11); BUN 21 mg/dL (7-18); CO2 40.2 mmol/L (21.0-32.0); CREATININE 0.9 mg/dL (0.55-1.02); Calcium 9.1 mg/dL (8.5-10.1); Chloride 102 mmol/L (98-107); Estimated GFR 72.28 (mL/min/1.73m2); Glucose 113 mg/dL (74-106); Magnesium 1.9 mg/dL (1.8-2.4); Potassium 3.9 mmol/L (3.5-5.1); Sodium 142 mmol/L (136-145)
[2024-12-29 08:29] VITALS: BP 122/66; PULSE 67; RESP 20; TEMP 36.2; O2SAT 95
[2024-12-29] MEDS: hydroCHLOROthiazide 25 MG TAB 37.5 MG PO (08:41)
[2024-12-29] MEDS: Acetaminophen 325 MG TAB 650 MG PO ×2 (08:43→12:41)
[2024-12-29] MEDS: Aspirin 325 MG TAB PO (08:44)
[2024-12-29] MEDS: Metoprolol CR 50 MG TABCR PO (08:45)
[2024-12-29] MEDS: Sulfameth/Trimeth DS TAB 1 TAB PO (08:45)
[2024-12-29] MEDS: amLODIPine 5 MG TAB PO (08:45)
[2024-12-29] MEDS: Normal Saline Flush 10 ML SYR IVP (08:48)
--- NOTE | 2024-12-29 09:12 | CMDISCH_ITS ---
Date of service: 12/29/24 Time of Service: 09:12 LACE Index Scoring Tool Questions: Length of Stay (in days): 4 - 6 Was the patient admitted via the E.D.?: Yes Comorbidities: Cerebrovascular Disease (TBI) and AIDS E.D. Visits: 1 Answers: Total Score: 13 Risk of Readmission: High Risk Care Management Discharge Plan Reason for Hospitalization: Leg Ulcer Discharge Plan: Manasa is discharged home via private vehicle with her daughter. She will follow up with her [facility]CP[facility] and discharge plan of care as directed. At this time, Manasa is homebound and New [facility] RN/PT/ROLL ON WORKER services are ordered. Manasa may benefit from support with her Chronic Care needs after discharge, CM notified CCC RN at her PCP office for support. Patient/Family Education Needs: Review discharge instructions, limitations and plan to follow up after discharge. Discuss ask me three and goals of self care. Services Needed at Discharge: Home Health Care Services (New [facility] RN/PT/ROLL ON WORKER) SDOH Health Related Social Needs: Health related social needs housing instability, house d, with risk of homelessness (Z59.811), feeling lonely/isolated (Z60.8) Health related social needs details lonley as getting older Health related social needs details: lonanum as getting older Care Management Referrals: PCP CCC (CM notified CCC at [facility])
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
--- NOTE | 2024-12-29 11:55 | W.NUTCONSULT ---
Date of service: 12/29/24 Time of Service: 11:55 Nutritional Consult ASSESSMENT: received request for nutrition consult regarding High BMI (>60) and current LE wound. Manasa was finishing up with PT and case mgt was also in room - kept my visit brief due to Manasa needing communications presented slowly d/t hx of TBI and also to avoid overwhelming her with too many people in the room. She is currently extremely anxious as she is learning the plan is for her to discharge today and she reports it's happening too fast for her. In addition, I did meet with pt on 12/25 for initial assessment. She was taking [employer] food (2oz liquid protein supp with L-citrulline) for wound healing. Stock ran out and transitioned to gelatein protein supplement which she did not like the flavor - will try others. Her intake has been fair. She is aware that weight reduction would benefit many of her chronic conditions and still has my contact info so she can call for outpatient support in this goal - told her we could do telephonic/telehealth visit if easier for her. NUTRITIONAL DIAGNOSIS: class III obesity per current BMI. Increased nutrition needs for wound healing - protein, zinc, vitamin D, vitamin C INTERVENTION: Would suggest vitamin C 500mg BID, 220mg zinc sulfat and 4000IU vitamin D daily for wound healing and nutritional support. Suggested to Manasa goal of 100g protein per day at minimum for lean animal sources, plant proteins and whey and/or collagen protein powder if it helps keep protein in take consistently adequate. Will work with marni as often as she desires to help construct a menu plan that work for her and help with her goal to lose weight MONITORING AND EVALUATION: will monitor and be available for additional education if needed/desired before dicharge Time Spent in Nutritional Counseling and Treatment: 10 min
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
--- NOTE | 2024-12-29 13:11 | NUR.NOTE ---
Nursing Note: Reviewed documentation by Nirmala Romo, student REGRINDER. Agree with assessment.
[2024-12-29 13:14] LABS: NT-proBNP 157 pg/mL (<300)
--- NOTE | 2024-12-29 13:57 | PDOC.CMPRO ---
Date of service: 12/29/24 Time of Service: 13:57 Care Management Progress Note Progress Note Text Progress Note Text: Manasa is back on RA, continues to have intermittent need for supplemental O2 requirement and was given another dose of IV lasix today. PT/RT will continue to evaluation appropriateness for discharge, per Hospitalist. Manasa less anxious today, and shares with CM that she is reluctant to discharge because she cant pin point why but she 'feels off shortly after she took a dose of ativan for anxiety. Her concerns were addressed by RN and the hospitalist. Manasa also had a wound consult and the plan moving forward will be to follow up with [facility] RN/PT/[employer], then outpatient follow up for her wound will be provided at the surgical office. Discharge Potential Discharge Needs: PCP F/U Appt Anticipated Barriers to Discharge: None Identified Patient/Family Education Needs: Review discharge instructions, discuss Ask Me Three Transportation: Private vehicle Plan: Manasa is planning to discharge home on PO abx and New [facility] RN/PT/[employer] services medically ready for discharge. Manasa will transport via private vehicle with her daughter and follow up with her PCP and discharge plan of care as directed. PCP referral to their Behavioral Health Specialist may be beneficial after discharge. CM will continue to follow. Social Determinants of Health Screening Social Determinants of health last assessed in clinic: 12/29/24 Will the Patient Participate in the Screening?: Yes Do you worry about having a steady place to live?: yes What is your living situation today?: I have housing today, but am worried about losing it Problems where you live: no known problems In the past 12 months, have you had to go without electric, gas, oil or water in your home?: no 1. Within the past 12 months, we worried whether our food would run out before we got money to buy more.: Never true 2. Within the past 12 months, the food we bought just didn't last and we didn't have money to get more.: Never true Has lack of transportation kept you from medical appointments or from doing things needed for daily living?: no Has anyone in your life made you feel unsafe or unsupported?: no How hard is it for you to pay for the very basics like food, housing, medical care, and heating? Would you say it is:: Not hard at all Do you want help finding or keeping work or a job?: I do not need or want help If for any reason you need help with day-to-day activities such as bathing, preparing meals, shopping, managing finances, etc., do you get the help you need?: I get all the help I need How often do you feel lonely or isolated from those around you?: Often Do you speak a language other than Croatian at home?: No Does the patient want assistance with any of the above?: No Health Related Social Needs Health related social needs: housing instability, housed, with risk of homelessness (Z59.811) and feeling lonely/isolated (Z60.8) Health related social needs details: pipoley as getting older
[2024-12-29] MEDS: Furosemide 40 MG/4 ML VIAL IVP (14:11)
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
--- NOTE | 2024-12-29 15:00 | PT.INTREAT ---
PT Notes Visit Reasons: Ulcer, Cellulitis Physical Therapy Inpatient Treatment Note Date: 12/29/2024 Precautions: Fall. Standard. Activity as tolerated Subjective: Much more calm this afternoon. Denied headache, chest pain, and lightheadedness throughout session. Accepted apology of PT for probably contributing to her anxiety early on and her feeling of being rushed. Agreeable to using the front-wheeled walker for hallway ambulation. Objective: General Observation: Patient resting in bed. High BMI. Dressing to R ankle. Mental Status: A&O x3. Appeared anxiuos as above Pain: Headache as above Bed Mobility/Transfers: Sit to supine independent Supine to sit: independent Sit to stand: independent but with shortness of breath that resolved with rest Stand to sit: independent but with shortness of breath that resolved with rest Bed to bathroom: independent but with shortness of breath that resolved with rest bathroom to bed: independent but with shortness of breath that resolved with rest Gait: 250 feet with front-wheeled walker with minimal SOB. Supervision only by PT for directions. 2 brief standing rests made. No report of headache, chest pain, and lightheadedness throughout the walk. Balance: Static Sitting: Normal Dynamic Sitting: Normal Static Standing: Good Dynamic Standing: Fair Assessment: Much better disposition this afternoon. Use of walker for longer distances certainly minimized shortness of breath and fatigue. Patient will benefit from HH PT for energy conservation techniques, fall reduction, and progressing mobility level to community ambulation without device. Discharge Plan DISCHARGE RECOMMENDATIONS: Home with HH PT TREATMENT CODE/TIME: 95445 x 21 minutes for 1 unit (15:00-15:21).
--- NOTE | 2024-12-29 16:16 | PDOC.HHF2F_ITS ---
Home Health Referral Home Health Orders Clinical synopsis of why skilled professionals are needed: 64 yo female with history of TBI, anxiety, HIV,HTN, splenic artery aneurysm, asthma, obesity and R ankle injury with ORIF with subsequent [facility] wound clinic management presented to the ED on 12/24/24 for evaluation maggots infestation to her RLE ulcer after her dressing fell off.Work-up was negative for leukocytosis, fever, and lactate. Magnesium at 1.3 and potassium at 3.2 were supplemented; CRP at 1.38. CT of the lower extremity was positive for lucency around orthopedic hardware in the calcaneus but negative for negative for osteomyelitis, abscess which was confirmed by MRI. [facility] orthopedic service were consulted and patient was initially accepted for transfer by Dr. Monroe.The patient was admitted to the medical surgical service for antibiotics and further wound management. After reviewing images and file orthopedics services at [facility] declined transfer. Blood cultures were negative IV antibiotics were transitioned to Bactrim DS. Status post discussion with surgeon Dr. Rey Jules, the patient will be seen in the office as an outpatient next week. POCUS completed during stay showed no significant change from previous echocardiogram in 2020, no pleural effusion, significant B-lines or air bronchograms. The patient has some exercise intolerance but does not display hypoxia at rest. Wound care consultation completed with dressing ordered: Treatment/Dressing Change Topicals/Ointments: Medihoney Cleanse With: Other (Wound cleanser) Dressing Types: Mepilex w/Border (5x5 super asorbent ) Nutrition Education Reviewed Nutrition Education: Yes Note: PT states that she plans to increase her lean protein and hs ordered some protein supplements online to salvager helper in healing her wound. Recomendation Recomendation:: RLE Ulcer Remove old dressing Cleanse area with wound cleanser allow to dwell for 2 minuites Pat dry with gauze Apply a thin layer of skin prep to periwound Apply medihoney to wound bed Apply 5x5 border foam dressing to wound Change every other day or PRN if soiled. On the day of discharge patient was hemodynamically stable and will be discharged home with home health nursing for compliance with new medicine, physical therapy, and the emergency medical technician/driver to assist her in managing her outpatient care and needs. The patient will need a follow-up with her primary care practitioner within 7 days of discharge. Recommendations for follow-up with primary care practitioner: Initiation of GLP-1 inhibitors and weight management Referral with pulmonology consideration Follow-up on PFT testing outpatient Discussed with Dr. Denis Registered Nurse: Check all that apply Instruct on new or changed medication(s)/assess compliance: Ordered Assess for exacerbation of medical condition, instruct patient/caregivers on signs and symptoms to report for early detection: Ordered Assess wound for signs and symptoms of infection, instruct on wound care and/or provide skilled wound care consisting of: RLE ulcer Physical Therapist: Check all that apply Increase strength & endurance for safe mobility at home: Ordered To design/establish home maintenance program: Ordered Fall reduction therapy program for patient with history of frequent falls: Ordered Home safety evaluation and teaching/gait training including stair management (if applicable): Ordered Better Breathing Program: Ordered Animal Nutrition Consultant: Assist with community resources: Ordered Assist with fpc care planning: Ordered Home Bound Status Requires the aid of supportive device (check all that apply): Walker Encounter Date and Reason: I certify that a FTF encounter for this patient was performed on December 29, 2024 and that such encounter was related to the primary reason the patient requires home health services. The encounter was conducted in the following manner: * By me as the certifying physician, BIOLOGICAL SCIENCE TECHNICIAN FISH, PA or * By an inpatient physician, BIOLOGICAL SCIENCE TECHNICIAN FISH or PA during an inpatient stay who communicated findings to me, Certification And Authentication I certify that I composed the above information based on my clinical judgment relating to this patient's medical condition and, if applicable, clinical findings communicated to me by the NPP or inpatient physician who performed the FTF encounter. Name of Provider that will be monitoring home health services: Juan Miguel Bennett
--- NOTE | 2024-12-29 16:32 | CHAPLAIN ---
Manasa said she feels off today, and was told that she'll be discharged. She has concerns about how she will received wound care once she is discharged and planned to discuss this with her acute care physician.
--- NOTE | 2024-12-29 16:33 | W.POCUS ---
Pocus Exam Limited Cardiac Exam DATE OF EXAM: 12/29/24 TIME OF EXAM: 14:45 PROVIDER THAT PERFORMED THE STUDY: Phillip Carlos IS THIS A REPEAT EXAM DURING THIS ENCOUNTER: no REASON FOR EXAM: Hypoxia VISUALIZED STRUCTURES: four chambers, left atrium, left ventricle, LVOT, right atrium, right ventricle, mitral valve and IVC VIEW OBTAINED: Apical 4-Chamber, Parasternal long-axis, Parasternal short-axis and Subxiphoid PERTINENT FINDINGS/IMPRESSION: No LV dysfunction, No pericardial effusion, No plethoric IVC and No RV dilation INCIDENTAL FINDINGS: ongoing mild mitral stenosis as seen on echocardiogram from 2020 Exam complete Limited Thoracic Lung Exam DATE OF EXAM: 12/29/24 TIME OF EXAM: 14:45 PROVIDER THAT PERFORMED THE STUDY: Phillip Carlos IS THIS A REPEAT EXAM DURING THIS ENCOUNTER: No REASON FOR EXAM: Hypoxia VISUALIZED STRUCTURES: right anterior, left anterior, right posterior and left posterior PERTINENT FINDINGS/IMPRESSION: B-lines/right side (minimal), No apparent abnormalities and Other (reduced bibasilar expansion) impression: No acute findings ; no B-Lines/left side, no pneumonia noted, no pleural effusion on the left and no pleural effusion on the right DIFFERENTIAL DIAGNOSES: hypoventilation syndrome due to obesity , pneumonia r/o, pleural effusion r/o,
== END 2024-12-29 17:13 | disposition home health service (06) | DRG 603 ==
LOC: ER 19:33 → MS 22:19
PROVIDERS: Nurse Practitioner Family; Registered Nurse Emergency; Admitting Provider Family Medicine; Emergency Provider Physician Assistant; PCP Nurse Practitioner Family; Responsible Provider Nurse Practitioner Acute Care; Visit Provider Family Medicine
DX: L03.115 Cellulitis of right lower limb (principal); Z68.44 Body mass index [BMI] 60.0-69.9, adult; L97.218 Non-pressure chronic ulcer of right calf with other specified severity; G89.29 Other chronic pain; Z21 Asymptomatic human immunodeficiency virus [HIV] infection status; I10 Essential (primary) hypertension; E66.01 Morbid (severe) obesity due to excess calories; J45.20 Mild intermittent asthma, uncomplicated; I72.8 Aneurysm of other specified arteries; M15.9 Polyosteoarthritis, unspecified; L65.9 Nonscarring hair loss, unspecified; R26.89 Other abnormalities of gait and mobility; F41.1 Generalized anxiety disorder; R41.3 Other amnesia; F32.A Depression, unspecified; R32 Unspecified urinary incontinence; M51.26 Other intervertebral disc displacement, lumbar region; Z96.643 Presence of artificial hip joint, bilateral; Z87.820 Personal history of traumatic brain injury
CPT/HCPCS: 00123; 36415; 80048; 80053; 82805; 84145; 87040; 87077; 93308; 96365; 96366; 96367; 96375; 97162; 97530; 99285; J1650; 73590; 73701; 73720; 80202; 83605; 83735; 83880; 84703; 85025; 86140; 87070; 87186; 87205; 94640; 94760; 99222; 99232; 99233; 99239; J0696; J1938; J2060; J3370; J3372; J3475; J3490

== ENCOUNTER 2025-01-03 21:07 | Emergency (ER) | payer OTHER, SELFPAY ==
[2025-01-03] VITALS (20 sets, daily range): BP systolic 147–172; BP diastolic 60–89; PULSE 66–93; RESP 13–29; TEMP 36.9; O2SAT 1–95
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
[2025-01-03 22:27] LABS: Abs Immature Grans 0.01 10^3/uL (0.0-0.06); Absolute Basophil Count 0.03 10^3/uL (0.0-0.2); Absolute Eosinophil Count 0.07 10^3/uL (0.0-0.7); Absolute Monocyte Count 0.54 10^3/uL (0.1-0.8); Absolute Neutrophil Count 2.69 10^3/uL (1.2-6.7); Basophils % 0.6 %; Eosinophils % 1.4 %; HCT 41.5 % (36.0-46.0); HGB 12.7 g/dL (11.2-15.7); Immature Grans % 0.2 %; MCH 27.1 pg (27.0-33.0); MCHC 30.6 % (32.0-36.0); MCV 89 fL (80-95); MPV 10.4 fL (8.0-11.0); Monocytes % 11.2 %; Neutrophils % 55.6 %; Platelet Count 217 10^3/uL (130-400); RBC 4.69 10^6/uL (3.93-5.22); RDW 15.9 % (11.7-14.6); RDW-SD 50.9 fL; WBC 4.84 10^3/uL (4.4-10.8)
[2025-01-03 22:29] LABS: ESR 68 mm/hr (0-30)
[2025-01-03 22:43] LABS: ALT 24 U/L (14-59); AST 24 U/L (15-37); Albumin 3.2 g/dL (3.4-5.0); Alkaline Phosphatase 85 U/L (46-116); Anion Gap 3.9 mmol/L (3-11); BUN 28 mg/dL (7-18); Bilirubin, Total 0.4 mg/dL (0.2-1.0); C-Reactive Protein 0.87 mg/dL (<or=0.5); CO2 35.1 mmol/L (21.0-32.0); CREATININE 1.2 mg/dL (0.55-1.02); Calcium 8.9 mg/dL (8.5-10.1); Chloride 100 mmol/L (98-107); Estimated GFR 51.18 (mL/min/1.73m2); Glucose 116 mg/dL (74-106); Magnesium 1.7 mg/dL (1.8-2.4); Potassium 3.8 mmol/L (3.5-5.1); Sodium 139 mmol/L (136-145); Total Protein 8.9 g/dL (6.4-8.2)
[2025-01-03] MEDS: Cephalexin 500 MG CAP, 4 CAPS/BTL PO (23:20)
== END 2025-01-03 23:45 | disposition home or self-care (01) ==
PROVIDERS: Emergency Provider Emergency Medicine; PCP Nurse Practitioner Family
DX: L03.115 Cellulitis of right lower limb (principal); I10 Essential (primary) hypertension; Z79.82 Long term (current) use of aspirin
CPT/HCPCS: 80053; 85652; 99283; 83735; 85025; 86140

== ENCOUNTER 2025-02-26 00:29 | Outpatient (CLI) | payer OTHER, SELFPAY ==
--- NOTE | 2025-02-26 06:45 | DI.NM_ITS ---
APPROVED REPORT Exam: Pharmacologic Patient Location: Out-Patient Room/Bed: Stress Nurse: Jasmin Galeano RN, Linda Vasquez RN Ordering Provider:[employer], Contact Number: [phone] BMI: 64.82 Baseline Rhythm: Sinus Rhythm Indications: CP episode Medical History Medical History: venous insuffiency, chronic wound anxiety, chronic pain, HIV+, HTN, morbid obesity, mild intermittent asthma, osteomyelitis, splenic artery aneurysm, hypotension, depression,MARY, memory difficulities, CHRISTIANA, ambulatory disfunction Cardiac Medications: Albuterol sulfate, amlodipine, aspirin, biktarvy, cyclobenzaprine, prezcobix, hydrochlorothiazide, hydrocodone- homatropine, ipratropium-albuterol, metoprolol succinate, tirzepatide, torsemide, valcyclovir Allergies: clindamycin, bee venom protein, clithromyycin, hallothane, pencillins, amoxicillin, opiods, morphine analogues, diazepam, skintastic Cardiac Risk Factors: family hx, HTN, PVD, obesity Previous Cardiac Procedures: none Pretest Chest Pain Characteristics: No chest pain Exercise History: Sedentary Physical Disabilities: minimally amubatory Lung Sounds: Clear to auscultation Heart Sounds: Regular Stress Test Details Test: Pharmacologic stress testing performed using 0.4 mg of regadenoson per 5 mL given IV over 10 seconds. Reason for pharmacologic stress test: physical limitation. Nuclear Acquisition: Rest Tc-99m/Stress Tc-99m 1 day Rest Isotope: Tc-99m Sestamibi. Dose: 12.0 Date: 02/26/2025 Injection Time: 1045 Stress Isotope: Tc-99m Sestamibi. Dose: 36.0 Date: 02/26/2025 Injection Time: 1125 HR Resting HR Supine: 68 bpm Max Heart Rate (APMHR): 158 bpm Target HR (85% APMHR): 134 bpm Max HR Achieved: 83 bpm % of APMHR: 53 Recovery HR: 75 bpm BP Resting BP Supine: 188/84 mmHg Max BP: 184/88 mmHg Recovery BP: 184/88 mmHg ECG Resting ECG: Sinus Rhythm, 1st degree AV block Ectopy: none Stress ECG: Sinus Rhythm, 1st degree AV block ST Change: Nondiagnostic low heart rate Arrhythmia: None Recovery ECG: Sinus Rhythm, 1st degree AV block Recovery ST Change: Nondiagnostic low heart rate Recovery Arrhythmia: none Clinical Stress Symptoms: Dyspnea Angina Score: None Rate Pressure Product: [id number] Stress ECG Conclusion 1. Resting EKG showed borderline first-degree AV block 2. Patient underwent testing using pharmacologic stress with regadenoson 3. Peak heart rate achieved was 53% of maximal predicted for age 4. Hypertension was present throughout 5. The electrocardiographic portion of the test was nondiagnostic. 6. See MPI report Stress Test Summary STAGE HR BP SpO2 Symptoms NOTES Supine 68 188/84 91 1 min post Lexiscan injection 75 174/90 93 3 min post Lexiscan injection 76 182/83 93 6 min post Lexiscan injection 75 184/83 90 Lexiscan done due to phyiscal limitations. Patient experienced moderate SOB. All symptoms resolved at end of test. Patient left ambulatory in no obvious distress. MPI Conclusion Myocardial perfusion is normal. There is no ischemia or evidence of prior infarction EF is 53% with normal wall motion
[2025-02-26] MEDS: Regadenoson 0.4 MG/5 ML SYR IVP (11:25)
== END 2025-02-26 00:49 ==
LOC: DI 00:29
PROVIDERS: PCP Nurse Practitioner Family; Visit Provider Internal Medicine Cardiovascular Disease
DX: R07.9 Chest pain, unspecified (principal)
CPT/HCPCS: 78452; 93017; J2785

== ENCOUNTER 2025-02-28 08:47 | Inpatient (IN) | payer OTHER, SELFPAY ==
[2025-02-28] VITALS (35 sets, daily range): BP systolic 114–182; BP diastolic 47–76; PULSE 67–120; RESP 9–29; TEMP 36.6–37.1; O2SAT 83–98
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
[2025-02-28 10:13] LABS: Abs Immature Grans 0.02 10^3/uL (0.0-0.06); HCT 42.5 % (36.0-46.0); HGB 12.1 g/dL (11.2-15.7); Immature Grans % 0.4 %; MCH 24.7 pg (27.0-33.0); MCHC 28.5 % (32.0-36.0); MCV 87 fL (80-95); MPV 10.4 fL (8.0-11.0); Platelet Count 187 10^3/uL (130-400); RBC 4.90 10^6/uL (3.93-5.22); RDW 16.3 % (11.7-14.6); RDW-SD 51.6 fL; WBC 5.05 10^3/uL (4.4-10.8)
[2025-02-28 10:22] LABS: ESR 57 mm/hr (0-30)
--- NOTE | 2025-02-28 10:23 | DI.RAD_ITS ---
Exam(s) XR ANKLE RT COMPLETE EXAM: XR ANKLE RT COMPLETE CLINICAL HISTORY: Chronic right wound. TECHNIQUE: 2D digital imaging was performed. Four images were obtained. AP and lateral views were obtained. COMPARISON: CR XR TIB/FIB RT from 12/24/2024 FINDINGS: BONES: There are stable post operative changes present. There are stable lucency seen about the orthopedic hardware. No osseous destructive changes are seen to suggest osteomyelitis. No new fracture or dislocation. JOINTS: There is stable fusion of the ankle joint and the subtalar joint. SOFT TISSUE: There is diffuse soft tissue swelling of the lower leg and foot. No soft tissue air is seen. Dystrophic calcifications are seen in the soft tissues of the lower extremity. IMPRESSION: 1. Stable postoperative changes. 2. No bony destructive changes are seen to suggest osteomyelitis. 3. There is no acute fracture or dislocation. DATA REPOSITORY: RADIATION DOSE DELIVERED:
[2025-02-28 10:34] LABS: ALT 26 U/L (14-59); AST 28 U/L (15-37); Albumin 2.6 g/dL (3.4-5.0); Alkaline Phosphatase 85 U/L (46-116); Anion Gap 3.2 mmol/L (3-11); BUN 18 mg/dL (7-18); Bilirubin, Total 0.6 mg/dL (0.2-1.0); C-Reactive Protein 1.62 mg/dL (<or=0.5); CO2 37.8 mmol/L (21.0-32.0); Calcium 8.5 mg/dL (8.5-10.1); Chloride 100 mmol/L (98-107); Estimated GFR 97.72 (mL/min/1.73m2); Glucose 111 mg/dL (74-106); Magnesium 2.0 mg/dL (1.8-2.4); Potassium 3.8 mmol/L (3.5-5.1); Sodium 141 mmol/L (136-145); Total Protein 7.8 g/dL (6.4-8.2)
[2025-02-28] MEDS: VANCOMYCIN/WATER (PEG) 1.75 GM/350 ML BAG IV (10:57)
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
[2025-02-28] MEDS: Ibuprofen 600 MG TAB PO (15:17)
[2025-02-28] MEDS: Acetaminophen 325 MG TAB 650 MG PO ×2 (15:43→23:35)
--- NOTE | 2025-02-28 16:07 | PHA.REVIEW2 ---
Pharmacy Admission Review Admission Clinical Review Admission Pharmacy Review: clindamycin Allergy (Severe, Verified 02/28/25 09:11) unknown bee venom protein (honey bee) Allergy (Intermediate, Verified 02/28/25 09:11) dizziness, vomiting and swelling clarithromycin Allergy (Mild, Verified 02/28/25 09:11) unknown halothane Allergy (Mild, Verified 02/28/25 09:11) unknown Penicillins Allergy (Unknown, Verified 02/28/25 09:11) unknown amoxicillin Allergy (Verified 02/28/25 09:11) unknown Opioids - Morphine Analogues Adverse Reaction (Severe, Verified 02/28/25 09:11) Nausea,vomiting tramadol Adverse Reaction (Severe, Verified 02/28/25 09:11) NAUSEA, VOMITING diazepam Adverse Reaction (Mild, Verified 02/28/25 09:11) HALLUCINATIONS skintastic Allergy (Uncoded 02/28/25 09:11) unknown Resuscitation Status Full Code Height 5 ft 2 in Weight 112 kg Comments Comments/Follow Ups: No ABX currently ordered. Patient was ordered vancomycin in ED but per provider they did not receive most of the dose as the IV infiltrated. Provider planning on ordering another loading dose and then dosing per pharmacy protocol but no orders put in yet. Will reach out to provider to remind them. Pharmacy Admission Review Renal Dosing Renal Dosing: BUN 18 mg/dL (7-18) 02/28/25 10:01 Creatinine 0.7 mg/dL (0.55-1.02) 02/28/25 10:01 Medications needing adjustments: Reviewed (CrCl 68.93 mL/min) List of meds needing interventions: Current medications are okay Anticoagulation Anticoagulation: Hgb 12.1 g/dL (11.2-15.7) 02/28/25 10:01 Hct 42.5 % (36.0-46.0) 02/28/25 10:01 Plt Count 187 10^3/uL (130-400) 02/28/25 10:01 Creatinine 0.7 mg/dL (0.55-1.02) 02/28/25 10:01 DVT Prophylaxis: Intervened (recommended BID dosing due to BMI > 40, provider was okay with this) Medications: Enoxaparin (40mg BID) Opiate Usage Evaluate Pain Scale/Pains Meds: Reviewed (hydrocodone/homatropine 5mL q6h PRN - no doses given) Relevant Labs Relevant Labs: ESR 57 mm/hr (0-30) H 02/28/25 10:01 Sodium 141 mmol/L (136-145) 02/28/25 10:01 Potassium 3.8 mmol/L (3.5-5.1) 02/28/25 10:01 Chloride 100 mmol/L (98-107) 02/28/25 10:01 Magnesium 2.0 mg/dL (1.8-2.4) 02/28/25 10:01 C-Reactive Protein 1.62 mg/dL (<or=0.5) H 02/28/25 10:01 Electrolytes, C-Reactive P, ESR: Reviewed Cardiac Review Cardiac Review: Blood Pressure 114/55 1441 Blood Pressure 159/75 1331 Blood Pressure 162/63 1316 Blood Pressure 159/51 1301 Blood Pressure 182/67 1250 Blood Pressure 153/76 1146 Blood Pressure 166/62 1131 Blood Pressure 166/68 1116 Blood Pressure 149/65 1101 Blood Pressure 177/65 1057 Blood Pressure 145/71 1031 Blood Pressure 141/62 1021 Blood Pressure 134/47 0906 BP, HR, EF%: Reviewed (HR WNL, oxygen flow rate = 2) List meds needing interventions: Has orders for amlodipine 5mg daily, HCTZ 37.5mg daily, metoprolol XL 50mg daily and torsemide 20mg daily QTc Review QTc: Reviewed (440 from 08/07/23 - most recent EKG on file) IV to PO Switch IV Medications: Reviewed Home Meds Home Med List reviewed: Intervened Relevent Home Meds Not ordered & why?: Had valacyclovir on home med list, last filled 09/02 for 7 day supply. Order was put in. Asked provider if they wanted patient to have this, per provider they did not want to continue. Canceled order and removed from home med list. Changed 2 meds to patients own (HIV meds - non formulary). Called nurse who said they were brought in from home. Will verify and send back up to floor once meds are brought to pharmacy. Current Meds Current Medication Order Review: Reviewed Pharmacy Antibiotic Review Relevant Labs: Relevant Labs 02/28/25 10:01 C-Reactive Protein 1.62 H Comments Comments/Follow Ups: No ABX currently ordered. Patient was ordered vancomycin in ED but per provider they did not receive most of the dose as the IV infiltrated. Provider planning on ordering another loading dose and then dosing per pharmacy protocol but no orders put in yet. Will reach out to provider to remind them.
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
[2025-02-28] MEDS: VANCOMYCIN/WATER (PEG) 2 GM/400 ML BAG IVPB (18:31)
[2025-02-28] MEDS: Miconazole 2% Topical Powder 85 GM BTL TP (20:12)
[2025-02-28] MEDS: Enoxaparin 40 MG/0.4 ML SYR SC (20:13)
[2025-02-28] MEDS: Normal Saline Flush 10 ML SYR IVP (20:14)
--- NOTE | 2025-03-01 | DI.US_ITS ---
Exam(s) US LOWER EXTREMITY VENOUS RT EXAM: US LOWER EXTREMITY VENOUS RT CLINICAL HISTORY: DVT. TECHNIQUE: Lower extremity venous ultrasound performed using grayscale, color- flow, and spectral Doppler analysis. COMPARISON: CR XR TIB/FIB RT from 12/24/2024 US POCUS EXAM from 02/28/2025 FINDINGS: Exam is limited by the patient's body habitus The common femoral, femoral and popliteal veins demonstrate normal compressibility, augmentation, and color Doppler. The posterior tibial veins are patent. There is a small focal area thrombus in the distal saphenous vein in the distal thigh measuring 3.7 cm in length. There is edema in the subcutaneous fat of the lower leg. No hematoma or Devine's cyst is seen. IMPRESSION: Thrombus in the distal saphenous vein. No evidence of DVT. DATA REPOSITORY:
[2025-03-01] MEDS: Normal Saline Flush 10 ML SYR IVP ×4 (01:56→20:52)
[2025-03-01] MEDS: VANCOMYCIN 1,500 MG in Normal Saline 250 ML 166.6666 MG IVPB (01:56)
[2025-03-01] MEDS: Water,Injection,Sterile 10 ML VIAL (01:58)
[2025-03-01] MEDS: Ibuprofen 600 MG TAB PO (06:12)
[2025-03-01 06:42] LABS: Abs Immature Grans 0.02 10^3/uL (0.0-0.06); HCT 42.0 % (36.0-46.0); HGB 11.8 g/dL (11.2-15.7); Immature Grans % 0.4 %; MCH 24.4 pg (27.0-33.0); MCHC 28.1 % (32.0-36.0); MCV 87 fL (80-95); MPV 10.5 fL (8.0-11.0); Platelet Count 152 10^3/uL (130-400); RBC 4.83 10^6/uL (3.93-5.22); RDW 16.3 % (11.7-14.6); RDW-SD 51.8 fL; WBC 4.93 10^3/uL (4.4-10.8)
[2025-03-01 06:58] LABS: Anion Gap 0.1 mmol/L (3-11); BUN 18 mg/dL (7-18); CO2 38.9 mmol/L (21.0-32.0); Calcium 8.4 mg/dL (8.5-10.1); Chloride 101 mmol/L (98-107); Estimated GFR 72.28 (mL/min/1.73m2); Glucose 103 mg/dL (74-106); Potassium 3.7 mmol/L (3.5-5.1); Sodium 140 mmol/L (136-145)
[2025-03-01 08:00] VITALS: BP 118/54; PULSE 73; RESP 16; TEMP 36.8; O2SAT 92
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
[2025-03-01] MEDS: amLODIPine 5 MG TAB PO (10:34)
[2025-03-01] MEDS: hydroCHLOROthiazide 25 MG TAB 37.5 MG PO (10:35)
[2025-03-01] MEDS: Torsemide 20 MG TAB PO (10:35)
[2025-03-01] MEDS: Metoprolol CR 50 MG TABCR PO (10:35)
[2025-03-01] MEDS: Aspirin 325 MG TAB PO (10:38)
[2025-03-01] MEDS: Lactobacillus Acidophilus CAP 1 CAP PO (10:39)
[2025-03-01] MEDS: Enoxaparin 40 MG/0.4 ML SYR SC (10:39)
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
[2025-03-01] MEDS: VANCOMYCIN/WATER (PEG) 1.5 GM/300 ML BAG IVPB (11:42)
--- NOTE | 2025-03-01 12:12 | W.PM.PROGNOT ---
Date of Service Date of service: 03/01/25 Time of Service: 12:12 Assessment and Plan Assessment and plan (1) Cellulitis of right leg without foot: Status: Acute Assessment and plan: Sepsis criteria not met on admission X-ray w/o changes suggestive of osteomyelitis Pain is less US R LE for DVT r/o-- reporting having a Hx of DVT Ongoing vancomycin IV blood?cultures pending Surgical consult completed please read note; no intervention needed at this time. Recommending for patient to pursue plan for outpatient hyperbarric chamber with [facility] On weight based DVT prophylaxis with lovenox 60 mg SC BID (2) Chronic wound: Status: Acute Assessment and plan: Infected - improving Wound consult completed- Wound cultures: GNR- will add ceftriaxone and reevaluate As above (3) Stasis dermatitis of right lower extremity with venous ulcer due to chronic peripheral venous hypertension: Status: Acute Assessment and plan: Chronic - seen at [facility] wound clinic continue outpatient managment (4) Anxiety: Status: Chronic Assessment and plan: Continue to monitor Hx of TBI - increased symptoms when pace is perceived as been to fast by patient Consider low-dose lorazepam if needed during the stay only (5) HIV positive: Status: Chronic Assessment and plan: ongoing home medicine regimen (6) Hypertension: Status: Chronic Assessment and plan: Continue home meds (7) Morbid obesity: Status: Chronic Assessment and plan: GLP-1 on outpatient medicine list Continue outpatient management at discharge (8) Mild intermittent asthma: Status: Chronic Assessment and plan: PRN nebs (9) CHRISTIANA (obstructive sleep apnea): Status: Chronic Assessment and plan: Ongoing home CPAP Discussed with Dr. Denis Subjective Subjective Patient reports: feels better, pain is less, tolerating liquids well, tolerating a regular diet, voiding w/o difficulty and bowel movement; denies diarrhea, blood in stool, vomiting, shortness of breath or fever Exam Narrative Exam Narrative: 64 years old morbidly obese female patient without acute distress, alert oriented X4 no focal neuro-deficit, clear lungs, S1-S2, no murmur positive pulses all 4 extremities, abdomen is nondistended soft and nontender, right lower extremity lymphedema more than left lower extremity; improving right lower extremity ulcer with erythema and edema Objective Last Vital Signs Temp 36.8 C 03/01/25 08:00 Pulse 73 03/01/25 08:00 Resp 16 03/01/25 08:00 BP 118/54 L 03/01/25 08:00 Pulse Ox 92 03/01/25 08:00 Laboratory Results - last 24 hr 03/01/25 06:18 WBC 4.93 RBC 4.83 Hgb 11.8 Hct 42.0 MCV 87 MCH 24.4 L MCHC 28.1 L RDW 16.3 H Plt Count 152 MPV 10.5 Immature Gran % 0.4 Neutrophils % 70.6 Lymphocytes % 18.5 Monocytes % 9.7 Eosinophils % 0.6 Basophils % 0.2 Nucleated RBC % 0.0 Absolute Neutrophils 3.48 Absolute Lymphocytes 0.91 L Absolute Monocytes 0.48 Absolute Eosinophils 0.03 Absolute Basophils 0.01 Sodium 140 Potassium 3.7 Chloride 101 Carbon Dioxide 38.9 H Anion Gap 0.1 L BUN 18 Creatinine 0.9 Est GFR (CKD-EPI 2020) 72.28 Glucose 103 Calcium 8.4 L Time Spent with Patient Time Spent with Patient: >50 minutes Time was spent: preparing to see the patient(eg.review tests), obtaining and/or reviewing separately otained hiistory, ordering medications,tests, procedures, referring, communicating with other health career information specialist, indepentently interpreting results, counseling the patient and care coordination
--- NOTE | 2025-03-01 12:20 | W.PM.PROGNOT ---
Date of Service Date of service: 03/01/25 Time of Service: 12:20 Assessment and Plan Assessment and plan (1) Chronic venous hypertension (idiopathic) with other complications of right lower extremity: Status: Acute Assessment and plan: complex wound of RLE with cellulitis now. Improved on exam. continue IV abx, goal is to treat cellulitis and stabilize pt to discharge and return to outpt wound care plan. Continue current inpt plan w medihoney and dressings that allow exam of leg and wound. when she discharges she shol (2) Cellulitis of right leg without foot: Status: Acute (3) Stasis dermatitis of right lower extremity with venous ulcer due to chronic peripheral venous hypertension: Status: Acute Subjective Subjective Interval history since last seen: pt notes pain is the same but redness in right leg is better. she feels like she isnt being listened to. She feels thickening of the tissue in her left hip from sitting in the bed. Exam Narrative Exam Narrative: awake, NAD eomi, MMM normal resp effort RLE ulcer with improved appearance. wallpaper cleaner, less yellow mucous over surface. decreased intensity of erythema of the ankle and lower leg, decreased erythema up thigh to groin. persistent edema in thigh w tenderness. Objective Last Vital Signs Temp 98.2 F 03/01/25 08:00 Pulse 73 03/01/25 08:00 Resp 16 03/01/25 08:00 BP 118/54 L 03/01/25 08:00 Pulse Ox 92 03/01/25 08:00 Laboratory Results - last 24 hr 03/01/25 06:18 WBC 4.93 RBC 4.83 Hgb 11.8 Hct 42.0 MCV 87 MCH 24.4 L MCHC 28.1 L RDW 16.3 H Plt Count 152 MPV 10.5 Immature Gran % 0.4 Neutrophils % 70.6 Lymphocytes % 18.5 Monocytes % 9.7 Eosinophils % 0.6 Basophils % 0.2 Nucleated RBC % 0.0 Absolute Neutrophils 3.48 Absolute Lymphocytes 0.91 L Absolute Monocytes 0.48 Absolute Eosinophils 0.03 Absolute Basophils 0.01 Sodium 140 Potassium 3.7 Chloride 101 Carbon Dioxide 38.9 H Anion Gap 0.1 L BUN 18 Creatinine 0.9 Est GFR (CKD-EPI 2020) 72.28 Glucose 103 Calcium 8.4 L Time Spent with Patient Time Spent with Patient: 25-34 minutes Time was spent: preparing to see the patient(eg.review tests), referring, communicating with other health child care centre manager, counseling the patient and care coordination
[2025-03-01 12:55] LABS: Vancomycin, Random 24.5 ug/mL
[2025-03-01] MEDS: cefTRIAXone 1 GM/50 ML BAG IVPB (14:49)
[2025-03-01] MEDS: Acetaminophen 325 MG TAB 650 MG PO (18:27)
[2025-03-01 19:36] VITALS: BP 142/69; PULSE 66; RESP 17; TEMP 36.6; O2SAT 94
[2025-03-01] MEDS: Enoxaparin 40 MG/0.4 ML SYR 60 MG SC (20:51)
[2025-03-01] MEDS: Miconazole 2% Topical Powder 85 GM BTL TP (20:51)
[2025-03-01] MEDS: VANCOMYCIN/WATER (PEG) 1.75 GM/350 ML BAG IVPB (22:45)
[2025-03-02] MEDS: Benzonatate 100 MG CAP PO (04:30)
[2025-03-02] MEDS: Ibuprofen 600 MG TAB PO ×2 (04:30→14:57)
[2025-03-02] MEDS: Cyclobenzaprine 10 MG TAB PO (04:30)
[2025-03-02] MEDS: Acetaminophen 325 MG TAB 650 MG PO ×2 (04:46→10:37)
[2025-03-02 06:00] VITALS: BP 120/64
[2025-03-02] MEDS: amLODIPine 5 MG TAB PO (06:02)
[2025-03-02] MEDS: Torsemide 20 MG TAB PO (06:03)
[2025-03-02] MEDS: hydroCHLOROthiazide 25 MG TAB 37.5 MG PO (06:03)
[2025-03-02 06:08] VITALS: PULSE 67
[2025-03-02 06:39] LABS: Abs Immature Grans 0.02 10^3/uL (0.0-0.06); HCT 40.2 % (36.0-46.0); HGB 11.9 g/dL (11.2-15.7); Immature Grans % 0.4 %; MCH 25.4 pg (27.0-33.0); MCHC 29.6 % (32.0-36.0); MCV 86 fL (80-95); MPV 10.6 fL (8.0-11.0); Platelet Count 182 10^3/uL (130-400); RBC 4.68 10^6/uL (3.93-5.22); RDW 16.5 % (11.7-14.6); RDW-SD 51.7 fL; WBC 4.63 10^3/uL (4.4-10.8)
[2025-03-02 07:09] VITALS: BP 93/82; PULSE 64; RESP 14; TEMP 35.5; O2SAT 92
[2025-03-02 07:11] LABS: Anion Gap 1.3 mmol/L (3-11); BUN 21 mg/dL (7-18); CO2 38.7 mmol/L (21.0-32.0); Calcium 8.4 mg/dL (8.5-10.1); Chloride 100 mmol/L (98-107); Estimated GFR 63.70 (mL/min/1.73m2); Glucose 97 mg/dL (74-106); Potassium 3.5 mmol/L (3.5-5.1); Sodium 140 mmol/L (136-145)
--- NOTE | 2025-03-02 08:57 | PDOC.CMPRO ---
Date of service: 03/02/25 Time of Service: 08:57 Care Management Progress Note Discharge Potential Discharge Needs: Surgical F/U Appt Anticipated Barriers to Discharge: None Identified Patient/Family Education Needs: Review discharge instructions, discuss Ask Me Three Transportation: Private vehicle Plan: Anticipate Manasa will be discharged home with no new services when medically cleared. She will follow up with her PCP and plan of care and transport with family. CM will follow and continue to support discharge planning efforts. Social Determinants of Health Screening Social Determinants of health last assessed in clinic: 02/28/25 Will the Patient Participate in the Screening?: Declined to provide Do you worry about having a steady place to live?: no Problems where you live: no known problems In the past 12 months, have you had to go without electric, gas, oil or water in your home?: no Has lack of transportation kept you from medical appointments or from doing things needed for daily living?: no Has anyone in your life made you feel unsafe or unsupported?: no How hard is it for you to pay for the very basics like food, housing, medical care, and heating? Would you say it is:: Not hard at all Do you want help finding or keeping work or a job?: I do not need or want help If for any reason you need help with day-to-day activities such as bathing, preparing meals, shopping, managing finances, etc., do you get the help you need?: I don?t need any help How often do you feel lonely or isolated from those around you?: Never Do you speak a language other than Yoruba at home?: No
[2025-03-02] MEDS: Lactobacillus Acidophilus CAP 1 CAP PO (09:49)
[2025-03-02] MEDS: Metoprolol CR 50 MG TABCR PO (09:50)
[2025-03-02] MEDS: Normal Saline Flush 10 ML SYR IVP ×2 (09:50→12:25)
[2025-03-02] MEDS: Aspirin 325 MG TAB PO (09:50)
[2025-03-02] MEDS: Enoxaparin 40 MG/0.4 ML SYR 60 MG SC (09:50)
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
[2025-03-02] MEDS: VANCOMYCIN/WATER (PEG) 1.75 GM/350 ML BAG IVPB (10:04)
[2025-03-02 11:01] VITALS: BP 122/54; PULSE 68; TEMP 36.5; O2SAT 92
[2025-03-02 11:59] VITALS: BP 122/54; BP 135/69; BP 138/68; PULSE 64; PULSE 72; PULSE 75
[2025-03-02] MEDS: levoFLOXacin 750 MG/150 ML BAG 100 MG IVPB (12:24)
--- NOTE | 2025-03-02 12:35 | NUR.NOTE ---
After my morning assessment, I informed the Patient that I would be back shortly with any medications that were due. She told me that she didn't think she had any. When I arrived with the medications that were due she became upset and weepy. She stated that someone had told her we would not bother her until 11. Patient is concerned that her medication schedule is different from home. She would like the times to be changed to mimic her home schedule. She feels that she is not included in her care. She would like her health information to be sent to [facility] daily and to be informed. Information reported off to the primary nurse
--- NOTE | 2025-03-02 14:37 | PT.INTREAT ---
PT Notes Visit Reasons: Cellulitis Date: 03/02/25 PRECAUTIONS: Fall. Standard. Activity as tolerated SUBJECTIVE: Pt in bed when approached for therapy this afternoon, agreed to participating [facility] therapy session. OBJECTIVE: ? PAIN: right leg wound area VITALS: Monitored by nursing Therapeutic Activities 42485: Direct one-on-one instruction in dynamic activities to improve functional performance. ?? BED MOBILITY/TRANSFERS? Rolling L/R: independent Supine-sit: ? independent? Sit-supine: ? ?independent? Sit-stand: ? independent ? Stand-sit: ?? independent? Bed-Chair:? ? independent? Chair-bed: independent Provided skilled cues and instruction on performance and technique throughout. Gait Training 57098: Direct one-on-one instruction and skilled instruction in: Movement sequencing Turning and movement with proper form Provided verbal cues for equipment management and technique Provided instruction in gait pattern Patient education regarding pacing and breathing techniques to maximize activity tolerance? GAIT? Assistive Device: Single walking stick ? Weight bearing: FWB Assist: ?supervision ? Distance:??150' x2 seated rest break in between distance ? Deviation: ?Low step height, short step length, excessive lateral lean and wide base gait, impaired toe off d/t ankle fusion. ? ASSESSMENT:?pt requested to go back in bed to rest to get ready for transport going back to home. PLAN: Continue with balance training, global strengthening and general conditioning for improved safety, mobility and activity tolerance until pt is ready for DC. TREATMENT CODE/TIME: [id number] 25mins (2:05-2:30pm)
[2025-03-02] MEDS: Apixaban 5 MG TAB 10 MG PO (15:10)
--- NOTE | 2025-03-02 15:31 | CMDISCH_ITS ---
Date of service: 03/02/25 Time of Service: 15:31 LACE Index Scoring Tool Questions: Length of Stay (in days): 2 Was the patient admitted via the E.D.?: Yes Comorbidities: PVD, Diabetes w/o Complication, Chronic Pulmonary Disease and AIDS E.D. Visits: 3 Answers: Total Score: 13 Risk of Readmission: High Risk Care Management Discharge Plan Reason for Hospitalization: cellulitis Discharge Plan: Manasa will be discharged home with no new services. She will follow up with her PCP, community providers and plan of care and transport with family. Patient/Family Education Needs: Review discharge instructions, limitations, follow up plan and discuss Ask Me Three SDOH Health Related Social Needs: Health related social needs risk of homeless lonely/is olated Health related social needs details lonley as getting older
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
== END 2025-03-02 16:53 | disposition home or self-care (01) | DRG 603 ==
LOC: ER 12:09 → MS 14:24
PROVIDERS: Admitting Provider Family Medicine; Emergency Provider Registered Nurse Emergency; PCP Nurse Practitioner Family; Responsible Provider Nurse Practitioner Acute Care; Visit Provider Family Medicine
DX: L03.115 Cellulitis of right lower limb (principal); I87.331 Chronic venous hypertension (idiopathic) with ulcer and inflammation of right lower extremity; Z68.44 Body mass index [BMI] 60.0-69.9, adult; L97.812 Non-pressure chronic ulcer of other part of right lower leg with fat layer exposed; I47.10 Supraventricular tachycardia, unspecified; Z21 Asymptomatic human immunodeficiency virus [HIV] infection status; R73.01 Impaired fasting glucose; I10 Essential (primary) hypertension; J45.20 Mild intermittent asthma, uncomplicated; E66.01 Morbid (severe) obesity due to excess calories; G47.33 Obstructive sleep apnea (adult) (pediatric); I87.2 Venous insufficiency (chronic) (peripheral); I89.0 Lymphedema, not elsewhere classified; M15.9 Polyosteoarthritis, unspecified; L65.9 Nonscarring hair loss, unspecified; F32.A Depression, unspecified; R26.9 Unspecified abnormalities of gait and mobility; R41.3 Other amnesia; F41.1 Generalized anxiety disorder; R32 Unspecified urinary incontinence; M51.26 Other intervertebral disc displacement, lumbar region; Z87.820 Personal history of traumatic brain injury; Z79.899 Other long term (current) drug therapy; B96.5 Pseudomonas (aeruginosa) (mallei) (pseudomallei) as the cause of diseases classified elsewhere; Z79.01 Long term (current) use of anticoagulants
CPT/HCPCS: 36410; 00123; 36415; 80048; 80053; 85652; 87040; 87077; 96365; 97162; 97530; 99285; J1650; 73610; 80202; 83735; 85025; 86140; 87070; 87186; 87205; 93971; 99223; 99233; 99239; J0131; J0696; J1956; J3373

== ENCOUNTER 2025-03-20 04:23 | Outpatient (CLI) | payer OTHER, SELFPAY ==
[2025-03-20] MEDS: Inhaler, Assist Device 1 EACH MC (11:38)
[2025-03-20] MEDS: Levalbuterol HFA 15 GM INH 4 PUFF IH (11:38)
--- NOTE | 2025-03-20 13:40 | W.PFT ---
Date of service: 03/20/25 Time of Service: 09:55 Pulmonary Function Test Result Indications: Dyspnea, cough Impression 1. Good patient effort was noted. ATS standards for reproducibility were met. 2. Spirometry showed moderate obstructive lung disease with an FEV1 of 52% (1.16 L). Midflows were reduced at 31% predicted 3. Following the administration of a bronchodilator there was not a significant response 4. TLC was normal. No evidence of restrictive lung disease. RV was elevated at 140%, suggestive of air trapping 5. DLCO was normal
== END 2025-03-20 04:24 | disposition home or self-care (01) ==
LOC: RT 04:23
PROVIDERS: PCP Nurse Practitioner Family; Visit Provider Internal Medicine Pulmonary Disease
DX: R06.02 Shortness of breath (principal); J44.9 Chronic obstructive pulmonary disease, unspecified; R05.9 Cough, unspecified
CPT/HCPCS: 94060; 94726; 94729

== ENCOUNTER 2025-05-23 17:35 | Inpatient (IN) | payer OTHER, SELFPAY ==
[2025-05-23] VITALS (47 sets, daily range): BP systolic 118–161; BP diastolic 39–72; PULSE 37–135; RESP 12–32; TEMP 36.6–36.8; O2SAT 83–97
--- NOTE | 2025-05-23 17:30 | RT.EKG_ITS ---
APPROVED REPORT Exam: Resting ECG Reason for Exam: dizziness Patient Location: E HR:69 bpm ECG Measurements Heart Rate 69 AXIS SC 264 P 41 QRSd 173 QRS 51 QT 447 T 89 QTc 480 Conclusion Sinus rhythm...normal P axis, V-rate 60- 99 Prolonged SC interval...SC >220, V-rate 50- 90 Probable left ventricular hypertrophy...(RaVL+SV3)xQRSd >300
--- NOTE | 2025-05-23 18:00 | DI.CT_ITS ---
Exam(s) CT BRAIN NECK CTA EXAM: CT BRAIN NECK CTA CLINICAL HISTORY: dizziness, headaches. TECHNIQUE: Imaging Protocol: Axial CT angiography was performed with multi- slice acquisition and multi-planar and MIP reconstructions. CONTRAST MATERIAL: Intravenous: Omnipaque 350 Contrast volume:100 ml COMPARISON: CT CT HEAD CERVICAL SPINE WO from 09/18/2019 FINDINGS: CT Head W/O and W contrast: Ventricles and Extra axial spaces: Normal in size and morphology for the patient's age. Hemorrhage: None. Cerebral parenchyma: No evidence of acute infarct or mass. Midline shift: None. Brainstem/Cerebellum: No acute findings.. Calvarium: Normal. Visualized Paranasal sinuses/Mastoids: Small mucous retention cyst at the floor of the right maxillary sinus. Soft Tissues: Unremarkable. Enhancement: Normal. Venous sinuses are patent. CTA Brain W: Internal Carotid Arteries: Right: No aneurysm, occlusion or significant stenosis. Left: No aneurysm, occlusion or significant stenosis. Middle Cerebral Arteries: Right: No aneurysm, occlusion or significant stenosis. Left: No aneurysm, occlusion or significant stenosis. Anterior Cerebral Arteries: Right: No aneurysm, occlusion or significant stenosis. Left: No aneurysm, occlusion or significant stenosis. Posterior cerebral Arteries: Right: No aneurysm, occlusion or significant stenosis. Left: No aneurysm, occlusion or significant stenosis. Vertebral Arteries: Right: No aneurysm, occlusion or significant stenosis. Left: No aneurysm, occlusion or significant stenosis. Basilar Artery: No aneurysm, occlusion or significant stenosis. CTA Neck W: Visualized aorta: Unremarkable. Visualized pulmonary arteries: Unremarkable. Subclavian arteries: Unremarkable. Common Carotid: Right: Mild calcification at the common carotid bulb. Tortuous proximally. No dissection, occlusion or significant stenosis. Left: Small calcific focus at the proximal internal carotid artery. No dissection, occlusion or significant stenosis. External Carotid: Right: No dissection, occlusion or significant stenosis. Left: No dissection, occlusion or significant stenosis. Internal Carotid: Right: No dissection, occlusion or significant stenosis. Left: No dissection, occlusion or significant stenosis. Vertebral Artery: Right: No dissection, occlusion or significant stenosis. Left: No dissection, occlusion or significant stenosis. Lung Apices: No acute findings. Bones: No acute abnormality. Soft Tissues: Normal. IMPRESSION: 1. CTA brain: Normal CTA examination of the [place]. 2. Head CT: No acute abnormality. 3. CTA neck: Mild calcific plaque at the proximal internal carotid arteries. No evidence of occlusion, significant stenosis or dissection. The preliminary [facility] report was reviewed. RADIATION DOSE DELIVERED: 2,463.33mGy.cm Total DLP DATA REPOSITORY: All CT scans at this facility are submitted to the National Radiology Data Registry (NRDR) Dose Index Registry (DIR) with the [employer] (ACR). RADIATION OPTIMIZATION: All CT scans at this facility use at least one of these dose optimization techniques: automated exposure control; mA and/or kV adjustment per patient size (includes targeted exams where dose is matched to clinical indication); or iterative reconstruction.
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
[2025-05-23] MEDS: LORazepam 1 MG TAB PO (18:23)
[2025-05-23] MEDS: Meclizine 25 MG TAB PO (18:41)
[2025-05-23 18:55] LABS: Abs Immature Grans 0.02 10^3/uL (0.0-0.06); HCT 41.8 % (36.0-46.0); HGB 12.5 g/dL (11.2-15.7); Immature Grans % 0.4 %; MCH 25.9 pg (27.0-33.0); MCHC 29.9 % (32.0-36.0); MCV 87 fL (80-95); MPV 10.1 fL (8.0-11.0); Platelet Count 150 10^3/uL (130-400); RBC 4.83 10^6/uL (3.93-5.22); RDW 22.3 % (11.7-14.6); RDW-SD 69.7 fL; WBC 5.27 10^3/uL (4.4-10.8)
[2025-05-23 19:11] LABS: INR 1.0 (0.9-1.1); PTT Activated 23.9 sec (20.6-30.2); Prothrombin Time 10.4 sec (9.1-11.1)
[2025-05-23 19:13] LABS: Anisocytosis 2+
[2025-05-23 19:16] LABS: ALT 22 U/L (14-59); AST 32 U/L (15-37); Albumin 3.0 g/dL (3.4-5.0); Alkaline Phosphatase 80 U/L (46-116); Anion Gap 4.7 mmol/L (3-11); BUN 20 mg/dL (7-18); Bilirubin, Total 0.4 mg/dL (0.2-1.0); CO2 35.3 mmol/L (21.0-32.0); Calcium 8.9 mg/dL (8.5-10.1); Chloride 99 mmol/L (98-107); Estimated GFR 72.28 (mL/min/1.73m2); Glucose 127 mg/dL (74-106); Potassium 3.6 mmol/L (3.5-5.1); Sodium 139 mmol/L (136-145); Total Protein 8.2 g/dL (6.4-8.2)
[2025-05-23 19:19] LABS: Magnesium 2.0 mg/dL (1.8-2.4); Troponin I 14 ng/L (<or=51)
[2025-05-23] MEDS: Normal Saline - Diluent 50 ML VIAL IJ (19:20)
[2025-05-23] MEDS: Omnipaque 350 MG/ML 100 ML BTL IJ (19:21)
[2025-05-23] MEDS: Normal Saline Flush 10 ML SYR IVP (19:22)
--- NOTE | 2025-05-23 19:45 | RT.EKG_ITS ---
APPROVED REPORT Exam: Resting ECG Reason for Exam: arrythmia Patient Location: E HR:68 bpm ECG Measurements Heart Rate 68 AXIS AK 260 P 25 QRSd 168 QRS -15 QT 500 T 92 QTc 456 Conclusion Sinus bradycardia...rate< 60 Atrial premature complex...SV complex w/ short R-R interval Prolonged AK interval...AK >220, V-rate 50- 90 Left bundle branch block...QRSd>120, broad/notched R ST elevation secondary to IVCD...Multiple VCG criteria ?sick sinus
--- NOTE | 2025-05-23 20:00 | DI.RAD_ITS ---
Exam(s) XR PORTABLE CHEST AP EXAM: XR PORTABLE CHEST AP CLINICAL HISTORY: chest pain TECHNIQUE: 2D digital imaging was performed. COMPARISON: CT CT CHEST PE CTA from 08/07/2023 FINDINGS: Exam is limited by overlying monitoring leads and pads. LUNGS: Clear where visualized. No pleural abnormality seen. HEART: Normal size. AORTA: Normal diameter. BONES: Unremarkable for age. Soft tissues: Unremarkable. IMPRESSION: No acute findings. The preliminary [facility] report was reviewed. DATA REPOSITORY: RADIATION DOSE DELIVERED:
--- NOTE | 2025-05-23 20:14 | DI.[facility]_ITS ---
PROCEDURE INFORMATION: Exam: CTA Head Without And With Contrast, Arteriography Exam date and time: 05/23/2025 19:14 Age: 64 years old Clinical indication: Other: Dizziness, headaches TECHNIQUE: Imaging protocol: Computed tomographic angiography of the head without and with contrast. Exam focused on the arteries. 3D rendering (Not supervised by radiologist): MIP and/or 3D reconstructed images were created by the technologist. Contrast material: OMNIPAQUE 350; Contrast volume: 70 ml; Contrast route: INTRAVENOUS (IV); COMPARISON: CT HEAD CERVICAL SPINE WO 09/18/2019 23:08 FINDINGS: ANTERIOR CIRCULATION: Right internal carotid artery: Intracranial segment is patent with no significant stenosis. No aneurysm. Right middle cerebral artery: No occlusion or significant stenosis. No aneurysm. Right anterior cerebral artery: No occlusion or significant stenosis. No aneurysm. Left internal carotid artery: Intracranial segment is patent with no significant stenosis. No aneurysm. Left middle cerebral artery: No occlusion or significant stenosis. No aneurysm. Left anterior cerebral artery: No occlusion or significant stenosis. No aneurysm. POSTERIOR CIRCULATION: Right vertebral artery: No occlusion or significant stenosis. No aneurysm. Left vertebral artery: No occlusion or significant stenosis. No aneurysm. Basilar artery: No occlusion or significant stenosis. No aneurysm. Right posterior cerebral artery: No occlusion or significant stenosis. No aneurysm. Left posterior cerebral artery: No occlusion or significant stenosis. No aneurysm. HEAD: Brain: No mass, mass effect, or midline shift. No edema or hemorrhage. Cerebral ventricles: . No ventriculomegaly. Bones: . No acute fracture. Orbital cavities: Bilateral exophthalmos. Paranasal sinuses: No acute sinusitis. Mastoid air cells: No mastoid effusion. Soft tissues: Unremarkable. IMPRESSION: No acute arterial pathology. No large vessel occlusion. No intracranial edema or hemorrhage. PROCEDURE INFORMATION: Exam: CTA Neck Without And With Contrast Exam date and time: 05/23/2025 19:14 Age: 64 years old Clinical indication: Other: Dizziness, headaches TECHNIQUE: Imaging protocol: Computed tomographic angiography of the neck without and with contrast. Exam focused on the cervical segments of the vasculature. 3D rendering (Not supervised by radiologist): MIP and/or 3D reconstructed images were created by the technologist. Contrast material: OMNIPAQUE 350; Contrast volume: 70 ml; Contrast route: INTRAVENOUS (IV); COMPARISON: CT HEAD CERVICAL SPINE WO 09/18/2019 23:08 FINDINGS: Right common carotid artery: No significant stenosis. No dissection or occlusion. Right internal carotid artery: Right ICA atherosclerosis without hemodynamically significant stenosis. No dissection. Right external carotid artery: No occlusion or significant stenosis. Left common carotid artery: No significant stenosis. No dissection or occlusion. Left internal carotid artery: Left ICA atherosclerosis without hemodynamically significant stenosis. No dissection. Left external carotid artery: No occlusion or significant stenosis. Right vertebral artery: No significant stenosis. No dissection or occlusion. Left vertebral artery: No significant stenosis. No dissection or occlusion. Soft tissues: Prominent subcutaneous fat. Bones/joints: No acute fracture or subluxation. IMPRESSION: No acute arterial pathology. Patent carotid and vertebral system bilaterally. REFERENCES: NASCET CRITERIA. The degree of stenosis in the cervical segment of the internal carotid artery is based on NASCET criteria. Normal is no stenosis. Mild is less than 50% stenosis. Moderate is 50-69% stenosis. Severe is 70% to 99% stenosis. Total occlusion is no detectable patent lumen. Dictated and Authenticated by: Margaret Gunderson MD. Orderin Claudia Soler MD
--- NOTE | 2025-05-23 20:34 | DI.[facility]_ITS ---
PROCEDURE INFORMATION: Exam: XR Chest Exam date and time: 05/23/2025 20:25 Age: 64 years old Clinical indication: Other: Chest pain TECHNIQUE: Imaging protocol: Radiologic exam of the chest. Views: 1 view. COMPARISON: CT CHEST PE CTA 08/07/2023 22:12 FINDINGS: Lungs: Low lung volumes. Interstitial and vascular crowding appearing technique related. No robert airspace consolidation on portable imaging. Pleural spaces: No pleural effusion. No pneumothorax. Heart/Mediastinum: The cardiac silhouette is upper limits of normal. Bones/joints: No acute fracture. IMPRESSION: Negative portable chest. Dictated and Authenticated by: Margaret Gunderson MD. Orderin Claudia Soler MD
[2025-05-23] MEDS: diazePAM 10 MG/2 ML SYR 2.5 MG IVP (20:48)
[2025-05-23 21:09] LABS: Troponin I 16 ng/L (<or=51)
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
[2025-05-23 22:14] LABS: Troponin I 14 ng/L (<or=51)
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
[2025-05-23 23:27] LABS: TSH 5.71 uIU/mL (0.36-3.74)
[2025-05-24 01:00] VITALS: PULSE 71; RESP 19; O2SAT 94
[2025-05-24] MEDS: LORazepam 1 MG TAB PO (01:57)
[2025-05-24 04:38] VITALS: O2SAT 92
[2025-05-24 04:40] LABS: COVID-19 PCR Negative (Negative); RSV PCR Negative (Negative)
[2025-05-24 04:51] VITALS: BP 115/52; PULSE 61; RESP 23; O2SAT 92
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
== END 2025-05-24 05:42 | disposition short-term general hospital (02) | DRG 309 ==
LOC: ER 20:37 → ICU 22:32
PROVIDERS: Admitting Provider Family Medicine; Emergency Provider Emergency Medicine; PCP Nurse Practitioner Family; Visit Provider Family Medicine
DX: I49.5 Sick sinus syndrome (principal); I87.311 Chronic venous hypertension (idiopathic) with ulcer of right lower extremity; L97.819 Non-pressure chronic ulcer of other part of right lower leg with unspecified severity; Z59.811 Housing instability, housed, with risk of homelessness; Z68.43 Body mass index [BMI] 50.0-59.9, adult; J44.9 Chronic obstructive pulmonary disease, unspecified; J45.20 Mild intermittent asthma, uncomplicated; F32.A Depression, unspecified; Z21 Asymptomatic human immunodeficiency virus [HIV] infection status; I10 Essential (primary) hypertension; E66.01 Morbid (severe) obesity due to excess calories; G47.33 Obstructive sleep apnea (adult) (pediatric); R00.1 Bradycardia, unspecified; R45.89 Other symptoms and signs involving emotional state; G89.4 Chronic pain syndrome; M15.9 Polyosteoarthritis, unspecified; R26.89 Other abnormalities of gait and mobility; R41.3 Other amnesia; Z87.820 Personal history of traumatic brain injury; F41.1 Generalized anxiety disorder; Z96.643 Presence of artificial hip joint, bilateral; Z79.899 Other long term (current) drug therapy
CPT/HCPCS: 00123; 36415; 70496; 70498; 80053; 85027; 87637; 93005; 96374; 99285; 71045; 83735; 84443; 84484; 85025; 85610; 85730; 93010; 99223; 99238; J3360; J3490